=== PATIENT | male | born 1980 | race African-American/Black ===

== ENCOUNTER 2016-09-24 03:04 | Emergency (ER) | payer MEDICAID ==
[~2016-09-24] VITALS: Ht 188 cm; Wt 70.8 kg
[~2016-09-24 03:04] MED LIST: CARI-277 PO; NOR10T PO
[2016-09-24 04:28] LABS: Basophils # (auto) 0 uL; Basophils % (auto) 0.5 % (0.0-2.0); Eosinophils # (auto) 0.2 uL; Eosinophils % (auto) 4.3 % (0.0-7.0); Hematocrit 35.1 % (41.0-53.0); Hemoglobin 11.9 g/dL (13.5-17.5); Lymphocytes # (auto) 1.1 uL; Lymphocytes % (auto) 22.5 % (10.0-50.0); Mean Corpuscular Hemoglobin 30.2 pg (28.0-32.0); Mean Corpuscular Hgb Conc. 33.8 g/dL (32.0-36.0); Mean Corpuscular Volume 89.2 fL (80.0-100.0); Mean Platelet Volume 6.9 fL (7.4-10.4); Monocytes # (auto) 0.3 uL; Monocytes % (auto) 5.3 % (0.0-12.0); Neutrophils # (auto) 3.2 uL; Neutrophils % (auto) 67.4 % (37.0-80.0); Platelet Count (auto) 214 10^3/uL (140-450); Red Cell Distribution Width 13.1 % (11.6-16.0); White Blood Cell 4.7 10^3/uL (4.4-10.8)
[2016-09-24 04:50] LABS: Albumin 3.6 g/dL (3.4-5.0); BUN/Creatinine Ratio 13.2; Potassium 3.9 mmol/L (3.5-5.1)
[2016-09-24 04:53] LABS: Bilirubin, Total 0.4 mg/dL (0.2-1.0); Total Protein 6.6 g/dL (6.4-8.2)
[2016-09-24 07:30] VITALS: BP 117/71
[2016-09-24] MEDS ORDERED: ONDANSETRON HCL 4 MG/2 ML VIAL IV ONE (07:30)
[2016-09-24] MEDS ORDERED: HYDROmorphone HCL 2 MG/ML VL IV ONE (07:30)
[2016-09-24] MEDS ORDERED: HYDROcodone-ACET 10/325MG TAB PO ONE (08:00)
== END 2016-09-24 08:51 | disposition home or self-care (01) ==
LOC: ER 03:06
DX: R19.07 Generalized intra-abdominal and pelvic swelling, mass and lump (principal); G89.29 Other chronic pain
CPT/HCPCS: 36415; 74176; 80053; 85025

== ENCOUNTER 2016-10-22 02:16 | Emergency (ER) | payer MEDICAID ==
[~2016-10-22] VITALS: Ht 188 cm; Wt 70.8 kg
[2016-10-22 02:35] VITALS: BP 103/74
[2016-10-22 04:15] LABS: Basophils # (auto) 0 uL; Basophils % (auto) 0.3 % (0.0-2.0); CONDITION Y; Eosinophils # (auto) 0.2 uL; Eosinophils % (auto) 4.1 % (0.0-7.0); Hematocrit 36.2 % (41.0-53.0); Hemoglobin 12.2 g/dL (13.5-17.5); Lymphocytes # (auto) 1.2 uL; Lymphocytes % (auto) 26.2 % (10.0-50.0); Mean Corpuscular Hemoglobin 29.9 pg (28.0-32.0); Mean Corpuscular Hgb Conc. 33.7 g/dL (32.0-36.0); Mean Corpuscular Volume 88.8 fL (80.0-100.0); Mean Platelet Volume 7.2 fL (7.4-10.4); Monocytes # (auto) 0.2 uL; Monocytes % (auto) 5.2 % (0.0-12.0); Neutrophils # (auto) 2.8 uL; Neutrophils % (auto) 64.2 % (37.0-80.0); Platelet Count (auto) 233 10^3/uL (140-450); White Blood Cell 4.4 10^3/uL (4.4-10.8)
[2016-10-22 04:35] LABS: Albumin 3.7 g/dL (3.4-5.0); BUN/Creatinine Ratio 11.8; Calcium 8.5 mg/dL (8.5-10.1); Potassium 3.6 mmol/L (3.5-5.1)
[2016-10-22 04:38] LABS: Bilirubin, Total 0.4 mg/dL (0.2-1.0); Total Protein 7.1 g/dL (6.4-8.2)
== END 2016-10-22 07:11 | disposition left against medical advice (07) ==
LOC: ER 02:19
DX: R10.9 Unspecified abdominal pain (principal); Z53.21 Procedure and treatment not carried out due to patient leaving prior to being seen by health care provider
CPT/HCPCS: 36415; 80053; 82150; 83690; 85025

== ENCOUNTER 2017-01-13 02:11 | Emergency (ER) | payer MEDICAID ==
[~2017-01-13] VITALS: Ht 188 cm; Wt 71.7 kg
[2017-01-13 02:49] LABS: Basophils # (auto) 0 uL; Basophils % (auto) 0.6 % (0.0-2.0); Eosinophils # (auto) 0.2 uL; Eosinophils % (auto) 4.6 % (0.0-7.0); Hematocrit 42.1 % (41.0-53.0); Hemoglobin 13.7 g/dL (13.5-17.5); Lymphocytes # (auto) 1.3 uL; Lymphocytes % (auto) 30.7 % (10.0-50.0); Mean Corpuscular Hgb Conc. 32.6 g/dL (32.0-36.0); Mean Corpuscular Volume 91.9 fL (80.0-100.0); Mean Platelet Volume 6.6 fL (6.9-10.8); Monocytes # (auto) 0.2 uL; Monocytes % (auto) 5.4 % (0.0-12.0); Neutrophils # (auto) 2.4 uL; Neutrophils % (auto) 58.7 % (37.0-80.0); Nucleated Red Blood Cells % 0.1 %; Platelet Count (auto) 219 10^3/uL (140-450); Red Cell Distribution Width 12.7 % (11.8-14.3); White Blood Cell 4.1 10^3/uL (4.4-10.8)
[2017-01-13 02:49] LABS: Urine Bilirubin Negative (Negative); Urine Blood TRACE /uL (Negative); Urine Color Yellow (Yellow); Urine Glucose Normal (Normal); Urine Hyaline Cast MANY /lpf (0 - 2); Urine Ketone TRACE (Negative); Urine Mucus FEW (None Seen); Urine Nitrite Negative (Negative); Urine RBC 8 /hpf (0 - 3); Urine Urobilinogen Normal (Negative); Urine pH 5.5 (5.0-8.0)
[2017-01-13 03:08] LABS: Albumin 4.3 g/dL (3.4-5.0); BUN/Creatinine Ratio 11.6; Calcium 9.3 mg/dL (8.5-10.1); Potassium 3.6 mmol/L (3.5-5.1)
[2017-01-13 03:09] LABS: Bilirubin, Total 0.7 mg/dL (0.2-1.0); Total Protein 7.7 g/dL (6.4-8.2)
[2017-01-13] MEDS ORDERED: MORPHINE SULF INJ 2 MG/ML SYRINGE 1ML IV ONE (07:30)
[2017-01-13] MEDS ORDERED: ONDANSETRON HCL 4 MG/2 ML VIAL IV ONE (07:30)
[2017-01-13 10:48] VITALS: BP 131/50
== END 2017-01-13 11:11 | disposition short-term general hospital (02) ==
LOC: ER 02:13
DX: K46.9 Unspecified abdominal hernia without obstruction or gangrene (principal); Z79.899 Other long term (current) drug therapy
CPT/HCPCS: 36415; 74176; 80053; 81001; 82150; 83690; 85025; 85048; 86850; 86900; 86901; 87045; 87493; 87899; 96374; 96375; 99285; J2270; J2405; J7030

== ENCOUNTER 2017-01-25 02:13 | Emergency (ER) | payer MEDICAID ==
[~2017-01-25] VITALS: Ht 182.9 cm; Wt 79.4 kg
[2017-01-25] MEDS ORDERED: SODIUM CHLORIDE 0.9% 1,000 ML IVB ONE (06:40)
[2017-01-25 07:45] LABS: Basophils # (auto) 0 uL; Basophils % (auto) 0.4 % (0.0-2.0); Eosinophils # (auto) 0.2 uL; Eosinophils % (auto) 5.5 % (0.0-7.0); Hematocrit 42.4 % (41.0-53.0); Hemoglobin 13.7 g/dL (13.5-17.5); Lymphocytes # (auto) 1.6 uL; Lymphocytes % (auto) 35.5 % (10.0-50.0); Mean Corpuscular Hemoglobin 29.7 pg (28.0-32.0); Mean Corpuscular Hgb Conc. 32.2 g/dL (32.0-36.0); Mean Corpuscular Volume 92.2 fL (80.0-100.0); Mean Platelet Volume 6.8 fL (6.9-10.8); Monocytes # (auto) 0.2 uL; Monocytes % (auto) 4.5 % (0.0-12.0); Neutrophils # (auto) 2.4 uL; Neutrophils % (auto) 54.1 % (37.0-80.0); Nucleated Red Blood Cells % 0.1 %; Platelet Count (auto) 225 10^3/uL (140-450); Red Cell Distribution Width 12.8 % (11.8-14.3); White Blood Cell 4.5 10^3/uL (4.4-10.8)
[2017-01-25 08:08] LABS: Calcium 8.9 mg/dL (8.5-10.1)
[2017-01-25 08:11] LABS: BUN/Creatinine Ratio 10.7
[2017-01-25 09:06] VITALS: BP 111/71
[2017-01-25] MEDS ORDERED: POTASSIUM CHL 10% (20 MEQ/15ML) 15ml ORAL SOLN PO ONE (09:15)
== END 2017-01-25 09:40 | disposition home or self-care (01) ==
LOC: EDBD 02:13 → EDUNIT# 02:13 → ER 02:26
DX: D48.1 Neoplasm of uncertain behavior of connective and other soft tissue (principal); E87.6 Hypokalemia; E86.0 Dehydration
CPT/HCPCS: 36415; 80048; 83690; 83735; 84443; 85025; 96360; 99284; J7030

== ENCOUNTER 2017-01-27 15:46 | Emergency (ER) | payer MEDICAID ==
[~2017-01-27] VITALS: Ht 188 cm; Wt 72.1 kg
[2017-01-27 16:27] VITALS: BP 144/81
== END 2017-01-27 18:13 | disposition home or self-care (01) ==
LOC: ER 15:46
DX: G89.29 Other chronic pain (principal); R10.9 Unspecified abdominal pain; Z59.0 Homelessness
CPT/HCPCS: 94761

== ENCOUNTER 2017-02-10 04:46 | Emergency (ER) | payer MEDICAID ==
[~2017-02-10] VITALS: Ht 188 cm; Wt 71.7 kg
[2017-02-10 04:54] VITALS: BP 123/87
== END 2017-02-10 08:04 | disposition left against medical advice (07) ==
LOC: ER 04:53
DX: R10.9 Unspecified abdominal pain (principal); Z53.21 Procedure and treatment not carried out due to patient leaving prior to being seen by health care provider

== ENCOUNTER 2017-02-10 09:32 | Emergency (ER) | payer MEDICAID ==
[~2017-02-10] VITALS: Ht 188 cm; Wt 71.2 kg
[2017-02-10 10:14] LABS: Basophils # (auto) 0 uL; Basophils % (auto) 0.3 % (0.0-2.0); Eosinophils # (auto) 0.1 uL; Eosinophils % (auto) 1.4 % (0.0-7.0); Hematocrit 39.5 % (41.0-53.0); Hemoglobin 13.1 g/dL (13.5-17.5); Lymphocytes # (auto) 1.1 uL; Mean Corpuscular Hemoglobin 30.2 pg (28.0-32.0); Mean Corpuscular Hgb Conc. 33.2 g/dL (32.0-36.0); Mean Corpuscular Volume 91.1 fL (80.0-100.0); Mean Platelet Volume 6.7 fL (6.9-10.8); Monocytes # (auto) 0.4 uL; Monocytes % (auto) 6.4 % (0.0-12.0); Neutrophils # (auto) 4.3 uL; Neutrophils % (auto) 72.9 % (37.0-80.0); Platelet Count (auto) 202 10^3/uL (140-450); Red Cell Distribution Width 12.4 % (11.8-14.3); White Blood Cell 5.9 10^3/uL (4.4-10.8)
[2017-02-10 10:38] LABS: Urine Bilirubin Negative (Negative); Urine Blood 3+ /uL (Negative); Urine Color Yellow (Yellow); Urine Glucose Normal (Normal); Urine Ketone Negative (Negative); Urine Mucus FEW (None Seen); Urine Nitrite Negative (Negative); Urine RBC 266 /hpf (0 - 3); Urine Urobilinogen Normal (Negative); Urine pH 5.5 (5.0-8.0)
[2017-02-10 10:38] LABS: Albumin 4.1 g/dL (3.4-5.0); BUN/Creatinine Ratio 11.1; Bilirubin, Total 0.5 mg/dL (0.2-1.0); Calcium 8.9 mg/dL (8.5-10.1); Potassium 3.1 mmol/L (3.5-5.1); Total Protein 7.5 g/dL (6.4-8.2)
[2017-02-10] MEDS ORDERED: KETOROLAC TROMETH 30 MG/ML 1ML VIAL IV ONE (11:00)
[2017-02-10] MEDS ORDERED: SODIUM CHLORIDE 0.9% 1,000 ML IV ONE (11:15)
[2017-02-10 11:21] VITALS: BP 120/79
== END 2017-02-10 12:19 | disposition home or self-care (01) ==
LOC: ER 09:32
DX: N20.0 Calculus of kidney (principal); Z59.0 Homelessness
CPT/HCPCS: 36415; 74176; 80053; 81001; 85025; 96361; 96374; 99285; J1885

== ENCOUNTER 2017-04-06 08:00 | Emergency (ER) | payer MEDICAID ==
[~2017-04-06] VITALS: Ht 188 cm; Wt 71.7 kg
[2017-04-06 09:31] LABS: Basophils # (auto) 0 uL; Basophils % (auto) 0.5 % (0.0-2.0); Eosinophils # (auto) 0.2 uL; Eosinophils % (auto) 4.3 % (0.0-7.0); Hematocrit 39.7 % (41.0-53.0); Hemoglobin 13.1 g/dL (13.5-17.5); Lymphocytes # (auto) 1.3 uL; Lymphocytes % (auto) 30.2 % (10.0-50.0); Mean Corpuscular Hemoglobin 29.8 pg (28.0-32.0); Mean Corpuscular Volume 90.3 fL (80.0-100.0); Monocytes # (auto) 0.2 uL; Monocytes % (auto) 5.5 % (0.0-12.0); Neutrophils # (auto) 2.5 uL; Neutrophils % (auto) 59.5 % (37.0-80.0); Platelet Count (auto) 197 10^3/uL (140-450); Red Cell Distribution Width 12.5 % (11.8-14.3); White Blood Cell 4.2 10^3/uL (4.4-10.8)
[2017-04-06 09:44] LABS: Albumin 3.8 g/dL (3.4-5.0); BUN/Creatinine Ratio 11.3; Calcium 8.8 mg/dL (8.5-10.1); Potassium 3.4 mmol/L (3.5-5.1)
[2017-04-06 09:47] LABS: Bilirubin, Total 0.5 mg/dL (0.2-1.0); Total Protein 7.1 g/dL (6.4-8.2)
[2017-04-06 12:25] LABS: Urine Bilirubin Negative (Negative); Urine Blood Negative /uL (Negative); Urine Color Yellow (Yellow); Urine Glucose Normal (Normal); Urine Ketone Negative (Negative); Urine Mucus FEW (None Seen); Urine Nitrite Negative (Negative); Urine RBC <1 /hpf (0 - 3); Urine Urobilinogen Normal (Negative)
[2017-04-06] MEDS: CARISOPRODOL 350 MG TAB PO ONE (15:47)
[2017-04-06] MEDS: HYDROcodone-ACET 10/325MG TAB PO ONE (15:47)
[2017-04-06 18:35] VITALS: BP 131/64
== END 2017-04-06 18:51 | disposition home or self-care (01) ==
LOC: ER 08:00
DX: N13.2 Hydronephrosis with renal and ureteral calculous obstruction (principal); Z93.3 Colostomy status; Z59.0 Homelessness
CPT/HCPCS: 36415; 74176; 80053; 81001; 85025

== ENCOUNTER 2017-04-14 16:36 | Emergency (ER) | payer MEDICAID ==
[~2017-04-14] VITALS: Ht 188 cm; Wt 71.7 kg
[2017-04-14 18:10] LABS: Basophils # (auto) 0 uL; Basophils % (auto) 0.6 % (0.0-2.0); Eosinophils # (auto) 0.2 uL; Eosinophils % (auto) 4.8 % (0.0-7.0); Hematocrit 42.6 % (41.0-53.0); Lymphocytes % (auto) 21.3 % (10.0-50.0); Mean Corpuscular Hemoglobin 29.6 pg (28.0-32.0); Mean Corpuscular Hgb Conc. 32.8 g/dL (32.0-36.0); Mean Corpuscular Volume 90.4 fL (80.0-100.0); Monocytes # (auto) 0.3 uL; Monocytes % (auto) 6.6 % (0.0-12.0); Neutrophils # (auto) 3.1 uL; Neutrophils % (auto) 66.7 % (37.0-80.0); Nucleated Red Blood Cells % 0.1 %; Platelet Count (auto) 251 10^3/uL (140-450); Red Blood Cells 4.71 10^6/uL (4.5-5.90); Red Cell Distribution Width 12.5 % (11.8-14.3); White Blood Cell 4.6 10^3/uL (4.4-10.8)
[2017-04-14 18:25] LABS: Albumin 4.1 g/dL (3.4-5.0); BUN/Creatinine Ratio 11.1
[2017-04-14 18:32] LABS: Bilirubin, Total 0.4 mg/dL (0.2-1.0); Total Protein 8.1 g/dL (6.4-8.2)
[2017-04-14 21:18] VITALS: BP 117/79
== END 2017-04-14 23:41 | disposition home or self-care (01) ==
LOC: ER 16:43
DX: R10.84 Generalized abdominal pain (principal); G89.4 Chronic pain syndrome; Z93.3 Colostomy status; Z59.0 Homelessness
CPT/HCPCS: 36415; 74176; 80053; 81002; 85025

== ENCOUNTER 2017-04-17 04:20 | Emergency (ER) | payer MEDICAID ==
[~2017-04-17] VITALS: Ht 200.7 cm; Wt 71.2 kg
[2017-04-17 06:55] LABS: Basophils # (auto) 0 uL; Basophils % (auto) 0.5 % (0.0-2.0); Eosinophils # (auto) 0.2 uL; Eosinophils % (auto) 3.3 % (0.0-7.0); Hemoglobin 14.5 g/dL (13.5-17.5); Lymphocytes % (auto) 16.9 % (10.0-50.0); Mean Corpuscular Hemoglobin 29.7 pg (28.0-32.0); Mean Corpuscular Hgb Conc. 32.9 g/dL (32.0-36.0); Mean Corpuscular Volume 90.2 fL (80.0-100.0); Monocytes # (auto) 0.4 uL; Monocytes % (auto) 6.1 % (0.0-12.0); Neutrophils # (auto) 4.5 uL; Neutrophils % (auto) 73.2 % (37.0-80.0); Platelet Count (auto) 238 10^3/uL (140-450); Red Blood Cells 4.88 10^6/uL (4.5-5.90); Red Cell Distribution Width 12.5 % (11.8-14.3); White Blood Cell 6.1 10^3/uL (4.4-10.8)
[2017-04-17 07:12] LABS: Albumin 4.2 g/dL (3.4-5.0); Calcium 9.1 mg/dL (8.5-10.1); Potassium 3.7 mmol/L (3.5-5.1)
[2017-04-17 07:15] LABS: Bilirubin, Total 0.5 mg/dL (0.2-1.0)
[2017-04-17 10:58] VITALS: BP 129/72
== END 2017-04-17 11:21 | disposition home or self-care (01) ==
LOC: ER 04:28
DX: R19.00 Intra-abdominal and pelvic swelling, mass and lump, unspecified site (principal); Z82.49 Family history of ischemic heart disease and other diseases of the circulatory system; Z59.0 Homelessness
CPT/HCPCS: 36415; 80053; 85025

== ENCOUNTER 2017-04-27 02:34 | Emergency (ER) | payer MEDICAID ==
[~2017-04-27] VITALS: Ht 188 cm; Wt 72.1 kg
[2017-04-27 03:28] LABS: Basophils # (auto) 0 uL; Basophils % (auto) 0.7 % (0.0-2.0); Eosinophils # (auto) 0.2 uL; Eosinophils % (auto) 4.1 % (0.0-7.0); Hematocrit 41.1 % (41.0-53.0); Hemoglobin 13.4 g/dL (13.5-17.5); Lymphocytes # (auto) 1.1 uL; Lymphocytes % (auto) 22.9 % (10.0-50.0); Mean Corpuscular Hemoglobin 29.3 pg (28.0-32.0); Mean Corpuscular Hgb Conc. 32.5 g/dL (32.0-36.0); Mean Corpuscular Volume 90.1 fL (80.0-100.0); Monocytes # (auto) 0.3 uL; Monocytes % (auto) 5.5 % (0.0-12.0); Neutrophils # (auto) 3.3 uL; Neutrophils % (auto) 66.8 % (37.0-80.0); Nucleated Red Blood Cells % 0.1 %; Platelet Count (auto) 232 10^3/uL (140-450); Red Blood Cells 4.57 10^6/uL (4.5-5.90); Red Cell Distribution Width 12.7 % (11.8-14.3); White Blood Cell 4.9 10^3/uL (4.4-10.8)
[2017-04-27 03:48] LABS: Albumin 3.9 g/dL (3.4-5.0); Bilirubin, Total 0.4 mg/dL (0.2-1.0); Calcium 8.8 mg/dL (8.5-10.1); Potassium 3.9 mmol/L (3.5-5.1); Total Protein 7.4 g/dL (6.4-8.2)
[2017-04-27] MEDS ORDERED: SODIUM CHLORIDE 0.9% 1,000 ML IV ONE (09:14)
[2017-04-27] MEDS ORDERED: METOCLOPRAMIDE HCL 5MG/ml INJ 2ml VIAL IV ONE (09:15)
[2017-04-27] MEDS ORDERED: KETOROLAC TROMETH 30 MG/ML 1ML VIAL IV ONE (09:15)
[2017-04-27 10:23] VITALS: BP 133/117
== END 2017-04-27 12:28 | disposition home or self-care (01) ==
LOC: ER 02:35
DX: D48.1 Neoplasm of uncertain behavior of connective and other soft tissue (principal); G89.29 Other chronic pain; Z93.3 Colostomy status
CPT/HCPCS: 36415; 74018; 80053; 82150; 83690; 85025; 96361; 96374; 96375; 99285; J1885; J2765

== ENCOUNTER 2017-09-10 23:50 | Inpatient (IN) | payer MEDICAID, OTHER ==
[~2017-09-10] VITALS: Ht 188 cm; Wt 75.7 kg
[2017-09-11 00:39] LABS: Basophils # (auto) 0 uL; Basophils % (auto) 0.7 % (0.0-2.0); Eosinophils # (auto) 0.1 uL; Eosinophils % (auto) 3.1 % (0.0-7.0); Hematocrit 43.3 % (41.0-53.0); Hemoglobin 14.1 g/dL (13.5-17.5); Lymphocytes % (auto) 28.7 % (10.0-50.0); Mean Corpuscular Hemoglobin 29.5 pg (28.0-32.0); Mean Corpuscular Hgb Conc. 32.5 g/dL (32.0-36.0); Mean Corpuscular Volume 90.8 fL (80.0-100.0); Monocytes # (auto) 0.3 uL; Monocytes % (auto) 7.4 % (0.0-12.0); Neutrophils # (auto) 2.2 uL; Neutrophils % (auto) 60.1 % (37.0-80.0); Nucleated Red Blood Cells % 0.1 %; Platelet Count (auto) 208 10^3/uL (140-450); Red Blood Cells 4.77 10^6/uL (4.5-5.90); Red Cell Distribution Width 13.1 % (11.8-14.3); White Blood Cell 3.6 10^3/uL (4.4-10.8)
[2017-09-11 00:53] LABS: INR 0.98 (0.9-1.15); Partial Thromboplastin Time 23.1 sec (23.78-33.04); Prothrombin Time 10.5 sec (9.27-12.13)
[2017-09-11 00:58] LABS: Albumin 4.1 g/dL (3.4-5.0); Anion Gap 10 (5-15); Blood Urea Nitrogen 14 mg/dL (7-18); Calcium 8.9 mg/dL (8.5-10.1); Carbon Dioxide 24 mmol/L (21-32); Chloride 106 mmol/L (98-107); Glucose 87 mg/dL (74-106); Potassium 3.4 mmol/L (3.5-5.1); Sodium 140 mmol/L (136-145)
[2017-09-11 01:00] LABS: Alanine Aminotransferase 50 U/L (16-61); Aspartate Aminotransferase 31 U/L (15-37); BUN/Creatinine Ratio 8.6; GFR African American 62 mL/min; GFR Non-African American 51 mL/min
[2017-09-11 01:06] LABS: Alkaline Phosphatase 86 U/L (45-117); Bilirubin, Total 0.5 mg/dL (0.2-1.0); Total Protein 8.1 g/dL (6.4-8.2)
[2017-09-11 02:53] LABS: Urine Bacteria NONE SEEN /hpf (None Seen); Urine Blood 2+ /uL (Negative); Urine Mucus FEW (None Seen); Urine Specific Gravity 1.018 (1.001-1.035); Urine WBC 2 /hpf (0 - 3)
[2017-09-11] MEDS ORDERED: ONDANSETRON HCL 4 MG/2 ML VIAL IV ONE (04:15)
[2017-09-11] MEDS ORDERED: MORPHINE SULFATE 8mg/ml INJ SDV IV ONE (04:15)
[2017-09-11] MEDS ORDERED: MORPHINE SULFATE INJECTION 1 ML ONE (04:16)
[2017-09-11] MEDS ORDERED: ACETAMINOPHEN 500 MG TAB PO PRN (05:30)
[2017-09-11] MEDS ORDERED: MORPHINE SULFATE 8mg/ml INJ SDV IV PRN (05:30)
[2017-09-11] MEDS: ONDANSETRON HCL 4 MG/2 ML VIAL IV PRN ×2 (07:39→20:09)
[2017-09-11 08:34] VITALS: BP 136/81
[2017-09-11] MEDS: HYDROcodone-ACET 10/325MG TAB PO PRN (09:35)
[2017-09-11] MEDS ORDERED: POTASSIUM CHL 20MEQ/100ML 100 ML IV ONE (10:00)
[2017-09-11] MEDS: SODIUM CHLORIDE 0.9% 1,000 ML IV SCH (11:22)
[2017-09-11] MEDS: MORPHINE SULFATE 10 MG/ML INJ 1ML SDV IV PRN ×3 (11:42→20:25)
[2017-09-11 12:11] VITALS: BP 109/56
[2017-09-11 17:16] VITALS: BP 115/69
[2017-09-11 22:00] VITALS: BP 116/76
[2017-09-12] MEDS: MORPHINE SULFATE 10 MG/ML INJ 1ML SDV IV PRN ×5 (00:37→20:49)
[2017-09-12] MEDS: ONDANSETRON HCL 4 MG/2 ML VIAL IV PRN ×3 (00:47→06:23)
[2017-09-12] MEDS: SODIUM CHLORIDE 0.9% 1,000 ML IV SCH (04:00)
[2017-09-12 05:00] VITALS: BP 102/48
[2017-09-12 07:04] LABS: Basophils # (auto) 0 uL; Basophils % (auto) 0.6 % (0.0-2.0); Eosinophils # (auto) 0.1 uL; Eosinophils % (auto) 4.7 % (0.0-7.0); Hematocrit 38.8 % (41.0-53.0); Hemoglobin 12.7 g/dL (13.5-17.5); Lymphocytes # (auto) 0.8 uL; Mean Corpuscular Hemoglobin 29.6 pg (28.0-32.0); Mean Corpuscular Hgb Conc. 32.7 g/dL (32.0-36.0); Mean Corpuscular Volume 90.5 fL (80.0-100.0); Monocytes # (auto) 0.2 uL; Monocytes % (auto) 6.4 % (0.0-12.0); Neutrophils # (auto) 1.9 uL; Neutrophils % (auto) 62.3 % (37.0-80.0); Nucleated Red Blood Cells % 0.2 %; Platelet Count (auto) 178 10^3/uL (140-450); Red Blood Cells 4.28 10^6/uL (4.5-5.90); Red Cell Distribution Width 12.9 % (11.8-14.3)
[2017-09-12 07:23] LABS: BUN/Creatinine Ratio 8.3; Calcium 8.5 mg/dL (8.5-10.1); Potassium 3.8 mmol/L (3.5-5.1)
[2017-09-12 08:16] VITALS: BP 95/48
[2017-09-12] MEDS: HYDROcodone-ACET 10/325MG TAB PO PRN (09:21)
[2017-09-12] MEDS ORDERED: fentaNYL CITRATE 100 MCG/2 ML VL ONE (12:46)
[2017-09-12] MEDS ORDERED: MIDAZOLAM HCL 1MG/1ML-2 ML VIAL ONE (12:46)
[2017-09-12] MEDS ORDERED: ceFAZolin 1GM/100ML 100 ML IV ONE (12:52)
[2017-09-12 16:18] VITALS: BP 111/79
[2017-09-12 22:00] VITALS: BP 114/62
[2017-09-13] MEDS ORDERED: MORPHINE SULFATE 4 MG/ML SYR/VIAL ONE (00:37)
[2017-09-13] MEDS: MORPHINE SULFATE 10 MG/ML INJ 1ML SDV IV PRN (00:53)
[2017-09-13] MEDS: HYDROmorphone HCL 2 MG/ML VL IV PRN ×6 (04:38→21:12)
[2017-09-13 05:00] VITALS: BP 113/73
[2017-09-13 06:09] LABS: Basophils # (auto) 0 uL; Basophils % (auto) 0.4 % (0.0-2.0); Eosinophils # (auto) 0.1 uL; Hematocrit 41.1 % (41.0-53.0); Hemoglobin 13.5 g/dL (13.5-17.5); Lymphocytes # (auto) 1.2 uL; Lymphocytes % (auto) 35.2 % (10.0-50.0); Mean Corpuscular Hemoglobin 29.5 pg (28.0-32.0); Mean Corpuscular Hgb Conc. 32.9 g/dL (32.0-36.0); Mean Corpuscular Volume 89.8 fL (80.0-100.0); Monocytes # (auto) 0.3 uL; Monocytes % (auto) 7.3 % (0.0-12.0); Neutrophils # (auto) 1.9 uL; Neutrophils % (auto) 53.1 % (37.0-80.0); Nucleated Red Blood Cells % 0.1 %; Platelet Count (auto) 176 10^3/uL (140-450); Red Blood Cells 4.57 10^6/uL (4.5-5.90); Red Cell Distribution Width 12.6 % (11.8-14.3); White Blood Cell 3.5 10^3/uL (4.4-10.8)
[2017-09-13 06:28] LABS: Albumin 3.4 g/dL (3.4-5.0); BUN/Creatinine Ratio 9.2; Bilirubin, Total 0.5 mg/dL (0.2-1.0); Calcium 8.2 mg/dL (8.5-10.1); Potassium 3.3 mmol/L (3.5-5.1); Total Protein 6.5 g/dL (6.4-8.2)
[2017-09-13 09:00] VITALS: BP 127/82
[2017-09-13] MEDS: POTASSIUM CHL 20MEQ/100ML 100 ML IV SCH ×2 (09:09→12:32)
[2017-09-13] MEDS: SODIUM CHLORIDE 0.9% 1,000 ML IV SCH ×2 (12:30→23:53)
[2017-09-13 13:00] VITALS: BP 142/89
[2017-09-13 17:00] VITALS: BP 121/72
[2017-09-13 20:00] VITALS: BP 122/78
[2017-09-13 21:00] VITALS: BP 122/78
[2017-09-14] VITALS (7 sets, daily range): BP systolic 109–132; BP diastolic 62–89
[2017-09-14] MEDS: HYDROmorphone HCL 2 MG/ML VL IV PRN ×3 (01:38→09:50)
[2017-09-14 06:02] LABS: BUN/Creatinine Ratio 10.7; Calcium 8.2 mg/dL (8.5-10.1); Potassium 3.4 mmol/L (3.5-5.1)
[2017-09-14] MEDS ORDERED: POTASSIUM CHL 20 Meq TABLET PO ONE (10:45)
== END 2017-09-14 16:50 | disposition home health service (06) | DRG 443 ==
LOC: ER 23:51 → OVERFLOW 23:52 → CENTRAL 09-11 08:06
PROVIDERS: ADMIT Nurse Practitioner Family; ATTEND Internal Medicine
PROC: 0T9330Z Drainage of Right Kidney Pelvis with Drainage Device, Percutaneous Approach (ICD-10-PCS; principal; 2017-09-12)
DX: N13.2 Hydronephrosis with renal and ureteral calculous obstruction (principal); N17.0 Acute kidney failure with tubular necrosis; F41.9 Anxiety disorder, unspecified; G89.29 Other chronic pain; R19.09 Other intra-abdominal and pelvic swelling, mass and lump; Z80.0 Family history of malignant neoplasm of digestive organs; Z80.3 Family history of malignant neoplasm of breast; Z82.49 Family history of ischemic heart disease and other diseases of the circulatory system; Z85.038 Personal history of other malignant neoplasm of large intestine; Z86.010 Personal history of colon polyps; Z90.49 Acquired absence of other specified parts of digestive tract; Z91.19 Patient's noncompliance with other medical treatment and regimen; Z93.3 Colostomy status; N18.2 Chronic kidney disease, stage 2 (mild)
CPT/HCPCS: 36415; 74176; 74425; 76000; 76942; 80048; 80053; 81001; 82378; 84484; 85025; 85610; 85730; 96374; 96375; 99152; C1729; J0690; J2250; J2405; J3480

== ENCOUNTER 2017-09-18 21:28 | Emergency (ER) | payer MEDICAID, OTHER ==
[~2017-09-18] VITALS: Ht 188 cm; Wt 69.4 kg
[2017-09-18 22:11] LABS: Basophils # (auto) 0 uL; Basophils % (auto) 1.2 % (0.0-2.0); Eosinophils # (auto) 0.2 uL; Eosinophils % (auto) 4.7 % (0.0-7.0); Hematocrit 43.1 % (41.0-53.0); Hemoglobin 14.1 g/dL (13.5-17.5); Lymphocytes # (auto) 1.1 uL; Lymphocytes % (auto) 30.5 % (10.0-50.0); Mean Corpuscular Hemoglobin 29.4 pg (28.0-32.0); Mean Corpuscular Hgb Conc. 32.7 g/dL (32.0-36.0); Mean Corpuscular Volume 89.9 fL (80.0-100.0); Monocytes # (auto) 0.2 uL; Monocytes % (auto) 6.5 % (0.0-12.0); Neutrophils % (auto) 57.1 % (37.0-80.0); Nucleated Red Blood Cells % 0.1 %; Platelet Count (auto) 234 10^3/uL (140-450); White Blood Cell 3.5 10^3/uL (4.4-10.8)
[2017-09-18 22:26] LABS: Albumin 3.8 g/dL (3.4-5.0); BUN/Creatinine Ratio 10.4; Calcium 9.1 mg/dL (8.5-10.1); Potassium 3.5 mmol/L (3.5-5.1)
[2017-09-18 22:28] LABS: Bilirubin, Total 0.5 mg/dL (0.2-1.0); Total Protein 7.8 g/dL (6.4-8.2); Urine Bacteria NONE SEEN /hpf (None Seen); Urine Blood Negative /uL (Negative); Urine Mucus FEW (None Seen); Urine Specific Gravity 1.033 (1.001-1.035); Urine WBC <1 /hpf (0 - 3)
[2017-09-19] MEDS ORDERED: HYDROmorphone HCL 2 MG/ML VL IM ONE (02:45)
[2017-09-19] MEDS ORDERED: ONDANSETRON ODT 4 MG TAB PO ONE (02:45)
[2017-09-19 03:57] VITALS: BP 129/87
== END 2017-09-19 04:51 | disposition home or self-care (01) ==
LOC: ER 21:28
DX: R10.13 Epigastric pain (principal); C16.9 Malignant neoplasm of stomach, unspecified; Z93.6 Other artificial openings of urinary tract status; Z87.442 Personal history of urinary calculi
CPT/HCPCS: 36415; 74176; 80053; 81001; 83690; 85025; 96372; 99285; J1170; Q0162

== ENCOUNTER 2017-09-25 01:19 | Emergency (ER) | payer OTHER ==
[~2017-09-25] VITALS: Ht 188 cm; Wt 69.9 kg
[2017-09-25 02:19] LABS: Basophils # (auto) 0 uL; Basophils % (auto) 0.4 % (0.0-2.0); Eosinophils # (auto) 0.1 uL; Eosinophils % (auto) 1.3 % (0.0-7.0); Hematocrit 41.3 % (41.0-53.0); Hemoglobin 13.7 g/dL (13.5-17.5); Lymphocytes # (auto) 0.6 uL; Lymphocytes % (auto) 12.2 % (10.0-50.0); Mean Corpuscular Hemoglobin 29.5 pg (28.0-32.0); Mean Corpuscular Hgb Conc. 33.1 g/dL (32.0-36.0); Mean Corpuscular Volume 89.2 fL (80.0-100.0); Monocytes # (auto) 0.4 uL; Monocytes % (auto) 7.1 % (0.0-12.0); Platelet Count (auto) 269 10^3/uL (140-450); Red Blood Cells 4.63 10^6/uL (4.5-5.90); Red Cell Distribution Width 12.7 % (11.8-14.3)
[2017-09-25 02:40] LABS: Potassium 3.2 mmol/L (3.5-5.1)
[2017-09-25 02:41] LABS: BUN/Creatinine Ratio 7.4; Bilirubin, Total 0.6 mg/dL (0.2-1.0); Calcium 8.8 mg/dL (8.5-10.1); Total Protein 7.9 g/dL (6.4-8.2)
[2017-09-25 02:42] LABS: Albumin 7.9 g/dL (3.4-5.0)
[2017-09-25 04:06] LABS: Urine Bacteria FEW /hpf (None Seen); Urine Blood TRACE /uL (Negative); Urine Specific Gravity 1.017 (1.001-1.035); Urine WBC 23 /hpf (0 - 3)
[2017-09-25] MEDS ORDERED: ONDANSETRON ODT 4 MG TAB PO ONE (04:45)
[2017-09-25] MEDS ORDERED: MEPERIDINE HCL (50 MG/ML) 1 ML VIAL IM ONE (04:45)
[2017-09-25 05:55] VITALS: BP 131/88
[2017-09-25] MEDS ORDERED: POTASSIUM CHL 20 Meq TABLET PO ONE (06:15)
[2017-09-25 06:20] LABS: Amphetamine Screen, Urine NEGATIVE (NEGATIVE); Barbiturate Scree,Urine NEGATIVE (NEGATIVE); Benzodiazephine Screen, Urine NEGATIVE (NEGATIVE); Cannabinoid Screen, Urine NEGATIVE (NEGATIVE); Cocaine Screen, Urine NEGATIVE (NEGATIVE)
[2017-09-25 06:22] LABS: Alcohol, Urine < 3.0 mg/dL (0-5); Opiate Scree,Urine NEGATIVE (NEGATIVE); Phencyclidine Screen, Urine NEGATIVE (NEGATIVE)
== END 2017-09-25 05:59 | disposition home or self-care (01) ==
LOC: ER 01:20
DX: N39.0 Urinary tract infection, site not specified (principal); C79.9 Secondary malignant neoplasm of unspecified site; Z85.038 Personal history of other malignant neoplasm of large intestine
CPT/HCPCS: 36415; 80053; 80307; 81001; 83690; 85025; 96372; 99284; J2175; Q0162

== ENCOUNTER 2017-10-02 23:19 | Emergency (ER) | payer OTHER ==
[~2017-10-02] VITALS: Ht 188 cm; Wt 69.4 kg
[2017-10-03 00:15] LABS: Basophils # (auto) 0 uL; Basophils % (auto) 0.4 % (0.0-2.0); Eosinophils # (auto) 0 uL; Eosinophils % (auto) 0.9 % (0.0-7.0); Hematocrit 41.1 % (41.0-53.0); Hemoglobin 13.5 g/dL (13.5-17.5); Lymphocytes # (auto) 0.7 uL; Lymphocytes % (auto) 14.6 % (10.0-50.0); Mean Corpuscular Hgb Conc. 32.8 g/dL (32.0-36.0); Mean Corpuscular Volume 88.5 fL (80.0-100.0); Monocytes # (auto) 0.4 uL; Monocytes % (auto) 9.2 % (0.0-12.0); Neutrophils # (auto) 3.5 uL; Neutrophils % (auto) 74.9 % (37.0-80.0); Nucleated Red Blood Cells % 0.1 %; Platelet Count (auto) 339 10^3/uL (140-450); Red Blood Cells 4.65 10^6/uL (4.5-5.90); Red Cell Distribution Width 12.4 % (11.8-14.3); White Blood Cell 4.7 10^3/uL (4.4-10.8)
[2017-10-03 00:20] LABS: Albumin 3.6 g/dL (3.4-5.0); Calcium 8.7 mg/dL (8.5-10.1); Magnesium 2.1 mg/dL (1.6-2.6)
[2017-10-03 00:22] LABS: BUN/Creatinine Ratio 6.8
[2017-10-03 00:24] LABS: Bilirubin, Total 0.5 mg/dL (0.2-1.0); Total Protein 8.2 g/dL (6.4-8.2)
[2017-10-03] MEDS ORDERED: POTASSIUM CHL 10% (20 MEQ/15ML) 15ml ORAL SOLN PO ONE (07:30)
[2017-10-03 07:51] VITALS: BP 117/76
== END 2017-10-03 08:04 | disposition home or self-care (01) ==
LOC: ER 23:22
DX: K29.70 Gastritis, unspecified, without bleeding (principal); E87.6 Hypokalemia; R53.1 Weakness; Z79.899 Other long term (current) drug therapy; Z87.442 Personal history of urinary calculi
CPT/HCPCS: 36415; 80053; 83690; 83735; 85025

== ENCOUNTER 2017-10-05 08:36 | Emergency (ER) | payer OTHER ==
[~2017-10-05] VITALS: Ht 188 cm; Wt 69.9 kg
[2017-10-05 09:12] LABS: Urine Bacteria NONE SEEN /hpf (None Seen); Urine Blood 2+ /uL (Negative); Urine WBC 4540 /hpf (0 - 3); Urine WBC Clumps PRESENT /hpf (None Seen)
[2017-10-05 14:42] VITALS: BP 122/87
== END 2017-10-05 17:39 | disposition left against medical advice (07) ==
LOC: ER 08:36
DX: R10.9 Unspecified abdominal pain (principal); Z53.21 Procedure and treatment not carried out due to patient leaving prior to being seen by health care provider
CPT/HCPCS: 81001

== ENCOUNTER 2017-11-15 02:03 | Emergency (ER) | payer MEDICAID ==
[~2017-11-15] VITALS: Ht 188 cm; Wt 72.1 kg
[2017-11-15 02:38] LABS: Basophils # (auto) 0 uL; Basophils % (auto) 0.7 % (0.0-2.0); Eosinophils # (auto) 0.1 uL; Eosinophils % (auto) 2.4 % (0.0-7.0); Hematocrit 39.1 % (41.0-53.0); Hemoglobin 12.4 g/dL (13.5-17.5); Mean Corpuscular Hemoglobin 28.5 pg (28.0-32.0); Mean Corpuscular Hgb Conc. 31.8 g/dL (32.0-36.0); Mean Corpuscular Volume 89.6 fL (80.0-100.0); Monocytes # (auto) 0.3 uL; Monocytes % (auto) 6.5 % (0.0-12.0); Neutrophils # (auto) 2.9 uL; Neutrophils % (auto) 67.4 % (37.0-80.0); Nucleated Red Blood Cells % 0.1 %; Platelet Count (auto) 218 10^3/uL (140-450); Red Blood Cells 4.36 10^6/uL (4.5-5.90); Red Cell Distribution Width 14.4 % (11.8-14.3); White Blood Cell 4.3 10^3/uL (4.4-10.8)
[2017-11-15 02:54] LABS: INR 0.97 (0.9-1.15); Partial Thromboplastin Time 23.6 sec (23.78-33.04); Prothrombin Time 10.4 sec (9.27-12.13)
[2017-11-15 02:58] LABS: Albumin 3.9 g/dL (3.4-5.0); BUN/Creatinine Ratio 12.9; Calcium 8.8 mg/dL (8.5-10.1); Potassium 3.7 mmol/L (3.5-5.1)
[2017-11-15 03:00] LABS: Bilirubin, Total 0.3 mg/dL (0.2-1.0); Total Protein 7.7 g/dL (6.4-8.2)
[2017-11-15 09:12] VITALS: BP 117/49
[2017-12-12] MEDS ORDERED: ALPR0.25 PO (15:18)
== END 2017-11-15 09:59 | disposition home or self-care (01) ==
LOC: ER 02:08
DX: N20.0 Calculus of kidney (principal); D64.9 Anemia, unspecified; F41.9 Anxiety disorder, unspecified; Z93.6 Other artificial openings of urinary tract status
CPT/HCPCS: 36415; 74176; 80053; 85025; 85610; 85730

== ENCOUNTER 2017-12-08 15:49 | Emergency (ER) | payer MEDICAID, OTHER ==
[~2017-12-08] VITALS: Ht 188 cm; Wt 72.1 kg
[2017-12-08 19:10] VITALS: BP 118/74
[2017-12-12] MEDS ORDERED: ALPR0.25 PO (15:18)
== END 2017-12-08 19:20 | disposition home or self-care (01) ==
LOC: ER 15:49
DX: R10.9 Unspecified abdominal pain (principal); Z76.0 Encounter for issue of repeat prescription; Z87.442 Personal history of urinary calculi

== ENCOUNTER 2017-12-16 05:35 | Day surgery (SDC) | payer MEDICAID ==
[2017-12-12 15:45] LABS: Basophils # (auto) 0 uL; Basophils % (auto) 0.4 % (0.0-2.0); Eosinophils # (auto) 0.1 uL; Eosinophils % (auto) 5.3 % (0.0-7.0); Hematocrit 40.1 % (41.0-53.0); Hemoglobin 13.1 g/dL (13.5-17.5); Lymphocytes # (auto) 0.9 uL; Lymphocytes % (auto) 30.7 % (10.0-50.0); Mean Corpuscular Hgb Conc. 32.5 g/dL (32.0-36.0); Monocytes # (auto) 0.2 uL; Monocytes % (auto) 7.1 % (0.0-12.0); Neutrophils # (auto) 1.6 uL; Neutrophils % (auto) 56.5 % (37.0-80.0); Nucleated Red Blood Cells % 0.2 %; Platelet Count (auto) 245 10^3/uL (140-450); Red Blood Cells 4.51 10^6/uL (4.5-5.90); Red Cell Distribution Width 14.1 % (11.8-14.3); White Blood Cell 2.8 10^3/uL (4.4-10.8)
[2017-12-12 15:55] LABS: INR 0.93 (0.9-1.15); Partial Thromboplastin Time 22.5 sec (23.78-33.04)
[2017-12-12 16:07] LABS: Albumin 3.6 g/dL (3.4-5.0); BUN/Creatinine Ratio 10.4; Bilirubin, Total 0.4 mg/dL (0.2-1.0); Calcium 8.7 mg/dL (8.5-10.1); Potassium 3.5 mmol/L (3.5-5.1); Total Protein 7.3 g/dL (6.4-8.2)
[2017-12-12 16:08] LABS: Urine Bacteria FEW /hpf (None Seen); Urine Blood Negative /uL (Negative); Urine Mucus FEW (None Seen); Urine Specific Gravity 1.032 (1.001-1.035); Urine WBC 51 /hpf (0 - 3)
[~2017-12-16] VITALS: Ht 188 cm; Wt 71.7 kg
[~2017-12-16 05:35] MED LIST changes: +ALPR0.25 PO
[2017-12-16] MEDS ORDERED: ceFAZolin 1GM/50ML 50 ML IV ONE (06:39)
[2017-12-16] MEDS ORDERED: MEPERIDINE HCL (50 MG/ML) 1 ML VIAL ONE (07:34)
[2017-12-16] MEDS ORDERED: MIDAZOLAM HCL 1MG/1ML-2 ML VIAL ONE (07:34)
[2017-12-16] MEDS ORDERED: fentaNYL CITRATE 100 MCG/2 ML VL ONE (07:34)
[2017-12-16] MEDS ORDERED: DEXAMETHASONE SOD PHOS 10MG/1ML VIAL INJ ONE (07:53)
[2017-12-16] MEDS ORDERED: PROPOFOL 10 MG/ML 20 ML IV ONE (07:53)
[2017-12-16] MEDS ORDERED: PHENYLEPHRINE HCL 10 MG/ML VL ONE (07:55)
[2017-12-16] MEDS ORDERED: ePHEDrine SULFATE 50 MG/ML AMP IV PRN (08:00)
[2017-12-16] MEDS ORDERED: MIDAZOLAM HCL 1MG/1ML-2 ML VIAL IV PRN (08:00)
[2017-12-16] MEDS ORDERED: MORPHINE SULFATE 4 MG/ML SYR/VIAL IV PRN (08:00)
[2017-12-16] MEDS ORDERED: LABETALOL HCL 5 MG/ML 4ML SYRINGE IV PRN (08:00)
[2017-12-16] MEDS ORDERED: HYDROmorphone HCL 2 MG/ML VL IV PRN (08:00)
[2017-12-16] MEDS ORDERED: hydrALAZINE HCL 20 MG/ML VL IV PRN (08:00)
[2017-12-16] MEDS ORDERED: MORPHINE SULFATE 4 MG/ML SYR/VIAL IV ONE (08:00)
[2017-12-16] MEDS ORDERED: KETOROLAC TROMETH 30 MG/ML 1ML VIAL IV ONE (08:00)
[2017-12-16] MEDS ORDERED: ONDANSETRON HCL 4 MG/2 ML VIAL IV ONE (08:00)
[2017-12-16 09:00] VITALS: BP 135/91
== END 2017-12-16 09:00 | disposition home or self-care (01) ==
LOC: SUR 05:35
PROVIDERS: ATTEND Urology
DX: N20.0 Calculus of kidney (principal); K85.90 Acute pancreatitis without necrosis or infection, unspecified; Z79.899 Other long term (current) drug therapy; Z85.46 Personal history of malignant neoplasm of prostate; Z98.890 Other specified postprocedural states; Z80.0 Family history of malignant neoplasm of digestive organs; Z79.1 Long term (current) use of non-steroidal anti-inflammatories (NSAID); Z90.49 Acquired absence of other specified parts of digestive tract; Z93.6 Other artificial openings of urinary tract status
CPT/HCPCS: 50590; J2175; J2370; J3010; 36415; 80053; 81001; 85025; 85610; 85730; J0690; J1100; J2250; J2704

== ENCOUNTER → 2017-12-26 | Outpatient (CLI) | payer MEDICAID ==
[~2017-12-26] MED LIST changes: +IOHEXOL 300 MG/ML 100ML BOTTLE IJ ONE
== END | disposition home or self-care (01) ==
LOC: XY 10:56
PROVIDERS: ATTEND Urology
DX: N20.0 Calculus of kidney (principal); Z85.46 Personal history of malignant neoplasm of prostate; Z80.0 Family history of malignant neoplasm of digestive organs
CPT/HCPCS: 50435; Q9967; 74425

== ENCOUNTER 2017-12-29 18:37 | Inpatient (IN) | payer MEDICAID ==
[~2017-12-29] VITALS: Ht 188 cm; Wt 71.2 kg
[~2017-12-29 18:37] MED LIST changes: -IOHEXOL 300 MG/ML 100ML BOTTLE IJ ONE
[2017-12-29 21:34] LABS: Basophils # (auto) 0 uL; Basophils % (auto) 0.6 % (0.0-2.0); Eosinophils # (auto) 0.3 uL; Eosinophils % (auto) 5.4 % (0.0-7.0); Hematocrit 44.9 % (41.0-53.0); Hemoglobin 14.5 g/dL (13.5-17.5); Lymphocytes # (auto) 1.5 uL; Lymphocytes % (auto) 28.6 % (10.0-50.0); Mean Corpuscular Hemoglobin 28.8 pg (28.0-32.0); Mean Corpuscular Hgb Conc. 32.3 g/dL (32.0-36.0); Mean Corpuscular Volume 89.2 fL (80.0-100.0); Monocytes # (auto) 0.4 uL; Monocytes % (auto) 7.4 % (0.0-12.0); Nucleated Red Blood Cells % 0.1 %; Platelet Count (auto) 257 10^3/uL (140-450); Red Blood Cells 5.04 10^6/uL (4.5-5.90); Red Cell Distribution Width 13.9 % (11.8-14.3); White Blood Cell 5.1 10^3/uL (4.4-10.8)
[2017-12-29 21:46] LABS: INR 0.93 (0.9-1.15); Partial Thromboplastin Time 25.6 sec (23.78-33.04)
[2017-12-29 21:51] LABS: Albumin 3.9 g/dL (3.4-5.0); Potassium 3.9 mmol/L (3.5-5.1)
[2017-12-29 21:52] LABS: Bilirubin, Total 0.4 mg/dL (0.2-1.0); Total Protein 8.5 g/dL (6.4-8.2)
[2017-12-30] MEDS ORDERED: ONDANSETRON HCL 4 MG/2 ML VIAL IV ONE (01:30)
[2017-12-30] MEDS ORDERED: HYDROmorphone HCL 2 MG/ML VL IV ONE (01:30)
[2017-12-30] MEDS ORDERED: SODIUM CHLORIDE 0.9% 1,000 ML IV ONE (01:30)
[2017-12-30] MEDS ORDERED: ALPRAZolam 0.25 MG TAB PO PRN (06:15)
[2017-12-30] MEDS ORDERED: traMADol HCL 50 MG TAB PO PRN (06:15)
[2017-12-30] MEDS ORDERED: MORPHINE SULF INJ 2 MG/ML SYRINGE 1ML IV PRN (06:15)
[2017-12-30] MEDS ORDERED: ACETAMINOPHEN 500 MG TAB PO PRN (06:15)
[2017-12-30] MEDS ORDERED: ONDANSETRON HCL 4 MG/2 ML VIAL IV PRN (06:15)
[2017-12-30] MEDS ORDERED: HYDROcodone-ACET 5/325MG TAB PO PRN (06:15)
[2017-12-30 06:43] VITALS: BP 127/82
[2017-12-30 07:59] LABS: Basophils # (auto) 0 uL; Basophils % (auto) 0.4 % (0.0-2.0); Eosinophils # (auto) 0.1 uL; Eosinophils % (auto) 4.1 % (0.0-7.0); Hematocrit 42.6 % (41.0-53.0); Hemoglobin 13.7 g/dL (13.5-17.5); Mean Corpuscular Hemoglobin 28.5 pg (28.0-32.0); Mean Corpuscular Hgb Conc. 32.1 g/dL (32.0-36.0); Mean Corpuscular Volume 88.6 fL (80.0-100.0); Monocytes # (auto) 0.3 uL; Monocytes % (auto) 8.9 % (0.0-12.0); Neutrophils # (auto) 2.1 uL; Neutrophils % (auto) 58.6 % (37.0-80.0); Nucleated Red Blood Cells % 0.1 %; Platelet Count (auto) 248 10^3/uL (140-450); Red Cell Distribution Width 13.7 % (11.8-14.3); White Blood Cell 3.6 10^3/uL (4.4-10.8)
[2017-12-30 08:06] LABS: BUN/Creatinine Ratio 8.9; Calcium 8.7 mg/dL (8.5-10.1); Potassium 3.3 mmol/L (3.5-5.1)
== END 2017-12-30 08:09 | disposition left against medical advice (07) | DRG 466 ==
LOC: ER 18:37 → OVERFLOW 18:38
PROVIDERS: ADMIT Nurse Practitioner Family; ATTEND Internal Medicine
DX: T83.022A Displacement of nephrostomy catheter, initial encounter (principal); K85.90 Acute pancreatitis without necrosis or infection, unspecified; R18.8 Other ascites; M43.06 Spondylolysis, lumbar region; F41.9 Anxiety disorder, unspecified; Y73.2 Prosthetic and other implants, materials and accessory gastroenterology and urology devices associated with adverse incidents; Z82.49 Family history of ischemic heart disease and other diseases of the circulatory system; Z85.038 Personal history of other malignant neoplasm of large intestine; Z87.442 Personal history of urinary calculi; Z93.3 Colostomy status
CPT/HCPCS: 36415; 74176; 80048; 80053; 82150; 83690; 85025; 85610; 85730; 96361; 96374; 96375; J2405

== ENCOUNTER 2018-01-01 21:04 | Emergency (ER) | payer MEDICAID ==
[~2018-01-01] VITALS: Ht 188 cm; Wt 71.7 kg
[2018-01-01 22:01] LABS: Basophils # (auto) 0 uL; Basophils % (auto) 0.4 % (0.0-2.0); Eosinophils # (auto) 0.2 uL; Eosinophils % (auto) 4.4 % (0.0-7.0); Hematocrit 40.9 % (41.0-53.0); Hemoglobin 13.4 g/dL (13.5-17.5); Lymphocytes % (auto) 26.2 % (10.0-50.0); Mean Corpuscular Hemoglobin 28.8 pg (28.0-32.0); Mean Corpuscular Hgb Conc. 32.8 g/dL (32.0-36.0); Mean Corpuscular Volume 87.9 fL (80.0-100.0); Monocytes # (auto) 0.2 uL; Monocytes % (auto) 5.8 % (0.0-12.0); Neutrophils # (auto) 2.3 uL; Neutrophils % (auto) 63.2 % (37.0-80.0); Nucleated Red Blood Cells % 0.1 %; Platelet Count (auto) 271 10^3/uL (140-450); Red Blood Cells 4.66 10^6/uL (4.5-5.90); Red Cell Distribution Width 13.3 % (11.8-14.3); White Blood Cell 3.6 10^3/uL (4.4-10.8)
[2018-01-01 22:22] LABS: Alanine Aminotransferase 31 U/L (16-61); Albumin 3.9 g/dL (3.4-5.0); Alkaline Phosphatase 121 U/L (45-117); Anion Gap 7 (5-15); Aspartate Aminotransferase 22 U/L (15-37); BUN/Creatinine Ratio 12.4; Bilirubin, Total 0.4 mg/dL (0.2-1.0); Blood Urea Nitrogen 19 mg/dL (7-18); Calcium 9.2 mg/dL (8.5-10.1); Carbon Dioxide 25 mmol/L (21-32); Chloride 107 mmol/L (98-107); GFR African American 66 mL/min; GFR Non-African American 54 mL/min; Glucose 82 mg/dL (74-106); Potassium 3.4 mmol/L (3.5-5.1); Sodium 139 mmol/L (136-145); Total Protein 8.3 g/dL (6.4-8.2)
[2018-01-01 22:33] LABS: Urine Bacteria FEW /hpf (None Seen); Urine Blood TRACE /uL (Negative); Urine WBC 52 /hpf (0 - 3)
[2018-01-02] MEDS ORDERED: KETOROLAC TROMETH 60MG/2ML VIAL IM ONE (04:00)
[2018-01-02] MEDS ORDERED: HYDROcodone-ACET 10/325MG TAB PO ONE (06:15)
[2018-01-02] MEDS ORDERED: KETOROLAC TROMETH 30 MG/ML 1ML VIAL IV ONE (06:15)
[2018-01-02 07:30] VITALS: BP 121/74
== END 2018-01-02 06:08 | disposition left against medical advice (07) ==
LOC: ER 21:04
DX: N39.0 Urinary tract infection, site not specified (principal); Z87.442 Personal history of urinary calculi; Z53.29 Procedure and treatment not carried out because of patient's decision for other reasons
CPT/HCPCS: 36415; 74176; 80053; 81001; 84484; 85025; 96374; 99285; J1885

== ENCOUNTER 2018-01-04 01:10 | Emergency (ER) | payer MEDICAID ==
[~2018-01-04] VITALS: Ht 188 cm; Wt 72.1 kg
[2018-01-04 01:45] LABS: Basophils # (auto) 0 uL; Basophils % (auto) 0.3 % (0.0-2.0); Eosinophils # (auto) 0.1 uL; Eosinophils % (auto) 2.3 % (0.0-7.0); Hematocrit 40.4 % (41.0-53.0); Hemoglobin 13.1 g/dL (13.5-17.5); Lymphocytes % (auto) 16.4 % (10.0-50.0); Mean Corpuscular Hemoglobin 28.4 pg (28.0-32.0); Mean Corpuscular Hgb Conc. 32.5 g/dL (32.0-36.0); Mean Corpuscular Volume 87.3 fL (80.0-100.0); Monocytes # (auto) 0.3 uL; Monocytes % (auto) 5.8 % (0.0-12.0); Neutrophils # (auto) 4.5 uL; Neutrophils % (auto) 75.2 % (37.0-80.0); Nucleated Red Blood Cells % 0.1 %; Platelet Count (auto) 251 10^3/uL (140-450); Red Blood Cells 4.63 10^6/uL (4.5-5.90); Red Cell Distribution Width 13.3 % (11.8-14.3); White Blood Cell 5.9 10^3/uL (4.4-10.8)
[2018-01-04 01:47] LABS: Urine Bacteria FEW /hpf (None Seen); Urine Blood Negative /uL (Negative); Urine Specific Gravity 1.021 (1.001-1.035); Urine WBC 94 /hpf (0 - 3)
[2018-01-04 01:53] LABS: Alcohol, Urine < 3.0 mg/dL (0-5); Amphetamine Screen, Urine NEGATIVE (NEGATIVE); Barbiturate Scree,Urine NEGATIVE (NEGATIVE); Benzodiazephine Screen, Urine NEGATIVE (NEGATIVE); Cannabinoid Screen, Urine NEGATIVE (NEGATIVE); Cocaine Screen, Urine NEGATIVE (NEGATIVE); Opiate Scree,Urine NEGATIVE (NEGATIVE); Phencyclidine Screen, Urine NEGATIVE (NEGATIVE)
[2018-01-04 02:01] LABS: Albumin 3.7 g/dL (3.4-5.0); BUN/Creatinine Ratio 10.1; Calcium 8.7 mg/dL (8.5-10.1); Potassium 3.2 mmol/L (3.5-5.1)
[2018-01-04 02:04] LABS: Bilirubin, Total 0.5 mg/dL (0.2-1.0); Total Protein 7.6 g/dL (6.4-8.2)
[2018-01-04] MEDS ORDERED: KETOROLAC TROMETH 60MG/2ML VIAL IM ONE (04:30)
[2018-01-04 04:47] VITALS: BP 113/61
== END 2018-01-04 05:56 | disposition home or self-care (01) ==
LOC: ER 01:10
DX: N39.0 Urinary tract infection, site not specified (principal); N20.1 Calculus of ureter; Z79.899 Other long term (current) drug therapy
CPT/HCPCS: 36415; 74176; 80053; 80307; 81001; 82150; 83690; 85025; 96372; 99285; J1885

== ENCOUNTER → 2018-01-26 | Day surgery (SDC) | payer MEDICAID ==
[2018-01-22 13:49] LABS: Basophils # (auto) 0 uL; Basophils % (auto) 0.2 % (0.0-2.0); Eosinophils # (auto) 0.1 uL; Hematocrit 39.2 % (41.0-53.0); Lymphocytes # (auto) 0.8 uL; Mean Corpuscular Hemoglobin 29.1 pg (28.0-32.0); Mean Corpuscular Hgb Conc. 33.1 g/dL (32.0-36.0); Mean Corpuscular Volume 87.8 fL (80.0-100.0); Monocytes # (auto) 0.4 uL; Monocytes % (auto) 7.4 % (0.0-12.0); Neutrophils # (auto) 4.5 uL; Neutrophils % (auto) 77.4 % (37.0-80.0); Nucleated Red Blood Cells % 0.1 %; Platelet Count (auto) 241 10^3/uL (140-450); Red Blood Cells 4.46 10^6/uL (4.5-5.90); Red Cell Distribution Width 13.2 % (11.8-14.3); White Blood Cell 5.8 10^3/uL (4.4-10.8)
[2018-01-22 13:55] LABS: Urine Bacteria MOD /hpf (None Seen); Urine Blood 2+ /uL (Negative); Urine Mucus FEW (None Seen); Urine WBC 309 /hpf (0 - 3); Urine WBC Clumps PRESENT /hpf (None Seen)
[2018-01-22 14:11] LABS: INR 0.93 (0.9-1.15); Partial Thromboplastin Time 24.3 sec (23.78-33.04)
[2018-01-22 14:17] LABS: Potassium 3.8 mmol/L (3.5-5.1)
[2018-01-22 14:54] LABS: Albumin 3.3 g/dL (3.4-5.0); BUN/Creatinine Ratio 7.2; Calcium 8.3 mg/dL (8.5-10.1); Total Protein 7.4 g/dL (6.4-8.2)
[~2018-01-26] VITALS: Ht 193 cm; Wt 71.2 kg
[~2018-01-26] MED LIST changes: +DEXAMETHASONE SOD PHOS 10MG/1ML VIAL INJ IV ONE; +HYDROmorphone HCL 2 MG/ML VL IV PRN; +IOHEXOL 300 MG/ML 100ML BOTTLE IJ ONE; +KETOROLAC TROMETH 30 MG/ML 1ML VIAL IV ONE; +LABETALOL HCL 5 MG/ML 4ML SYRINGE IV PRN; +MEPERIDINE HCL (50 MG/ML) 1 ML VIAL ONE; +MIDAZOLAM HCL 1MG/1ML-2 ML VIAL IV PRN; +MIDAZOLAM HCL 1MG/1ML-2 ML VIAL ONE; +MORPHINE SULFATE 4 MG/ML SYR/VIAL IV ONE; +ONDANSETRON HCL 4 MG/2 ML VIAL IV ONE; +PHENYLEPHRINE HCL 10 MG/ML VL IV ONE; +PROPOFOL 10 MG/ML 20 ML IV ONE; +ceFAZolin 1GM/50ML 50 ML IV ONE; +ePHEDrine SULFATE 50 MG/ML AMP IV PRN; +fentaNYL CITRATE 100 MCG/2 ML VL ONE
[2018-01-26 16:14] VITALS: BP 123/75
== END | disposition home or self-care (01) ==
LOC: SUR 10:11
PROVIDERS: ATTEND Urology
DX: N20.1 Calculus of ureter (principal); N20.0 Calculus of kidney; N13.30 Unspecified hydronephrosis; J18.9 Pneumonia, unspecified organism; E11.9 Type 2 diabetes mellitus without complications; I25.2 Old myocardial infarction; F32.9 Major depressive disorder, single episode, unspecified; F41.9 Anxiety disorder, unspecified; Z46.6 Encounter for fitting and adjustment of urinary device; Z85.46 Personal history of malignant neoplasm of prostate; Z80.0 Family history of malignant neoplasm of digestive organs; Z79.1 Long term (current) use of non-steroidal anti-inflammatories (NSAID); Z93.6 Other artificial openings of urinary tract status; Z93.3 Colostomy status; Z79.899 Other long term (current) drug therapy
CPT/HCPCS: 50590; 52332; C1769; C2617; J2175; J2370; J3010; J7030; Q9967; 36415; 74018; 80053; 81001; 85025; 85610; 85730; J0690; J1100; J2250; J2704

== ENCOUNTER 2018-02-19 04:07 | Emergency (ER) | payer MEDICAID ==
[~2018-02-19] VITALS: Ht 188 cm; Wt 71.7 kg
[~2018-02-19 04:07] MED LIST changes: -DEXAMETHASONE SOD PHOS 10MG/1ML VIAL INJ IV ONE; -HYDROmorphone HCL 2 MG/ML VL IV PRN; -IOHEXOL 300 MG/ML 100ML BOTTLE IJ ONE; -KETOROLAC TROMETH 30 MG/ML 1ML VIAL IV ONE; -LABETALOL HCL 5 MG/ML 4ML SYRINGE IV PRN; -MEPERIDINE HCL (50 MG/ML) 1 ML VIAL ONE; -MIDAZOLAM HCL 1MG/1ML-2 ML VIAL IV PRN; -MIDAZOLAM HCL 1MG/1ML-2 ML VIAL ONE; -MORPHINE SULFATE 4 MG/ML SYR/VIAL IV ONE; -ONDANSETRON HCL 4 MG/2 ML VIAL IV ONE; -PHENYLEPHRINE HCL 10 MG/ML VL IV ONE; -PROPOFOL 10 MG/ML 20 ML IV ONE; -ceFAZolin 1GM/50ML 50 ML IV ONE; -ePHEDrine SULFATE 50 MG/ML AMP IV PRN; -fentaNYL CITRATE 100 MCG/2 ML VL ONE
[2018-02-19 07:18] LABS: Basophils # (auto) 0 uL; Basophils % (auto) 0.3 % (0.0-2.0); Eosinophils # (auto) 0.1 uL; Eosinophils % (auto) 4.1 % (0.0-7.0); Hematocrit 38.8 % (41.0-53.0); Hemoglobin 12.3 g/dL (13.5-17.5); Lymphocytes # (auto) 1.1 uL; Lymphocytes % (auto) 32.6 % (10.0-50.0); Mean Corpuscular Hemoglobin 28.8 pg (28.0-32.0); Mean Corpuscular Hgb Conc. 31.7 g/dL (32.0-36.0); Mean Corpuscular Volume 90.9 fL (80.0-100.0); Monocytes # (auto) 0.3 uL; Monocytes % (auto) 7.7 % (0.0-12.0); Neutrophils # (auto) 1.8 uL; Neutrophils % (auto) 55.3 % (37.0-80.0); Nucleated Red Blood Cells % 0.1 %; Platelet Count (auto) 203 10^3/uL (140-450); Red Blood Cells 4.27 10^6/uL (4.5-5.90); Red Cell Distribution Width 14.4 % (11.8-14.3); White Blood Cell 3.3 10^3/uL (4.4-10.8)
[2018-02-19 07:43] LABS: Albumin 3.9 g/dL (3.4-5.0); BUN/Creatinine Ratio 10.5; Calcium 8.8 mg/dL (8.5-10.1); Potassium 3.2 mmol/L (3.5-5.1)
[2018-02-19 07:51] LABS: Bilirubin, Total 0.4 mg/dL (0.2-1.0); Total Protein 7.9 g/dL (6.4-8.2)
[2018-02-19 08:03] LABS: Urine Bacteria MANY /hpf (None Seen); Urine Blood 2+ /uL (Negative); Urine Mucus FEW (None Seen); Urine Specific Gravity 1.019 (1.001-1.035); Urine WBC 2887 /hpf (0 - 3); Urine WBC Clumps PRESENT /hpf (None Seen)
[2018-02-19] MEDS ORDERED: cefTRIAXone SOD 1,000 MG VL IM ONE (08:45)
[2018-02-19 09:00] VITALS: BP 113/61
[2018-02-19] MEDS ORDERED: CIPROFLOXACIN HCL 500 MG TAB PO ONE (09:00)
== END 2018-02-19 11:07 | disposition left against medical advice (07) ==
LOC: ER 04:07
DX: N39.0 Urinary tract infection, site not specified (principal); Z87.442 Personal history of urinary calculi; Z85.038 Personal history of other malignant neoplasm of large intestine
CPT/HCPCS: 36415; 80053; 81001; 85025; J0696

== ENCOUNTER 2018-03-11 23:32 | Emergency (ER) | payer MEDICAID ==
[~2018-03-11] VITALS: Ht 188 cm; Wt 68.9 kg
[2018-03-12 00:07] VITALS: BP 114/84
== END 2018-03-12 07:21 | disposition left against medical advice (07) ==
LOC: ER 23:39
DX: R10.9 Unspecified abdominal pain (principal); Z53.21 Procedure and treatment not carried out due to patient leaving prior to being seen by health care provider
CPT/HCPCS: 74176

== ENCOUNTER 2018-03-22 22:49 | Emergency (ER) | payer MEDICAID, OTHER ==
[~2018-03-22] VITALS: Ht 188 cm; Wt 72.1 kg
[2018-03-23 00:34] LABS: Basophils # (auto) 0 uL; Basophils % (auto) 0.6 % (0.0-2.0); Eosinophils # (auto) 0.2 uL; Eosinophils % (auto) 5.6 % (0.0-7.0); Hematocrit 44.2 % (41.0-53.0); Hemoglobin 13.8 g/dL (13.5-17.5); Lymphocytes # (auto) 0.9 uL; Lymphocytes % (auto) 23.9 % (10.0-50.0); Mean Corpuscular Hemoglobin 29.1 pg (28.0-32.0); Mean Corpuscular Hgb Conc. 31.1 g/dL (32.0-36.0); Mean Corpuscular Volume 93.4 fL (80.0-100.0); Monocytes # (auto) 0.2 uL; Monocytes % (auto) 5.9 % (0.0-12.0); Neutrophils # (auto) 2.3 uL; Platelet Count (auto) 192 10^3/uL (140-450); Red Blood Cells 4.73 10^6/uL (4.5-5.90); Red Cell Distribution Width 14.2 % (11.8-14.3); White Blood Cell 3.6 10^3/uL (4.4-10.8)
[2018-03-23 00:43] LABS: Albumin 3.4 g/dL (3.4-5.0); Calcium 8.7 mg/dL (8.5-10.1); Potassium 3.6 mmol/L (3.5-5.1)
[2018-03-23 00:46] LABS: Bilirubin, Total 0.4 mg/dL (0.2-1.0); Total Protein 7.1 g/dL (6.4-8.2)
[2018-03-23 03:00] LABS: Urine Bacteria MANY /hpf (None Seen); Urine Blood 2+ /uL (Negative); Urine Mucus FEW (None Seen); Urine WBC 1175 /hpf (0 - 3); Urine WBC Clumps PRESENT /hpf (None Seen)
[2018-03-23] MEDS ORDERED: cefTRIAXone 1GM/50ML D5W 50 ML IV ONE (04:00)
[2018-03-23 04:57] VITALS: BP 107/72
== END 2018-03-23 04:45 | disposition home or self-care (01) ==
LOC: ER 22:51
DX: N39.0 Urinary tract infection, site not specified (principal); R10.84 Generalized abdominal pain; Z79.891 Long term (current) use of opiate analgesic; Z79.899 Other long term (current) drug therapy
CPT/HCPCS: 36415; 74176; 80053; 81001; 85025; 96365; 99284; J0696

== ENCOUNTER 2018-05-30 04:19 | Emergency (ER) | payer MEDICAID ==
[~2018-05-30] VITALS: Ht 188 cm; Wt 70.3 kg
[2018-05-30 12:24] VITALS: BP 137/95
== END 2018-05-30 14:26 | disposition home or self-care (01) ==
LOC: ER 04:19
DX: G89.4 Chronic pain syndrome (principal); D48.1 Neoplasm of uncertain behavior of connective and other soft tissue; F11.20 Opioid dependence, uncomplicated; Z76.5 Malingerer [conscious simulation]; Z87.442 Personal history of urinary calculi

== ENCOUNTER 2018-07-06 04:33 | Emergency (ER) | payer MEDICAID ==
[~2018-07-06] VITALS: Ht 188 cm; Wt 69.9 kg
[2018-07-06 04:58] VITALS: BP 110/81
[2018-07-06 05:58] LABS: Urine Bacteria MANY /hpf (None Seen); Urine Blood 3+ /uL (Negative); Urine Mucus FEW (None Seen); Urine Specific Gravity 1.018 (1.001-1.035); Urine WBC 2095 /hpf (0 - 3)
[2018-07-06] MEDS ORDERED: cefTRIAXone SOD 1,000 MG VL IM ONE (08:15)
[2018-07-06 08:24] LABS: Basophils # (auto) 0 uL; Basophils % (auto) 0.4 % (0.0-2.0); Eosinophils # (auto) 0.1 uL; Eosinophils % (auto) 3.2 % (0.0-7.0); Hematocrit 41.9 % (41.0-53.0); Hemoglobin 13.6 g/dL (13.5-17.5); Lymphocytes % (auto) 22.6 % (10.0-50.0); Mean Corpuscular Hemoglobin 29.1 pg (28.0-32.0); Mean Corpuscular Hgb Conc. 32.3 g/dL (32.0-36.0); Mean Corpuscular Volume 90.1 fL (80.0-100.0); Monocytes # (auto) 0.2 uL; Monocytes % (auto) 5.7 % (0.0-12.0); Neutrophils # (auto) 2.9 uL; Neutrophils % (auto) 68.1 % (37.0-80.0); Nucleated Red Blood Cells % 0.1 %; Platelet Count (auto) 220 10^3/uL (140-450); Red Blood Cells 4.65 10^6/uL (4.5-5.90); Red Cell Distribution Width 13.1 % (11.8-14.3); White Blood Cell 4.3 10^3/uL (4.4-10.8)
[2018-07-06] MEDS ORDERED: LIDOCAINE 2% (LOCAL ANESTH.) PF 5ml SDV ONE (08:30)
[2018-07-06 08:45] LABS: Calcium 8.8 mg/dL (8.5-10.1); Magnesium 2.3 mg/dL (1.6-2.6); Potassium 3.6 mmol/L (3.5-5.1)
[2018-07-06] MEDS ORDERED: LIDOCAINE HCL (LOCAL ANESTH.) 0.5 % 50ML MDV IJ ONE (08:45)
[2018-07-06 08:51] LABS: Albumin 3.7 g/dL (3.4-5.0); BUN/Creatinine Ratio 13.1; Bilirubin, Total 0.4 mg/dL (0.2-1.0); Total Protein 7.7 g/dL (6.4-8.2)
== END 2018-07-06 08:52 | disposition home or self-care (01) ==
LOC: ER 04:33
DX: N39.0 Urinary tract infection, site not specified (principal); F41.9 Anxiety disorder, unspecified; Z87.442 Personal history of urinary calculi; Z79.899 Other long term (current) drug therapy
CPT/HCPCS: 36415; 74176; 80053; 81001; 82150; 83690; 83735; 85025; 99284; J0696; J2001

== ENCOUNTER 2018-09-30 13:33 | Emergency (ER) | payer MEDICAID ==
[~2018-09-30] VITALS: Ht 188 cm; Wt 70.3 kg
[2018-09-30 14:15] LABS: Urine Bacteria NONE SEEN /hpf (None Seen); Urine Blood 2+ /uL (Negative); Urine Hyaline Cast FEW /lpf (0 - 2); Urine Mucus FEW (None Seen); Urine Specific Gravity 1.017 (1.001-1.035); Urine WBC 191 /hpf (0 - 3)
[2018-09-30 14:27] LABS: Basophils # (auto) 0 uL; Basophils % (auto) 0.6 % (0.0-2.0); Eosinophils # (auto) 0.2 uL; Eosinophils % (auto) 4.6 % (0.0-7.0); Hematocrit 38.4 % (41.0-53.0); Hemoglobin 12.3 g/dL (13.5-17.5); Lymphocytes # (auto) 0.9 uL; Lymphocytes % (auto) 24.9 % (10.0-50.0); Mean Corpuscular Hemoglobin 28.9 pg (28.0-32.0); Mean Corpuscular Hgb Conc. 31.9 g/dL (32.0-36.0); Mean Corpuscular Volume 90.6 fL (80.0-100.0); Monocytes # (auto) 0.2 uL; Monocytes % (auto) 6.6 % (0.0-12.0); Neutrophils # (auto) 2.2 uL; Neutrophils % (auto) 63.3 % (37.0-80.0); Nucleated Red Blood Cells % 0.1 %; Platelet Count (auto) 232 10^3/uL (140-450); Red Blood Cells 4.24 10^6/uL (4.5-5.90); Red Cell Distribution Width 12.8 % (11.8-14.3); White Blood Cell 3.5 10^3/uL (4.4-10.8)
[2018-09-30 14:38] LABS: Albumin 3.4 g/dL (3.4-5.0); Calcium 8.9 mg/dL (8.5-10.1); Potassium 3.6 mmol/L (3.5-5.1)
[2018-09-30 14:41] LABS: BUN/Creatinine Ratio 11.6; Bilirubin, Total 0.2 mg/dL (0.2-1.0); Total Protein 6.8 g/dL (6.4-8.2)
[2018-09-30] MEDS ORDERED: MORPHINE SULFATE 4 MG/ML SYR/VIAL IV ONE (22:00)
[2018-09-30] MEDS ORDERED: ONDANSETRON HCL 4 MG/2 ML VIAL IV ONE (22:00)
[2018-09-30] MEDS ORDERED: SODIUM CHLORIDE 0.9% 1,000 ML IV ONE (22:15)
[2018-10-01] MEDS ORDERED: cefTRIAXone 1GM/50ML D5W 50 ML IV ONE (01:15)
[2018-10-01 01:54] VITALS: BP 107/67
== END 2018-10-01 02:02 | disposition home or self-care (01) ==
LOC: ER 13:41
DX: N20.0 Calculus of kidney (principal); N39.0 Urinary tract infection, site not specified; C79.9 Secondary malignant neoplasm of unspecified site; N04.9 Nephrotic syndrome with unspecified morphologic changes
CPT/HCPCS: 36415; 74176; 80053; 81001; 83690; 85025; 96365; 96375; 99284; J0696; J2270; J2405; J7030

== ENCOUNTER 2018-10-04 00:01 | Emergency (ER) | payer MEDICAID ==
[~2018-10-04] VITALS: Ht 188 cm; Wt 70.8 kg
[2018-10-04 00:14] VITALS: BP 130/81
== END 2018-10-04 05:28 | disposition left against medical advice (07) ==
LOC: ER 00:01
DX: R10.9 Unspecified abdominal pain (principal); Z53.21 Procedure and treatment not carried out due to patient leaving prior to being seen by health care provider

== ENCOUNTER 2018-10-05 23:55 | Emergency (ER) | payer MEDICAID ==
[~2018-10-05] VITALS: Ht 188 cm; Wt 70.8 kg
[2018-10-06 01:11] LABS: Basophils # (auto) 0 uL; Basophils % (auto) 0.6 % (0.0-2.0); Eosinophils # (auto) 0.2 uL; Eosinophils % (auto) 4.3 % (0.0-7.0); Hematocrit 41.7 % (41.0-53.0); Hemoglobin 13.4 g/dL (13.5-17.5); Lymphocytes # (auto) 1.1 uL; Lymphocytes % (auto) 26.6 % (10.0-50.0); Mean Corpuscular Hemoglobin 29.4 pg (28.0-32.0); Mean Corpuscular Hgb Conc. 32.3 g/dL (32.0-36.0); Mean Corpuscular Volume 91.1 fL (80.0-100.0); Monocytes # (auto) 0.3 uL; Monocytes % (auto) 5.9 % (0.0-12.0); Neutrophils # (auto) 2.7 uL; Neutrophils % (auto) 62.6 % (37.0-80.0); Platelet Count (auto) 249 10^3/uL (140-450); Red Blood Cells 4.58 10^6/uL (4.5-5.90); Red Cell Distribution Width 13.1 % (11.8-14.3); White Blood Cell 4.3 10^3/uL (4.4-10.8)
[2018-10-06 01:12] LABS: Urine Bacteria NONE SEEN /hpf (None Seen); Urine Blood Negative /uL (Negative); Urine Mucus FEW (None Seen); Urine Specific Gravity 1.023 (1.001-1.035); Urine WBC 3 /hpf (0 - 3)
[2018-10-06 01:29] LABS: Albumin 3.6 g/dL (3.4-5.0); BUN/Creatinine Ratio 9.9; Calcium 8.5 mg/dL (8.5-10.1); Potassium 3.1 mmol/L (3.5-5.1)
[2018-10-06 01:32] LABS: Bilirubin, Total 0.4 mg/dL (0.2-1.0); Total Protein 7.6 g/dL (6.4-8.2)
[2018-10-06 04:20] VITALS: BP 109/72
== END 2018-10-06 05:31 | disposition home or self-care (01) ==
LOC: ER 23:57
DX: C96.9 Malignant neoplasm of lymphoid, hematopoietic and related tissue, unspecified (principal); C7A.8 Other malignant neuroendocrine tumors; R46.89 Other symptoms and signs involving appearance and behavior; Z79.899 Other long term (current) drug therapy
CPT/HCPCS: 36415; 80053; 81001; 82150; 83690; 85025

== ENCOUNTER 2018-10-08 01:27 | Emergency (ER) | payer MEDICAID ==
[~2018-10-08] VITALS: Ht 188 cm; Wt 71.2 kg
[2018-10-08] MEDS ORDERED: HYDROmorphone HCL 2 MG/ML VL IM ONE (02:30)
[2018-10-08] MEDS ORDERED: ONDANSETRON ODT 4 MG TAB PO ONE (02:30)
[2018-10-08 02:35] LABS: Urine Amorphous Crystal MOD /hpf (None Seen); Urine Bacteria FEW /hpf (None Seen); Urine Blood 2+ /uL (Negative); Urine Mucus FEW (None Seen); Urine Specific Gravity 1.004 (1.001-1.035); Urine WBC 7 /hpf (0 - 3)
[2018-10-08 04:03] VITALS: BP 119/57
== END 2018-10-08 04:34 | disposition home or self-care (01) ==
LOC: ER 01:31
DX: R10.84 Generalized abdominal pain (principal); G89.29 Other chronic pain; R11.0 Nausea; Z79.899 Other long term (current) drug therapy; Z87.442 Personal history of urinary calculi
CPT/HCPCS: 81001; 96372; 99283; J1170; Q0162

== ENCOUNTER 2018-10-08 07:27 | Emergency (ER) | payer MEDICAID ==
[~2018-10-08] VITALS: Ht 188 cm; Wt 70.8 kg
[2018-10-08 08:27] VITALS: BP 129/91
== END 2018-10-08 08:27 | disposition home or self-care (01) ==
LOC: ER 07:29
DX: N39.0 Urinary tract infection, site not specified (principal); Z79.899 Other long term (current) drug therapy; Z87.442 Personal history of urinary calculi
CPT/HCPCS: 81002; 93017

== ENCOUNTER 2018-10-10 00:03 | Emergency (ER) | payer MEDICAID ==
[~2018-10-10] VITALS: Ht 188 cm; Wt 69.9 kg
[2018-10-10 01:51] VITALS: BP 114/77
[2018-10-10] MEDS ORDERED: HYDROcodone-ACET 10/325MG TAB PO ONE (02:00)
[2018-10-10] MEDS ORDERED: ONDANSETRON ODT 4 MG TAB PO ONE (02:00)
== END 2018-10-10 02:19 | disposition home or self-care (01) ==
LOC: ER 00:06
DX: C78.5 Secondary malignant neoplasm of large intestine and rectum (principal); C77.9 Secondary and unspecified malignant neoplasm of lymph node, unspecified; G89.4 Chronic pain syndrome; Z91.19 Patient's noncompliance with other medical treatment and regimen
CPT/HCPCS: 70450; Q0162

== ENCOUNTER 2018-10-14 17:20 | Emergency (ER) | payer MEDICAID ==
[~2018-10-14] VITALS: Ht 188 cm; Wt 71.7 kg
[2018-10-14 17:40] VITALS: BP 114/71
== END 2018-10-14 23:44 | disposition left against medical advice (07) ==
LOC: ER 17:22
DX: R10.12 Left upper quadrant pain (principal); Z53.21 Procedure and treatment not carried out due to patient leaving prior to being seen by health care provider

== ENCOUNTER 2018-10-17 03:03 | Emergency (ER) | payer MEDICAID ==
[~2018-10-17] VITALS: Ht 188 cm; Wt 70.8 kg
[2018-10-17 03:36] VITALS: BP 122/91
== END 2018-10-17 08:09 | disposition left against medical advice (07) ==
LOC: ER 03:04
DX: R10.9 Unspecified abdominal pain (principal); Z53.21 Procedure and treatment not carried out due to patient leaving prior to being seen by health care provider

== ENCOUNTER 2019-02-26 02:09 | Emergency (ER) | payer MEDICAID ==
[~2019-02-26] VITALS: Ht 188 cm; Wt 67.7 kg
[2019-02-26 02:39] LABS: Basophils # (auto) 0 uL; Basophils % (auto) 0.7 % (0.0-2.0); Eosinophils # (auto) 0.2 uL; Eosinophils % (auto) 5.3 % (0.0-7.0); Hematocrit 43.7 % (41.0-53.0); Hemoglobin 14.1 g/dL (13.5-17.5); Lymphocytes # (auto) 1.5 uL; Lymphocytes % (auto) 38.9 % (10.0-50.0); Mean Corpuscular Hgb Conc. 32.3 g/dL (32.0-36.0); Mean Corpuscular Volume 89.7 fL (80.0-100.0); Monocytes # (auto) 0.2 uL; Monocytes % (auto) 6.3 % (0.0-12.0); Neutrophils # (auto) 1.9 uL; Neutrophils % (auto) 48.8 % (37.0-80.0); Platelet Count (auto) 227 10^3/uL (140-450); Red Blood Cells 4.87 10^6/uL (4.5-5.90); Red Cell Distribution Width 13.6 % (11.8-14.3); White Blood Cell 3.9 10^3/uL (4.4-10.8)
[2019-02-26 02:57] LABS: Albumin 3.5 g/dL (3.4-5.0); BUN/Creatinine Ratio 13.4; Calcium 8.7 mg/dL (8.5-10.1); Potassium 3.5 mmol/L (3.5-5.1)
[2019-02-26 03:00] LABS: Bilirubin, Total 0.2 mg/dL (0.2-1.0); Total Protein 7.7 g/dL (6.4-8.2)
[2019-02-26 04:38] LABS: Urine Bacteria MANY /hpf (None Seen); Urine Blood 1+ /uL (Negative); Urine Hyaline Cast MOD /lpf (0 - 2); Urine Mucus FEW (None Seen); Urine WBC 960 /hpf (0 - 3); Urine WBC Clumps PRESENT /hpf (None Seen)
[2019-02-26 05:07] VITALS: BP 115/71
[2019-02-26] MEDS ORDERED: HYDROcodone-ACET 5/325MG TAB PO ONE (05:30)
== END 2019-02-26 06:06 | disposition home or self-care (01) ==
LOC: ER 02:10
DX: N39.0 Urinary tract infection, site not specified (principal); C80.1 Malignant (primary) neoplasm, unspecified
CPT/HCPCS: 36415; 74176; 80053; 81001; 83605; 85025

== ENCOUNTER 2019-05-21 02:22 | Emergency (ER) | payer MEDICAID ==
[~2019-05-21] VITALS: Ht 188 cm; Wt 66.2 kg
[2019-05-21 02:30] VITALS: BP 119/79
[2019-05-21 03:46] LABS: Basophils # (auto) 0 uL; Basophils % (auto) 0.4 % (0.0-2.0); Eosinophils # (auto) 0.1 uL; Eosinophils % (auto) 3.1 % (0.0-7.0); Hemoglobin 13.4 g/dL (13.5-17.5); Lymphocytes # (auto) 1.2 uL; Lymphocytes % (auto) 29.3 % (10.0-50.0); Mean Corpuscular Hemoglobin 28.5 pg (28.0-32.0); Mean Corpuscular Hgb Conc. 32.7 g/dL (32.0-36.0); Mean Corpuscular Volume 87.4 fL (80.0-100.0); Monocytes # (auto) 0.2 uL; Monocytes % (auto) 5.5 % (0.0-12.0); Neutrophils # (auto) 2.5 uL; Neutrophils % (auto) 61.7 % (37.0-80.0); Nucleated Red Blood Cells % 0.1 %; Platelet Count (auto) 348 10^3/uL (140-450); Red Blood Cells 4.69 10^6/uL (4.5-5.90); Red Cell Distribution Width 13.3 % (11.8-14.3); White Blood Cell 4.1 10^3/uL (4.4-10.8)
[2019-05-21 03:53] LABS: Urine Bacteria NONE SEEN /hpf (None Seen); Urine Blood Negative /uL (Negative); Urine Mucus FEW (None Seen); Urine Specific Gravity 1.026 (1.001-1.035); Urine WBC 103 /hpf (0 - 3)
[2019-05-21 04:03] LABS: Albumin 4.1 g/dL (3.4-5.0); Calcium 9.1 mg/dL (8.5-10.1); Potassium 3.3 mmol/L (3.5-5.1)
[2019-05-21 04:09] LABS: BUN/Creatinine Ratio 11.6; Bilirubin, Total 0.4 mg/dL (0.2-1.0); Total Protein 8.1 g/dL (6.4-8.2)
== END 2019-05-21 06:00 | disposition left against medical advice (07) ==
LOC: ER 02:24
DX: R10.9 Unspecified abdominal pain (principal); Z53.21 Procedure and treatment not carried out due to patient leaving prior to being seen by health care provider
CPT/HCPCS: 36415; 80053; 81001; 85025

== ENCOUNTER 2019-06-05 09:53 | Emergency (ER) | payer MEDICAID ==
[~2019-06-05] VITALS: Ht 157.5 cm; Wt 67.1 kg
[~2019-06-05 09:53] MED LIST changes: +LEVO-28 PO
[2019-06-05 11:33] VITALS: BP 109/61
== END 2019-06-05 12:14 | disposition home or self-care (01) ==
LOC: ER 09:53
DX: T83.012A Breakdown (mechanical) of nephrostomy catheter, initial encounter (principal); Z87.442 Personal history of urinary calculi

== ENCOUNTER 2019-07-04 05:37 | Emergency (ER) | payer MEDICAID ==
[~2019-07-04] VITALS: Ht 188 cm; Wt 72.1 kg
[2019-07-04 09:09] VITALS: BP 131/80
== END 2019-07-04 09:27 | disposition left against medical advice (07) ==
LOC: ER 05:40
DX: R10.30 Lower abdominal pain, unspecified (principal); Z53.21 Procedure and treatment not carried out due to patient leaving prior to being seen by health care provider

== ENCOUNTER 2019-09-07 22:59 | Inpatient (IN) | payer MEDICAID ==
[~2019-09-07] VITALS: Ht 188 cm; Wt 76.0 kg
[2019-09-08 00:20] LABS: Basophils # (auto) 0 10 ^3/uL (0-0.2); Basophils % (auto) 0.4 % (0.0-2.0); Eosinophils # (auto) 0.2 10 ^3/uL (0-0.8); Eosinophils % (auto) 3.9 % (0.0-7.0); Hematocrit 36.4 % (41.0-53.0); Hemoglobin 11.8 g/dL (13.5-17.5); Mean Corpuscular Hemoglobin 29.2 pg (28.0-32.0); Mean Corpuscular Hgb Conc. 32.5 g/dL (32.0-36.0); Mean Corpuscular Volume 89.9 fL (80.0-100.0); Monocytes # (auto) 0.3 10 ^3/uL (0-1.3); Monocytes % (auto) 7.4 % (0.0-12.0); Neutrophils # (auto) 3.1 10 ^3/uL (1.6-8.6); Neutrophils % (auto) 66.3 % (37.0-80.0); Nucleated Red Blood Cells % 0.1 %; Platelet Count (auto) 265 10^3/uL (140-450); Red Blood Cells 4.05 10^6/uL (4.5-5.90); Red Cell Distribution Width 12.5 % (11.8-14.3); White Blood Cell 4.6 10^3/uL (4.4-10.8)
[2019-09-08 00:38] LABS: Albumin 3.4 g/dL (3.4-5.0); BUN/Creatinine Ratio 11.3; Calcium 8.6 mg/dL (8.5-10.1); Potassium 3.6 mmol/L (3.5-5.1)
[2019-09-08 00:41] LABS: Bilirubin, Total 0.2 mg/dL (0.2-1.0)
[2019-09-08] MEDS ORDERED: MORPHINE SULFATE 4 MG/ML SYR/VIAL IV ONE (01:00)
[2019-09-08] MEDS ORDERED: ONDANSETRON HCL 4 MG/2 ML VIAL IV ONE (01:00)
[2019-09-08] MEDS ORDERED: HYDROmorphone HCL 2 MG/ML VL IV ONE (02:15)
[2019-09-08] MEDS ORDERED: ACETAMINOPHEN 325 MG TAB PO PRN (06:15)
[2019-09-08] MEDS ORDERED: TEMAZEPAM 15 MG CAP PO PRN (06:15)
[2019-09-08] MEDS ORDERED: ONDANSETRON HCL 4 MG/2 ML VIAL IV PRN (06:15)
[2019-09-08] MEDS ORDERED: HYDROcodone-ACET 5/325MG TAB PO PRN (06:15)
[2019-09-08 06:51] LABS: Urine Bacteria MANY /hpf (None Seen); Urine Blood 3+ /uL (Negative); Urine Hyaline Cast FEW /lpf (0 - 2); Urine Mucus FEW (None Seen); Urine Specific Gravity 1.019 (1.001-1.035); Urine WBC 427 /hpf (0 - 3); Urine WBC Clumps PRESENT /hpf (None Seen)
[2019-09-08 08:30] VITALS: BP 113/74
[2019-09-08] MEDS: MORPHINE SULFATE 4 MG/ML SYR/VIAL IV PRN ×4 (08:57→22:21)
[2019-09-08] MEDS: FAMOTIDINE 20 MG TAB PO SCH ×2 (08:58→21:17)
[2019-09-08] MEDS: cefTRIAXone 1GM/50ML D5W 50 ML IV SCH (08:59)
[2019-09-08] MEDS: SODIUM CHLORIDE 0.9% 1,000 ML IV SCH (11:57)
[2019-09-08 12:00] VITALS: BP 109/65
[2019-09-08] MEDS ORDERED: IOHEXOL 300 MG/ML 100ML BOTTLE IJ ONE (12:15)
[2019-09-08 16:59] VITALS: BP 119/80
[2019-09-08 22:00] VITALS: BP 121/65
[2019-09-09] MEDS: SODIUM CHLORIDE 0.9% 1,000 ML IV SCH (01:49)
[2019-09-09] MEDS: MORPHINE SULFATE 4 MG/ML SYR/VIAL IV PRN ×2 (03:50→09:28)
[2019-09-09 04:58] VITALS: BP 107/57
[2019-09-09 05:47] LABS: Basophils # (auto) 0 10 ^3/uL (0-0.2); Basophils % (auto) 0.5 % (0.0-2.0); Eosinophils # (auto) 0.2 10 ^3/uL (0-0.8); Eosinophils % (auto) 5.5 % (0.0-7.0); Hematocrit 40.3 % (41.0-53.0); Hemoglobin 13.3 g/dL (13.5-17.5); Lymphocytes % (auto) 31.3 % (10.0-50.0); Mean Corpuscular Hemoglobin 29.6 pg (28.0-32.0); Mean Corpuscular Hgb Conc. 32.9 g/dL (32.0-36.0); Monocytes # (auto) 0.2 10 ^3/uL (0-1.3); Monocytes % (auto) 5.5 % (0.0-12.0); Neutrophils # (auto) 1.8 10 ^3/uL (1.6-8.6); Neutrophils % (auto) 57.2 % (37.0-80.0); Nucleated Red Blood Cells % 0.1 %; Platelet Count (auto) 222 10^3/uL (140-450); Red Blood Cells 4.48 10^6/uL (4.5-5.90); Red Cell Distribution Width 12.6 % (11.8-14.3); White Blood Cell 3.2 10^3/uL (4.4-10.8)
[2019-09-09 05:57] LABS: BUN/Creatinine Ratio 8.3; Calcium 8.2 mg/dL (8.5-10.1); Potassium 3.6 mmol/L (3.5-5.1)
[2019-09-09 08:00] VITALS: BP 115/64
[2019-09-09] MEDS: cefTRIAXone 1GM/50ML D5W 50 ML IV SCH (09:12)
[2019-09-09] MEDS: FAMOTIDINE 20 MG TAB PO SCH (09:16)
[2019-09-09 12:00] VITALS: BP 115/75
== END 2019-09-09 13:57 | disposition home or self-care (01) | DRG 466 ==
LOC: ER 22:59 → OVERFLOW 23:00 → EAST 09-08 08:27
PROVIDERS: ADMIT Nurse Practitioner; ATTEND Internal Medicine
PROC: BT121ZZ Fluoroscopy of Left Kidney using Low Osmolar Contrast (ICD-10-PCS; principal; 2019-09-08)
DX: T83.012A Breakdown (mechanical) of nephrostomy catheter, initial encounter (principal); A41.9 Sepsis, unspecified organism; F20.9 Schizophrenia, unspecified; N13.6 Pyonephrosis; N18.3 Chronic kidney disease, stage 3 (moderate); R33.9 Retention of urine, unspecified; Z93.2 Ileostomy status; D48.1 Neoplasm of uncertain behavior of connective and other soft tissue; I12.9 Hypertensive chronic kidney disease with stage 1 through stage 4 chronic kidney disease, or unspecified chronic kidney disease; F41.9 Anxiety disorder, unspecified; Z80.0 Family history of malignant neoplasm of digestive organs; Z82.49 Family history of ischemic heart disease and other diseases of the circulatory system; Z90.49 Acquired absence of other specified parts of digestive tract; Z87.442 Personal history of urinary calculi
CPT/HCPCS: 36415; 50430; 74176; 74425; 80048; 80053; 81001; 82150; 83605; 83690; 85025; 87086; 96374; 96375; G0378; J0696; J2405

== ENCOUNTER 2019-09-22 01:49 | Emergency (ER) | payer MEDICAID ==
[~2019-09-22] VITALS: Ht 188 cm; Wt 70.8 kg
[~2019-09-22 01:49] MED LIST changes: -LEVO-28 PO
[2019-09-22 03:25] LABS: Basophils # (auto) 0 10 ^3/uL (0-0.2); Basophils % (auto) 0.1 % (0.0-2.0); Eosinophils # (auto) 0.1 10 ^3/uL (0-0.8); Eosinophils % (auto) 0.9 % (0.0-7.0); Hematocrit 45.3 % (41.0-53.0); Hemoglobin 14.5 g/dL (13.5-17.5); Lymphocytes # (auto) 0.5 10 ^3/uL (0.4-5.4); Lymphocytes % (auto) 8.8 % (10.0-50.0); Mean Corpuscular Hemoglobin 29.3 pg (28.0-32.0); Mean Corpuscular Hgb Conc. 32.1 g/dL (32.0-36.0); Mean Corpuscular Volume 91.4 fL (80.0-100.0); Monocytes # (auto) 0.2 10 ^3/uL (0-1.3); Monocytes % (auto) 3.9 % (0.0-12.0); Neutrophils # (auto) 5.3 10 ^3/uL (1.6-8.6); Neutrophils % (auto) 86.3 % (37.0-80.0); Platelet Count (auto) 294 10^3/uL (140-450); Red Blood Cells 4.95 10^6/uL (4.5-5.90); Red Cell Distribution Width 13.1 % (11.8-14.3); White Blood Cell 6.1 10^3/uL (4.4-10.8)
[2019-09-22 03:47] LABS: Albumin 4.5 g/dL (3.4-5.0); Calcium 9.5 mg/dL (8.5-10.1); Potassium 3.7 mmol/L (3.5-5.1)
[2019-09-22 03:52] LABS: Bilirubin, Total 0.4 mg/dL (0.2-1.0); Total Protein 8.6 g/dL (6.4-8.2)
[2019-09-22] MEDS ORDERED: PROMETHAZINE HCL 25 MG/ML 1ML IV PRN (08:00)
[2019-09-22] MEDS ORDERED: MORPHINE SULFATE 4 MG/ML SYR/VIAL IV ONE (08:00)
[2019-09-22 08:13] LABS: Magnesium 2.7 mg/dL (1.6-2.6)
[2019-09-22 08:50] LABS: Urine Bacteria FEW /hpf (None Seen); Urine Blood TRACE /uL (Negative); Urine Mucus FEW (None Seen); Urine Specific Gravity 1.035 (1.001-1.035); Urine WBC 14 /hpf (0 - 3)
[2019-09-22 10:35] VITALS: BP 108/69
== END 2019-09-22 11:30 | disposition home or self-care (01) ==
LOC: ER 01:50
DX: D48.1 Neoplasm of uncertain behavior of connective and other soft tissue (principal); N18.3 Chronic kidney disease, stage 3 (moderate); G89.29 Other chronic pain; Z93.6 Other artificial openings of urinary tract status
CPT/HCPCS: 36415; 71046; 74176; 80053; 81001; 83690; 83735; 85025; 96374; 96375; 99285; J2270; J2550

== ENCOUNTER 2019-09-29 00:05 | Emergency (ER) | payer MEDICAID ==
[~2019-09-29] VITALS: Ht 188 cm; Wt 73.9 kg
[2019-09-29 01:09] LABS: Basophils # (auto) 0 10 ^3/uL (0-0.2); Basophils % (auto) 0.5 % (0.0-2.0); Eosinophils # (auto) 0.2 10 ^3/uL (0-0.8); Eosinophils % (auto) 4.2 % (0.0-7.0); Hematocrit 39.4 % (41.0-53.0); Hemoglobin 12.8 g/dL (13.5-17.5); Lymphocytes # (auto) 0.9 10 ^3/uL (0.4-5.4); Lymphocytes % (auto) 25.9 % (10.0-50.0); Mean Corpuscular Hemoglobin 29.5 pg (28.0-32.0); Mean Corpuscular Hgb Conc. 32.5 g/dL (32.0-36.0); Mean Corpuscular Volume 90.7 fL (80.0-100.0); Monocytes # (auto) 0.2 10 ^3/uL (0-1.3); Monocytes % (auto) 6.8 % (0.0-12.0); Neutrophils # (auto) 2.3 10 ^3/uL (1.6-8.6); Neutrophils % (auto) 62.6 % (37.0-80.0); Nucleated Red Blood Cells % 0.1 %; Platelet Count (auto) 211 10^3/uL (140-450); Red Blood Cells 4.35 10^6/uL (4.5-5.90); Red Cell Distribution Width 12.9 % (11.8-14.3); White Blood Cell 3.6 10^3/uL (4.4-10.8)
[2019-09-29 01:13] LABS: Urine Bacteria NONE SEEN /hpf (None Seen); Urine Blood Negative /uL (Negative); Urine Specific Gravity 1.004 (1.001-1.035); Urine WBC 7 /hpf (0 - 3)
[2019-09-29 01:28] LABS: Albumin 3.7 g/dL (3.4-5.0); BUN/Creatinine Ratio 10.8; Calcium 8.7 mg/dL (8.5-10.1); Potassium 3.2 mmol/L (3.5-5.1)
[2019-09-29 01:31] LABS: Bilirubin, Total 0.3 mg/dL (0.2-1.0); Total Protein 7.2 g/dL (6.4-8.2)
[2019-09-29] MEDS ORDERED: POTASSIUM CHL 20 Meq TABLET PO ONE (01:45)
[2019-09-29 02:19] VITALS: BP 129/84
== END 2019-09-29 02:21 | disposition home or self-care (01) ==
LOC: ER 00:05
DX: E87.6 Hypokalemia (principal); N39.0 Urinary tract infection, site not specified; Z87.442 Personal history of urinary calculi
CPT/HCPCS: 36415; 80053; 81001; 83690; 85025

== ENCOUNTER 2019-10-19 21:08 | Emergency (ER) | payer MEDICAID ==
[~2019-10-19] VITALS: Ht 188 cm; Wt 72.1 kg
[2019-10-19 21:30] VITALS: BP 121/84
[2019-10-19 22:52] LABS: Basophils # (auto) 0 10 ^3/uL (0-0.2); Basophils % (auto) 0.3 % (0.0-2.0); Eosinophils # (auto) 0 10 ^3/uL (0-0.8); Hematocrit 42.5 % (41.0-53.0); Hemoglobin 13.8 g/dL (13.5-17.5); Lymphocytes # (auto) 0.6 10 ^3/uL (0.4-5.4); Lymphocytes % (auto) 12.6 % (10.0-50.0); Mean Corpuscular Hemoglobin 29.4 pg (28.0-32.0); Mean Corpuscular Hgb Conc. 32.5 g/dL (32.0-36.0); Mean Corpuscular Volume 90.4 fL (80.0-100.0); Monocytes # (auto) 0.3 10 ^3/uL (0-1.3); Monocytes % (auto) 6.5 % (0.0-12.0); Neutrophils % (auto) 79.6 % (37.0-80.0); Platelet Count (auto) 258 10^3/uL (140-450); Red Cell Distribution Width 12.9 % (11.8-14.3)
[2019-10-19 23:13] LABS: Albumin 4.1 g/dL (3.4-5.0); Calcium 9.1 mg/dL (8.5-10.1); Potassium 3.6 mmol/L (3.5-5.1)
[2019-10-19 23:16] LABS: Bilirubin, Total 0.7 mg/dL (0.2-1.0); Total Protein 8.1 g/dL (6.4-8.2)
== END 2019-10-20 01:00 | disposition left against medical advice (07) ==
LOC: ER 21:08
DX: R10.9 Unspecified abdominal pain (principal); Z53.21 Procedure and treatment not carried out due to patient leaving prior to being seen by health care provider
CPT/HCPCS: 36415; 80053; 85025

== ENCOUNTER 2019-11-17 03:33 | Inpatient (IN) | payer MEDICAID ==
[~2019-11-17] VITALS: Ht 188 cm; Wt 72.6 kg
[2019-11-17 05:45] LABS: Basophils # (auto) 0 10 ^3/uL (0-0.2); Basophils % (auto) 0.7 % (0.0-2.0); Eosinophils # (auto) 0.2 10 ^3/uL (0-0.8); Eosinophils % (auto) 3.8 % (0.0-7.0); Hematocrit 39.9 % (41.0-53.0); Hemoglobin 12.6 g/dL (13.5-17.5); Lymphocytes # (auto) 1.1 10 ^3/uL (0.4-5.4); Lymphocytes % (auto) 26.2 % (10.0-50.0); Mean Corpuscular Hemoglobin 28.5 pg (28.0-32.0); Mean Corpuscular Hgb Conc. 31.5 g/dL (32.0-36.0); Mean Corpuscular Volume 90.6 fL (80.0-100.0); Monocytes # (auto) 0.2 10 ^3/uL (0-1.3); Monocytes % (auto) 5.8 % (0.0-12.0); Neutrophils # (auto) 2.6 10 ^3/uL (1.6-8.6); Neutrophils % (auto) 63.5 % (37.0-80.0); Nucleated Red Blood Cells % 0.3 %; Platelet Count (auto) 216 10^3/uL (140-450); Red Blood Cells 4.41 10^6/uL (4.5-5.90); Red Cell Distribution Width 12.7 % (11.8-14.3)
[2019-11-17 06:03] LABS: Albumin 3.7 g/dL (3.4-5.0); Anion Gap 6 (5-15); Blood Urea Nitrogen 18 mg/dL (7-18); Calcium 8.5 mg/dL (8.5-10.1); Carbon Dioxide 19 mmol/L (21-32); Chloride 112 mmol/L (98-107); Glucose 88 mg/dL (74-106); Potassium 3.6 mmol/L (3.5-5.1); Sodium 137 mmol/L (136-145)
[2019-11-17 06:07] LABS: Alanine Aminotransferase 39 U/L (16-61); Alkaline Phosphatase 101 U/L (45-117); Aspartate Aminotransferase 33 U/L (15-37); BUN/Creatinine Ratio 13.6; Bilirubin, Total 0.2 mg/dL (0.2-1.0); GFR African American 77 mL/min; GFR Non-African American 64 mL/min; Total Protein 7.2 g/dL (6.4-8.2)
[2019-11-17 06:09] LABS: Blood Alcohol < 3.0 mg/dL (0-5)
[2019-11-17] MEDS: cefTRIAXone 1GM/50ML D5W 50 ML IV SCH (06:50)
[2019-11-17] MEDS ORDERED: ONDANSETRON HCL 4 MG/2 ML VIAL IV ONE (10:15)
[2019-11-17] MEDS ORDERED: MORPHINE SULF INJ 2 MG/ML SYRINGE 1ML IV ONE (10:15)
[2019-11-17] MEDS ORDERED: MORP30TA PO (10:28)
[2019-11-17] MEDS ORDERED: ACETAMINOPHEN 500 MG TAB PO PRN (15:45)
[2019-11-17] MEDS ORDERED: hydrALAZINE HCL 20 MG/ML VL IV PRN (15:45)
[2019-11-17] MEDS ORDERED: ONDANSETRON HCL 4 MG/2 ML VIAL IV PRN (15:45)
[2019-11-17] MEDS ORDERED: IOHEXOL 300 MG/ML 100ML BOTTLE IJ ONE (16:00)
[2019-11-17] MEDS ORDERED: LIDOCAINE 2%HCL (LOCAL ANESTH.) INJ 20ML MDV ONE (16:04)
[2019-11-17] MEDS: LACTATED RINGER'S 1,000 ML IV SCH (16:49)
[2019-11-17] MEDS: MORPHINE SULF INJ 2 MG/ML SYRINGE 1ML IV PRN ×2 (18:02→22:45)
[2019-11-17 20:00] VITALS: BP 107/71
[2019-11-17 22:00] VITALS: BP 107/71
[2019-11-18] MEDS: MORPHINE SULF INJ 2 MG/ML SYRINGE 1ML IV PRN ×2 (02:49→06:57)
[2019-11-18 05:00] VITALS: BP 117/71
[2019-11-18] MEDS: LACTATED RINGER'S 1,000 ML IV SCH (05:05)
[2019-11-18 05:48] LABS: Basophils # (auto) 0 10 ^3/uL (0-0.2); Basophils % (auto) 0.7 % (0.0-2.0); Eosinophils # (auto) 0.2 10 ^3/uL (0-0.8); Eosinophils % (auto) 4.3 % (0.0-7.0); Hematocrit 40.5 % (41.0-53.0); Hemoglobin 13.1 g/dL (13.5-17.5); Lymphocytes % (auto) 24.3 % (10.0-50.0); Mean Corpuscular Hgb Conc. 32.3 g/dL (32.0-36.0); Mean Corpuscular Volume 89.7 fL (80.0-100.0); Monocytes # (auto) 0.3 10 ^3/uL (0-1.3); Monocytes % (auto) 6.7 % (0.0-12.0); Neutrophils # (auto) 2.7 10 ^3/uL (1.6-8.6); Platelet Count (auto) 205 10^3/uL (140-450); Red Blood Cells 4.52 10^6/uL (4.5-5.90); White Blood Cell 4.2 10^3/uL (4.4-10.8)
[2019-11-18 06:10] LABS: Potassium 3.5 mmol/L (3.5-5.1)
[2019-11-18 06:17] LABS: BUN/Creatinine Ratio 12.3; Calcium 8.8 mg/dL (8.5-10.1)
[2019-11-18 06:31] LABS: INR 0.99 (0.9-1.15); Partial Thromboplastin Time 24.7 sec (23.0-31.2)
[2019-11-18] MEDS: cefTRIAXone 1GM/50ML D5W 50 ML IV SCH (06:56)
--- NOTE | 2019-11-18 07:30 | NUR ---
RECEIVED PATIENT FROM NOC SHIFT RN, ALERT AND ORIENTED X4. DENIES PAIN AT THIS TIME, NO SOB OR S/S DISTRESS. PLAN OF CARE DISCUSSED. PATIENT VERBALIZED UNDERSTANDING. BED IN LOW AND LOCKED POSITION. ADVISED TO CALL FOR ASSISTANCE PRN. WILL CONTINUE TO MONITOR QIHR AND PRN. OBSERVED PATIENT EMPTYING COLOSTOMY.
[2019-11-18 08:00] VITALS: BP 107/60
[2019-11-18 09:00] VITALS: BP 107/60
[2019-11-18] MEDS ORDERED: FAMOTIDINE 20 MG TAB PO SCH (10:00)
--- NOTE | 2019-11-18 11:40 | NUR ---
WHEN TO GIVE PATIENT PRN PAIN MEDICATION. PATIENT WAS SITTING AT THE EDGE OF BED AND DRESSED WITH SHOES, HAD TAKEN OUT OWN IV ACCESS. I INFORMED PATIENT I BROUGHT HIS PAIN MEDICATION. PATIENT VERBALIZED HE WAS GETTING READY TO LEAVE AND HAD CALLED A FRIEND FOR UTILITY TECH. A RESULT, PAIN MED WASTED AT THIS TIME. PATIENT SIGNED AMA, CHARGE MADE AWARE.
--- NOTE | 2019-11-18 12:19 | NUR ---
Patient left AMA prior to assessment Regarding social service consult for home health for nephrostomy tube care. clinical information was faxed to [facility] and [facility]. Per Myra with Cl patient has been accepted and service to start within 24-48hrs.
== END 2019-11-18 11:40 | disposition left against medical advice (07) | DRG 466 ==
LOC: ER 03:35 → OVERFLOW 03:36 → WEST WING 17:03
PROVIDERS: ADMIT Nurse Practitioner; ATTEND Hospitalist
DX: N99.522 Malfunction of incontinent external stoma of urinary tract (principal); N13.8 Other obstructive and reflux uropathy; N18.3 Chronic kidney disease, stage 3 (moderate); F11.20 Opioid dependence, uncomplicated; D64.9 Anemia, unspecified; Y83.9 Surgical procedure, unspecified as the cause of abnormal reaction of the patient, or of later complication, without mention of misadventure at the time of the procedure; N17.0 Acute kidney failure with tubular necrosis; F41.9 Anxiety disorder, unspecified; Z53.29 Procedure and treatment not carried out because of patient's decision for other reasons; Z82.49 Family history of ischemic heart disease and other diseases of the circulatory system; Z80.0 Family history of malignant neoplasm of digestive organs
CPT/HCPCS: 36415; 74176; 80048; 80053; 80320; 85025; 85610; 85730; 93005; 96365; C1729; G0378; J0696; J2405

== ENCOUNTER 2019-11-24 22:07 | Inpatient (IN) | payer MEDICAID ==
[~2019-11-24] VITALS: Ht 188 cm; Wt 70.1 kg
[~2019-11-24 22:07] MED LIST changes: -ALPR0.25 PO; -CARI-277 PO; +MORP30TA PO; -NOR10T PO
[2019-11-25 00:29] LABS: Basophils # (auto) 0 10 ^3/uL (0-0.2); Basophils % (auto) 0.6 % (0.0-2.0); Eosinophils # (auto) 0.2 10 ^3/uL (0-0.8); Eosinophils % (auto) 5.8 % (0.0-7.0); Hematocrit 41.5 % (41.0-53.0); Hemoglobin 13.2 g/dL (13.5-17.5); Lymphocytes # (auto) 0.9 10 ^3/uL (0.4-5.4); Lymphocytes % (auto) 24.6 % (10.0-50.0); Mean Corpuscular Hgb Conc. 31.8 g/dL (32.0-36.0); Mean Corpuscular Volume 91.2 fL (80.0-100.0); Monocytes # (auto) 0.2 10 ^3/uL (0-1.3); Monocytes % (auto) 5.3 % (0.0-12.0); Neutrophils # (auto) 2.3 10 ^3/uL (1.6-8.6); Neutrophils % (auto) 63.7 % (37.0-80.0); Nucleated Red Blood Cells % 0.1 %; Platelet Count (auto) 209 10^3/uL (140-450); Red Blood Cells 4.55 10^6/uL (4.5-5.90); Red Cell Distribution Width 13.2 % (11.8-14.3); White Blood Cell 3.6 10^3/uL (4.4-10.8)
[2019-11-25 00:49] LABS: BUN/Creatinine Ratio 11.8; Potassium 3.4 mmol/L (3.5-5.1)
[2019-11-25 00:51] LABS: Bilirubin, Total 0.4 mg/dL (0.2-1.0)
[2019-11-25 01:48] LABS: Urine Amorphous Crystal FEW /hpf (None Seen); Urine Bacteria MOD /hpf (None Seen); Urine Blood 2+ /uL (Negative); Urine Mucus FEW (None Seen); Urine Specific Gravity 1.027 (1.001-1.035); Urine WBC 441 /hpf (0 - 3)
[2019-11-25] MEDS ORDERED: cefTRIAXone 1GM/50ML D5W 50 ML IV ONE (02:30)
[2019-11-25] MEDS ORDERED: ACETAMINOPHEN 325 MG TAB PO ONE (02:30)
[2019-11-25] MEDS ORDERED: ONDANSETRON HCL 4 MG/2 ML VIAL IV PRN (02:45)
[2019-11-25] MEDS ORDERED: TEMAZEPAM 15 MG CAP PO PRN (02:45)
[2019-11-25] MEDS ORDERED: ACETAMINOPHEN 325 MG TAB PO PRN ×2 (02:45→16:45)
--- NOTE | 2019-11-25 05:00 | NUR ---
Received pt from the ED.
[2019-11-25] MEDS: HYDROcodone-ACET 5/325MG TAB PO PRN ×2 (05:19→09:20)
[2019-11-25 09:00] VITALS: BP 106/63
[2019-11-25] MEDS: cefTRIAXone 1GM/50ML D5W 50 ML IV SCH (09:20)
[2019-11-25] MEDS: PANTOPRAZOLE 40 MG TAB PO SCH (09:20)
--- NOTE | 2019-11-25 10:49 | NUR ---
COLOSTOMY BAG CHANGED. PT SIGNED CONSENT FOR REPLACEMENT OF NEPHROSTOMY TUBE TOMORROW 11/26/19.
[2019-11-25 13:00] VITALS: BP 107/61
[2019-11-25 15:44] LABS: Basophils # (auto) 0 10 ^3/uL (0-0.2); Basophils % (auto) 0.6 % (0.0-2.0); Eosinophils # (auto) 0.2 10 ^3/uL (0-0.8); Eosinophils % (auto) 5.8 % (0.0-7.0); Hematocrit 39.4 % (41.0-53.0); Hemoglobin 12.5 g/dL (13.5-17.5); Lymphocytes # (auto) 1.3 10 ^3/uL (0.4-5.4); Lymphocytes % (auto) 40.8 % (10.0-50.0); Mean Corpuscular Hemoglobin 28.7 pg (28.0-32.0); Mean Corpuscular Hgb Conc. 31.7 g/dL (32.0-36.0); Mean Corpuscular Volume 90.6 fL (80.0-100.0); Monocytes # (auto) 0.2 10 ^3/uL (0-1.3); Monocytes % (auto) 6.3 % (0.0-12.0); Neutrophils # (auto) 1.5 10 ^3/uL (1.6-8.6); Neutrophils % (auto) 46.5 % (37.0-80.0); Nucleated Red Blood Cells % 0.1 %; Platelet Count (auto) 201 10^3/uL (140-450); Red Blood Cells 4.34 10^6/uL (4.5-5.90); Red Cell Distribution Width 13.2 % (11.8-14.3); White Blood Cell 3.3 10^3/uL (4.4-10.8)
[2019-11-25 15:59] LABS: Partial Thromboplastin Time 24.5 sec (23.0-31.2)
[2019-11-25] MEDS ORDERED: levoFLOXacin 500 MG TAB PO ONE (16:45)
[2019-11-25] MEDS ORDERED: POTASSIUM CHL 20 Meq TABLET PO ONE (16:45)
[2019-11-25] MEDS ORDERED: HYDROcodone-ACET 5/325MG TAB PO PRN (16:45)
[2019-11-25 16:56] VITALS: BP 108/43
[2019-11-25] MEDS: SODIUM CHLORIDE 0.9% 1,000 ML IV SCH (17:09)
--- NOTE | 2019-11-25 19:30 | NUR ---
Opening Shift Note Assumed care of patient, awake and alert. pain med will be given for pain as per patient request. Instructed on POC and to call for assist PRN, will continue to monitor for changes Q1hr and PRN.
[2019-11-25 22:00] VITALS: BP 109/70
[2019-11-26] MEDS: SODIUM CHLORIDE 0.9% 1,000 ML IV SCH ×2 (00:34→08:48)
[2019-11-26 05:00] VITALS: BP 114/67
[2019-11-26 06:43] LABS: Basophils # (auto) 0 10 ^3/uL (0-0.2); Basophils % (auto) 0.7 % (0.0-2.0); Eosinophils # (auto) 0.1 10 ^3/uL (0-0.8); Eosinophils % (auto) 4.9 % (0.0-7.0); Hematocrit 38.1 % (41.0-53.0); Hemoglobin 12.2 g/dL (13.5-17.5); Lymphocytes % (auto) 37.7 % (10.0-50.0); Mean Corpuscular Hgb Conc. 32.1 g/dL (32.0-36.0); Mean Corpuscular Volume 90.3 fL (80.0-100.0); Monocytes # (auto) 0.1 10 ^3/uL (0-1.3); Monocytes % (auto) 5.4 % (0.0-12.0); Neutrophils # (auto) 1.4 10 ^3/uL (1.6-8.6); Neutrophils % (auto) 51.3 % (37.0-80.0); Nucleated Red Blood Cells % 0.1 %; Platelet Count (auto) 181 10^3/uL (140-450); Red Blood Cells 4.21 10^6/uL (4.5-5.90); White Blood Cell 2.7 10^3/uL (4.4-10.8)
[2019-11-26 07:07] LABS: Calcium 8.1 mg/dL (8.5-10.1); Potassium 3.8 mmol/L (3.5-5.1)
[2019-11-26 07:09] LABS: BUN/Creatinine Ratio 9.6
--- NOTE | 2019-11-26 08:40 | NUR ---
Colostomy bag changed.
[2019-11-26 09:00] VITALS: BP 102/71
[2019-11-26] MEDS: cefTRIAXone 1GM/50ML D5W 50 ML IV SCH (09:29)
[2019-11-26] MEDS: PANTOPRAZOLE 40 MG TAB PO SCH (10:00)
[2019-11-26] MEDS ORDERED: POTASSIUM CHL 10 Meq TABLET PO SCH (10:00)
--- NOTE | 2019-11-26 10:00 | NUR ---
Pt left to director of laboratory operations.
[2019-11-26] MEDS ORDERED: diphenhdrAMINE HCL 50 MG/1 ML VL ONE (10:55)
[2019-11-26] MEDS ORDERED: fentaNYL CITRATE 100 MCG/2 ML VL ONE (10:55)
[2019-11-26] MEDS ORDERED: LIDOCAINE 2%HCL (LOCAL ANESTH.) INJ 20ML MDV ONE (10:56)
[2019-11-26] MEDS ORDERED: MIDAZOLAM HCL 1MG/1ML-2 ML VIAL ONE (10:56)
[2019-11-26] MEDS ORDERED: IODIXANOL 320MG/ML 100ML BTL IV ONE (10:56)
[2019-11-26] MEDS ORDERED: ONDANSETRON HCL 4 MG/2 ML VIAL ONE (11:19)
--- NOTE | 2019-11-26 12:49 | NUR ---
Patient came back from laboratory tech, awake , alert, oriented x 4 and verbally responsive. No respiratory distress noted. Skin is warm and dry to touch. Denied any pain at this time. Will continue to monitor.
[2019-11-26 13:00] VITALS: BP 137/71
--- NOTE | 2019-11-26 13:45 | NUR ---
DISTRICT LOSS PREVENTION MANAGER informed me patient was not in the room, IV removed by the patient. Patient eloped, CN (Manjinder) and Dr. Caroline Patel Notified.
== END 2019-11-26 14:00 | disposition left against medical advice (07) | DRG 466 ==
LOC: ER 22:10 → OVERFLOW 22:11 → TELE-CENTR 11-25 04:45 → CENTRAL 11-25 11:34
PROVIDERS: ADMIT Nurse Practitioner; ATTEND Internal Medicine
PROC: 0TJ53ZZ Inspection of Kidney, Percutaneous Approach (ICD-10-PCS; principal; 2019-11-26)
PROC: BT1F1ZZ Fluoroscopy of Left Kidney, Ureter and Bladder using Low Osmolar Contrast (ICD-10-PCS; 2019-11-26)
PROC: BT42ZZZ Ultrasonography of Left Kidney (ICD-10-PCS; 2019-11-26)
DX: T83.022A Displacement of nephrostomy catheter, initial encounter (principal); G89.29 Other chronic pain; E87.6 Hypokalemia; N18.9 Chronic kidney disease, unspecified; N17.9 Acute kidney failure, unspecified; Y83.8 Other surgical procedures as the cause of abnormal reaction of the patient, or of later complication, without mention of misadventure at the time of the procedure; I12.9 Hypertensive chronic kidney disease with stage 1 through stage 4 chronic kidney disease, or unspecified chronic kidney disease; N13.6 Pyonephrosis; F41.9 Anxiety disorder, unspecified; Z80.0 Family history of malignant neoplasm of digestive organs; Z82.49 Family history of ischemic heart disease and other diseases of the circulatory system; Z85.038 Personal history of other malignant neoplasm of large intestine; Z87.442 Personal history of urinary calculi; Z93.3 Colostomy status; Y92.89 Other specified places as the place of occurrence of the external cause; Z53.29 Procedure and treatment not carried out because of patient's decision for other reasons
CPT/HCPCS: 36415; 50432; 74176; 76775; 76942; 80048; 80053; 81001; 82150; 83605; 83690; 85025; 85610; 85730; 86850; 86900; 86901; 87040; 87086; 87088; 87186; 99152; C2625; G0378; J0696; J2250; J2405; Q9967

== ENCOUNTER 2019-11-29 18:13 | Emergency (ER) | payer MEDICAID ==
[~2019-11-29] VITALS: Ht 188 cm; Wt 72.1 kg
[2019-11-30] MEDS ORDERED: LIDOCAINE 1% HCL (LOCAL ANESTH.) INJ 20ML MDV IJ ONE (01:00)
[2019-11-30] MEDS ORDERED: cefTRIAXone SOD 1,000 MG VL IM ONE (01:00)
[2019-11-30 02:00] VITALS: BP 102/68
[2019-11-30 02:31] LABS: Basophils # (auto) 0 10 ^3/uL (0-0.2); Basophils % (auto) 0.3 % (0.0-2.0); Eosinophils # (auto) 0.1 10 ^3/uL (0-0.8); Eosinophils % (auto) 4.3 % (0.0-7.0); Hematocrit 37.2 % (41.0-53.0); Hemoglobin 12.1 g/dL (13.5-17.5); Lymphocytes # (auto) 1.2 10 ^3/uL (0.4-5.4); Lymphocytes % (auto) 36.9 % (10.0-50.0); Mean Corpuscular Hemoglobin 29.4 pg (28.0-32.0); Mean Corpuscular Hgb Conc. 32.5 g/dL (32.0-36.0); Mean Corpuscular Volume 90.7 fL (80.0-100.0); Monocytes # (auto) 0.2 10 ^3/uL (0-1.3); Monocytes % (auto) 5.5 % (0.0-12.0); Neutrophils # (auto) 1.7 10 ^3/uL (1.6-8.6); Nucleated Red Blood Cells % 0.2 %; Platelet Count (auto) 224 10^3/uL (140-450); Red Blood Cells 4.11 10^6/uL (4.5-5.90); Red Cell Distribution Width 13.1 % (11.8-14.3); White Blood Cell 3.3 10^3/uL (4.4-10.8)
[2019-11-30 02:54] LABS: Albumin 3.4 g/dL (3.4-5.0); BUN/Creatinine Ratio 9.8; Calcium 8.5 mg/dL (8.5-10.1); Potassium 3.5 mmol/L (3.5-5.1)
[2019-11-30 02:57] LABS: Bilirubin, Total 0.4 mg/dL (0.2-1.0); Total Protein 6.6 g/dL (6.4-8.2)
== END 2019-11-30 02:31 | disposition home or self-care (01) ==
LOC: ER 18:16
DX: N99.522 Malfunction of incontinent external stoma of urinary tract (principal); R10.9 Unspecified abdominal pain; N13.9 Obstructive and reflux uropathy, unspecified; Z87.442 Personal history of urinary calculi
CPT/HCPCS: 36415; 80053; 85025; 96372; 99283; J0696; J2001; J7030

== ENCOUNTER 2020-05-28 00:22 | Inpatient (IN) | payer MEDICAID ==
[~2020-05-28] VITALS: Ht 185.4 cm; Wt 77.0 kg
[~2020-05-28 00:22] MED LIST changes: +ALPR2TAB2 PO; +CARI350T22 PO; +HYDR-531 PO; +MORP1SOL9 PO; -MORP30TA PO; +OXYC-902 PO; +TRAM50TA2 PO
[2020-05-28 08:31] LABS: Basophils # (auto) 0 10 ^3/uL (0-0.2); Basophils % (auto) 0.4 % (0.0-2.0); Eosinophils # (auto) 0 10 ^3/uL (0-0.8); Eosinophils % (auto) 0.3 % (0.0-7.0); Hematocrit 38.3 % (41.0-53.0); Hemoglobin 12.5 g/dL (13.5-17.5); Lymphocytes # (auto) 0.2 10 ^3/uL (0.4-5.4); Lymphocytes % (auto) 5.6 % (10.0-50.0); Mean Corpuscular Hemoglobin 28.8 pg (28.0-32.0); Mean Corpuscular Hgb Conc. 32.6 g/dL (32.0-36.0); Mean Corpuscular Volume 88.4 fL (80.0-100.0); Monocytes # (auto) 0.5 10 ^3/uL (0-1.3); Monocytes % (auto) 11.9 % (0.0-12.0); Neutrophils # (auto) 3.1 10 ^3/uL (1.6-8.6); Neutrophils % (auto) 81.8 % (37.0-80.0); Red Blood Cells 4.33 10^6/uL (4.5-5.90); White Blood Cell 3.8 10^3/uL (4.4-10.8)
[2020-05-28 08:43] LABS: Chloride 110 mmol/L (98-107); Potassium 3.5 mmol/L (3.5-5.1); Sodium 141 mmol/L (136-145)
[2020-05-28 08:49] LABS: Alanine Aminotransferase 25 U/L (16-61); Albumin 3.6 g/dL (3.4-5.0); Amylase 141 U/L (25-115); Anion Gap 10 (5-15); Aspartate Aminotransferase 23 U/L (15-37); BUN/Creatinine Ratio 11.3; Blood Urea Nitrogen 15 mg/dL (7-18); Calcium 8.8 mg/dL (8.5-10.1); Carbon Dioxide 21 mmol/L (21-32); GFR African American 76 mL/min; GFR Non-African American 63 mL/min; Glucose 79 mg/dL (74-106); Lipase 137 U/L (73-393)
[2020-05-28 08:55] LABS: Alkaline Phosphatase 90 U/L (45-117); Bilirubin, Total 0.4 mg/dL (0.2-1.0); Total Protein 7.1 g/dL (6.4-8.2)
[2020-05-28 08:56] LABS: INR 0.99 (0.9-1.15); Partial Thromboplastin Time 25.4 sec (23.0-31.2)
[2020-05-28] MEDS ORDERED: LORazepam 2MG/ML-1ML VIAL IV ONE (11:00)
[2020-05-28] MEDS ORDERED: LORazepam 2MG/ML-1ML VIAL IV PRN (11:00)
[2020-05-28] MEDS ORDERED: PROMETHAZINE HCL 25 MG/ML 1ML IV PRN (11:00)
[2020-05-28] MEDS ORDERED: NITROGLYCERIN 0.4 MG SL TAB SL PRN (11:00)
[2020-05-28] MEDS: SODIUM CHLORIDE 0.9% 1,000 ML IV SCH ×2 (12:08→21:48)
[2020-05-28] MEDS: MORPHINE SULFATE 4 MG/ML SYR/VIAL IV PRN (12:08)
[2020-05-28] MEDS: QUEtiapine FUMARATE 25 MG TAB PO SCH (21:59)
[2020-05-29] MEDS: MORPHINE SULFATE 4 MG/ML SYR/VIAL IV PRN ×4 (00:33→20:02)
[2020-05-29 01:18] VITALS: BP 115/79
[2020-05-29] MEDS ORDERED: MORP1CAP31 PO (01:42)
[2020-05-29] MEDS ORDERED: D5W/LACTATED RINGERS 1,000 ML IV SCH (06:00)
[2020-05-29 07:49] LABS: Hemoglobin 11.6 g/dL (13.5-17.5)
[2020-05-29 07:53] LABS: Hematocrit 34.9 % (41.0-53.0); Mean Corpuscular Hemoglobin 29.6 pg (28.0-32.0); Mean Corpuscular Hgb Conc. 33.4 g/dL (32.0-36.0); Mean Corpuscular Volume 88.7 fL (80.0-100.0); Red Blood Cells 3.93 10^6/uL (4.5-5.90); Red Cell Distribution Width 12.6 % (11.8-14.3)
[2020-05-29 08:07] LABS: % Iron Saturation 19.5 % (20-55); Calcium 7.9 mg/dL (8.5-10.1); Potassium 3.2 mmol/L (3.5-5.1)
[2020-05-29 08:12] LABS: Bilirubin, Total 0.5 mg/dL (0.2-1.0); Total Protein 6.2 g/dL (6.4-8.2)
[2020-05-29 08:22] LABS: Band Neutrophils % (manual) 0; Basophils % (manual) 0 (0.0-2.0); Blast Cells 0; Eosinophils % (manual) 0 (0-7); Metamyelocytes % 0; Myelocytes % 0; Promyelocytes % 0; Reactive Lymphocytes 0; White Blood Cell 1.6 10^3/uL (4.4-10.8)
[2020-05-29 08:48] VITALS: BP 100/60
[2020-05-29] MEDS: QUEtiapine FUMARATE 25 MG TAB PO SCH ×2 (08:48→21:32)
[2020-05-29] MEDS: SODIUM CHLORIDE 0.9% 1,000 ML IV SCH (08:48)
[2020-05-29 09:05] LABS: Lymphocytes % (manual) 30 (10.0-50.0); Monocytes % (manual) 12 (0-12)
[2020-05-29 10:00] LABS: Ferritin 222.9 ng/mL (10-322)
[2020-05-29 10:01] LABS: Carcinoembryonic Antigen < 0.50 ng/mL (<5.0 OR =); Folate (Folic Acid) 18.44 ng/mL (5.38-24)
[2020-05-29 13:00] VITALS: BP 109/69
[2020-05-29] MEDS ORDERED: LIDOCAINE 2%HCL (LOCAL ANESTH.) INJ 20ML MDV ONE ×2 (13:43→14:11)
[2020-05-29] MEDS ORDERED: IOHEXOL 300 MG/ML 100ML BOTTLE IJ ONE (14:11)
[2020-05-29] MEDS ORDERED: KETAMINE HCL 10 ML ONE (14:17)
[2020-05-29] MEDS ORDERED: MIDAZOLAM HCL 2MG/2ML 2ml VIAL (1mg/ml) ONE (14:17)
[2020-05-29] MEDS ORDERED: GLYCOPYRROLATE 0.2 MG/ML 1ML VIAL ONE (14:18)
[2020-05-29] MEDS ORDERED: PROPOFOL 10 MG/ML 20 ML IV ONE (14:18)
[2020-05-29] MEDS ORDERED: LIDOCAINE 2% (LOCAL ANESTH.) PF 5ml SDV ONE (14:18)
[2020-05-29] MEDS ORDERED: ONDANSETRON HCL 4 MG/2 ML VIAL ONE (14:18)
[2020-05-29 14:21] LABS: Hepatitis A Ab IgM Negative; Hepatitis B Core IgM Negative; Hepatitis B Surface Antigen Negative (Negative); Hepatitis C Antibody Negative (Negative)
[2020-05-29] MEDS ORDERED: MIDAZOLAM HCL 2MG/2ML 2ml VIAL (1mg/ml) IV ONE (14:40)
[2020-05-29] MEDS ORDERED: HYDROmorphone HCL 2 MG/ML VL IV PRN (16:45)
[2020-05-29] MEDS ORDERED: ONDANSETRON HCL 4 MG/2 ML VIAL IV PRN (16:45)
[2020-05-29 17:00] VITALS: BP 125/89
[2020-05-29] MEDS: ACETAMINOPHEN 325 MG TAB PO PRN (21:42)
[2020-05-29 22:00] VITALS: BP 115/55
[2020-05-30] MEDS: ACETAMINOPHEN 325 MG TAB PO PRN (03:58)
[2020-05-30 05:00] VITALS: BP 99/48
[2020-05-30 07:36] LABS: BUN/Creatinine Ratio 7.9; Calcium 7.7 mg/dL (8.5-10.1)
[2020-05-30 07:41] LABS: INR 1.07 (0.9-1.15); Partial Thromboplastin Time 31.6 sec (23.0-31.2)
[2020-05-30 07:42] LABS: Hematocrit 35.3 % (41.0-53.0); Hemoglobin 11.8 g/dL (13.5-17.5); Mean Corpuscular Hemoglobin 29.4 pg (28.0-32.0); Mean Corpuscular Hgb Conc. 33.6 g/dL (32.0-36.0); Mean Corpuscular Volume 87.5 fL (80.0-100.0); Red Blood Cells 4.03 10^6/uL (4.5-5.90); Red Cell Distribution Width 12.5 % (11.8-14.3); White Blood Cell 4.2 10^3/uL (4.4-10.8)
[2020-05-30 07:51] LABS: Basophils % (manual) 0 (0.0-2.0); Blast Cells 0; Eosinophils % (manual) 0 (0-7); Myelocytes % 0; Promyelocytes % 0; Reactive Lymphocytes 0
[2020-05-30 08:22] VITALS: BP 89/53
[2020-05-30 10:13] LABS: Band Neutrophils % (manual) 12; Lymphocytes % (manual) 1 (10.0-50.0); Metamyelocytes % 2; Monocytes % (manual) 2 (0-12)
== END 2020-05-30 08:15 | disposition left against medical advice (07) | DRG 951 ==
LOC: ER 00:22 → TELE 00:23 → TELE-WESTW 23:40 → WEST WING 05-29 11:15
PROVIDERS: ADMIT Hospitalist; ATTEND Hospitalist
PROC: BT121ZZ Fluoroscopy of Left Kidney using Low Osmolar Contrast (ICD-10-PCS; 2020-05-29)
PROC: 0KCG0ZZ Extirpation of Matter from Left Trunk Muscle, Open Approach (ICD-10-PCS; 2020-05-29)
PROC: 0T25X0Z Change Drainage Device in Kidney, External Approach (ICD-10-PCS; principal; 2020-05-29 14:40)
DX: T83.012A Breakdown (mechanical) of nephrostomy catheter, initial encounter (principal); N13.8 Other obstructive and reflux uropathy; Z20.822 Contact with and (suspected) exposure to COVID-19; Z53.29 Procedure and treatment not carried out because of patient's decision for other reasons; K21.9 Gastro-esophageal reflux disease without esophagitis; F41.9 Anxiety disorder, unspecified; N18.31 Chronic kidney disease, stage 3a; Y73.2 Prosthetic and other implants, materials and accessory gastroenterology and urology devices associated with adverse incidents; G89.4 Chronic pain syndrome; R19.09 Other intra-abdominal and pelvic swelling, mass and lump; N39.0 Urinary tract infection, site not specified; D48.1 Neoplasm of uncertain behavior of connective and other soft tissue; I12.9 Hypertensive chronic kidney disease with stage 1 through stage 4 chronic kidney disease, or unspecified chronic kidney disease; R64 Cachexia; D72.819 Decreased white blood cell count, unspecified; K42.9 Umbilical hernia without obstruction or gangrene; E86.0 Dehydration; E87.6 Hypokalemia; K29.70 Gastritis, unspecified, without bleeding; F11.20 Opioid dependence, uncomplicated; Z93.1 Gastrostomy status; Z91.19 Patient's noncompliance with other medical treatment and regimen; Z93.3 Colostomy status; Z87.442 Personal history of urinary calculi; Z82.49 Family history of ischemic heart disease and other diseases of the circulatory system; Z80.0 Family history of malignant neoplasm of digestive organs; Z90.49 Acquired absence of other specified parts of digestive tract; Z87.440 Personal history of urinary (tract) infections; Z76.5 Malingerer [conscious simulation]; Z87.19 Personal history of other diseases of the digestive system; Z93.2 Ileostomy status; Z79.899 Other long term (current) drug therapy; Z68.20 Body mass index [BMI] 20.0-20.9, adult
CPT/HCPCS: 36415; 50435; 74176; 74425; 76000; 76942; 80048; 80053; 80074; 80320; 82105; 82150; 82378; 82607; 82728; 82746; 83540; 83550; 83605; 83615; 83690; 83735; 84154; 84484; 85007; 85025; 85027; 85610; 85652; 85730; 86301; 86703; 86850; 86900; 86901; 87040; 87426; 96361; 96374; 96375; G0378; J2001; J2250; J2405; J2704

== ENCOUNTER 2020-07-30 00:53 | Emergency (ER) | payer MEDICAID ==
[~2020-07-30] VITALS: Ht 188 cm; Wt 68.0 kg
[~2020-07-30 00:53] MED LIST changes: +MORP1CAP31 PO; -MORP1SOL9 PO; +MORP20SO17 PO
[2020-07-30 05:06] LABS: Basophils # (auto) 0 10 ^3/uL (0-0.2); Basophils % (auto) 0.5 % (0.0-2.0); Eosinophils # (auto) 0.2 10 ^3/uL (0-0.8); Eosinophils % (auto) 3.9 % (0.0-7.0); Hematocrit 36.7 % (41.0-53.0); Hemoglobin 12.4 g/dL (13.5-17.5); Lymphocytes # (auto) 0.9 10 ^3/uL (0.4-5.4); Lymphocytes % (auto) 21.6 % (10.0-50.0); Mean Corpuscular Hemoglobin 30.5 pg (28.0-32.0); Mean Corpuscular Hgb Conc. 33.8 g/dL (32.0-36.0); Mean Corpuscular Volume 90.2 fL (80.0-100.0); Monocytes # (auto) 0.3 10 ^3/uL (0-1.3); Monocytes % (auto) 6.8 % (0.0-12.0); Neutrophils # (auto) 2.9 10 ^3/uL (1.6-8.6); Neutrophils % (auto) 67.2 % (37.0-80.0); Nucleated Red Blood Cells % 0.1 %; Platelet Count (auto) 217 10^3/uL (140-450); Red Blood Cells 4.07 10^6/uL (4.5-5.90); Red Cell Distribution Width 13.6 % (11.8-14.3); White Blood Cell 4.3 10^3/uL (4.4-10.8)
[2020-07-30] MEDS ORDERED: fentaNYL CITRATE 100 MCG/2 ML VL IV ONE (05:15)
[2020-07-30] MEDS ORDERED: ONDANSETRON HCL 4 MG/2 ML VIAL IV ONE (05:15)
[2020-07-30 05:25] LABS: Albumin 3.5 g/dL (3.4-5.0); BUN/Creatinine Ratio 13.4; Calcium 8.7 mg/dL (8.5-10.1); Potassium 3.3 mmol/L (3.5-5.1)
[2020-07-30 05:29] LABS: Bilirubin, Total 0.4 mg/dL (0.2-1.0); Total Protein 6.8 g/dL (6.4-8.2)
[2020-07-30] MEDS ORDERED: IOHEXOL 300 MG/ML 100ML BOTTLE IJ ONE (05:52)
[2020-07-30] MEDS ORDERED: HYDROmorphone HCL 2 MG/ML VL IV ONE (07:00)
[2020-07-30] MEDS ORDERED: POTASSIUM EFFERVESENT TAB 25 MEQ PO ONE (08:45)
[2020-07-30] MEDS ORDERED: cefTRIAXone 1GM/50ML D5W 50 ML IV ONE (12:15)
[2020-07-30 13:21] VITALS: BP 114/65
== END 2020-07-30 13:49 | disposition short-term general hospital (02) ==
LOC: ER 00:53
DX: N99.522 Malfunction of incontinent external stoma of urinary tract (principal); Z87.442 Personal history of urinary calculi; Z87.440 Personal history of urinary (tract) infections
CPT/HCPCS: 36415; 74177; 80053; 85025; 87426; 96365; 96375; 99285; J0696; J1170; J2405; J3010; Q9967

== ENCOUNTER 2020-10-01 06:45 | Emergency (ER) | payer MEDICAID ==
[~2020-10-01] VITALS: Ht 188 cm; Wt 70.8 kg
[~2020-10-01 06:45] MED LIST changes: -ALPR2TAB2 PO; -MORP20SO17 PO; -OXYC-902 PO
[2020-10-01 06:48] VITALS: BP 104/80
== END 2020-10-01 11:22 | disposition left against medical advice (07) ==
LOC: ER 06:45
DX: R10.84 Generalized abdominal pain (principal); Z53.21 Procedure and treatment not carried out due to patient leaving prior to being seen by health care provider

== ENCOUNTER 2020-10-24 01:07 | Emergency (ER) | payer MEDICAID ==
[~2020-10-24] VITALS: Ht 188 cm; Wt 69.9 kg
[2020-10-24 01:08] VITALS: BP 134/94
== END 2020-10-24 03:54 | disposition left against medical advice (07) ==
LOC: ER 01:09
DX: R10.9 Unspecified abdominal pain (principal); Z53.21 Procedure and treatment not carried out due to patient leaving prior to being seen by health care provider

== ENCOUNTER 2020-12-05 22:55 | Emergency (ER) | payer MEDICAID ==
[~2020-12-05] VITALS: Ht 188 cm; Wt 67.6 kg
[2020-12-05 23:00] VITALS: BP 121/88
[2020-12-06 01:23] LABS: Basophils # (auto) 0 10 ^3/uL (0-0.2); Basophils % (auto) 0.6 % (0.0-2.0); Eosinophils # (auto) 0.2 10 ^3/uL (0-0.8); Eosinophils % (auto) 4.3 % (0.0-7.0); Hematocrit 42.5 % (41.0-53.0); Lymphocytes # (auto) 1.5 10 ^3/uL (0.4-5.4); Lymphocytes % (auto) 31.1 % (10.0-50.0); Mean Corpuscular Hemoglobin 29.4 pg (28.0-32.0); Mean Corpuscular Volume 89.1 fL (80.0-100.0); Monocytes # (auto) 0.3 10 ^3/uL (0-1.3); Monocytes % (auto) 7.1 % (0.0-12.0); Neutrophils # (auto) 2.7 10 ^3/uL (1.6-8.6); Neutrophils % (auto) 56.9 % (37.0-80.0); Nucleated Red Blood Cells % 0.1 %; Red Blood Cells 4.78 10^6/uL (4.5-5.90); Red Cell Distribution Width 12.9 % (11.8-14.3); White Blood Cell 4.8 10^3/uL (4.4-10.8)
[2020-12-06 01:50] LABS: Albumin 3.7 g/dL (3.4-5.0); BUN/Creatinine Ratio 14.9; Bilirubin, Total 0.4 mg/dL (0.2-1.0); Calcium 9.1 mg/dL (8.5-10.1); Total Protein 7.9 g/dL (6.4-8.2)
[2020-12-06] MEDS ORDERED: MORPHINE SULFATE 10 MG/ML INJ 1ML SDV IM ONE (02:45)
== END 2020-12-06 07:06 | disposition left against medical advice (07) ==
LOC: ER 22:55
DX: N99.522 Malfunction of incontinent external stoma of urinary tract (principal); R10.13 Epigastric pain; R11.0 Nausea; Z79.899 Other long term (current) drug therapy; Z86.2 Personal history of diseases of the blood and blood-forming organs and certain disorders involving the immune mechanism; N18.9 Chronic kidney disease, unspecified; Z87.440 Personal history of urinary (tract) infections; Z87.442 Personal history of urinary calculi
CPT/HCPCS: 36415; 74176; 80053; 83605; 83690; 85025; 99284; J2270

== ENCOUNTER 2021-05-24 03:28 | Emergency (ER) | payer MEDICAID ==
[~2021-05-24] VITALS: Ht 188 cm; Wt 71.7 kg
[~2021-05-24 03:28] MED LIST changes: -CIPR500T4 PO
[2021-05-24 04:42] LABS: Basophils # (auto) 0 10 ^3/uL (0-0.2); Basophils % (auto) 0.8 % (0.0-2.0); Eosinophils # (auto) 0.1 10 ^3/uL (0-0.8); Eosinophils % (auto) 3.4 % (0.0-7.0); Hematocrit 38.8 % (41.0-53.0); Hemoglobin 12.9 g/dL (13.5-17.5); Lymphocytes # (auto) 1.1 10 ^3/uL (0.4-5.4); Lymphocytes % (auto) 30.2 % (10.0-50.0); Mean Corpuscular Hemoglobin 29.1 pg (28.0-32.0); Mean Corpuscular Hgb Conc. 33.1 g/dL (32.0-36.0); Mean Corpuscular Volume 87.8 fL (80.0-100.0); Monocytes # (auto) 0.3 10 ^3/uL (0-1.3); Monocytes % (auto) 7.6 % (0.0-12.0); Neutrophils # (auto) 2.1 10 ^3/uL (1.6-8.6); Nucleated Red Blood Cells % 0.1 %; Red Blood Cells 4.42 10^6/uL (4.5-5.90); Red Cell Distribution Width 12.7 % (11.8-14.3); White Blood Cell 3.5 10^3/uL (4.4-10.8)
[2021-05-24 04:43] LABS: Urine Bacteria NONE SEEN /hpf (None Seen); Urine Blood 3+ /uL (Negative); Urine Specific Gravity 1.016 (1.001-1.035); Urine WBC 15 /hpf (0 - 3)
[2021-05-24 04:50] LABS: Potassium 3.4 mmol/L (3.5-5.1)
[2021-05-24 04:51] LABS: Albumin 3.8 g/dL (3.4-5.0); Calcium 8.9 mg/dL (8.5-10.1)
[2021-05-24 04:55] LABS: BUN/Creatinine Ratio 11.9; Bilirubin, Total 0.3 mg/dL (0.2-1.0); Total Protein 7.3 g/dL (6.4-8.2)
[2021-05-24] MEDS ORDERED: POTASSIUM EFFERVESENT TAB 25 MEQ PO ONE (07:15)
[2021-05-24 08:09] VITALS: BP 119/70
[2021-05-24] MEDS ORDERED: CIPROFLOXACIN HCL 500 MG TAB PO ONE (09:00)
[2021-05-24] MEDS ORDERED: CIPR500T4 PO (09:32)
== END 2021-05-24 10:10 | disposition left against medical advice (07) ==
LOC: ER 03:30
DX: N39.0 Urinary tract infection, site not specified (principal); Z87.442 Personal history of urinary calculi
CPT/HCPCS: 36415; 74176; 80053; 81001; 83690; 85025

== ENCOUNTER → 2021-05-24 | Emergency (ER) | payer MEDICAID ==
[~2021-05-24] MED LIST changes: +CIPR500T4 PO
== END | disposition left against medical advice (07) ==
LOC: ER 03:34
DX: R10.9 Unspecified abdominal pain (principal); Z53.21 Procedure and treatment not carried out due to patient leaving prior to being seen by health care provider

== ENCOUNTER 2021-10-21 01:51 | Emergency (ER) | payer MEDICAID ==
[~2021-10-21] VITALS: Ht 188 cm; Wt 72.6 kg
[~2021-10-21 01:51] MED LIST changes: +CIPR500T4 PO
[2021-10-21 03:51] LABS: Basophils # (auto) 0 10 ^3/uL (0-0.2); Basophils % (auto) 0.7 % (0.0-2.0); Eosinophils # (auto) 0 10 ^3/uL (0-0.8); Eosinophils % (auto) 0.7 % (0.0-7.0); Hematocrit 39.4 % (41.0-53.0); Hemoglobin 12.9 g/dL (13.5-17.5); Lymphocytes # (auto) 0.9 10 ^3/uL (0.4-5.4); Lymphocytes % (auto) 22.2 % (10.0-50.0); Mean Corpuscular Hemoglobin 29.1 pg (28.0-32.0); Mean Corpuscular Hgb Conc. 32.7 g/dL (32.0-36.0); Monocytes # (auto) 0.3 10 ^3/uL (0-1.3); Monocytes % (auto) 7.5 % (0.0-12.0); Neutrophils # (auto) 2.8 10 ^3/uL (1.6-8.6); Neutrophils % (auto) 68.9 % (37.0-80.0); Red Blood Cells 4.43 10^6/uL (4.5-5.90); Red Cell Distribution Width 12.9 % (11.8-14.3)
[2021-10-21 03:55] LABS: BUN/Creatinine Ratio 8.7; Calcium 8.7 mg/dL (8.5-10.1); Potassium 3.3 mmol/L (3.5-5.1)
[2021-10-21 03:58] LABS: Bilirubin, Total 0.5 mg/dL (0.2-1.0); Total Protein 7.3 g/dL (6.4-8.2)
[2021-10-21 08:23] VITALS: BP 112/74
[2021-10-21] MEDS ORDERED: POTASSIUM EFFERVESENT TAB 25 MEQ PO ONE (09:00)
== END 2021-10-21 13:49 | disposition left against medical advice (07) ==
LOC: ER 01:51
DX: R10.33 Periumbilical pain (principal); E87.6 Hypokalemia; N18.9 Chronic kidney disease, unspecified; Z86.2 Personal history of diseases of the blood and blood-forming organs and certain disorders involving the immune mechanism; Z79.2 Long term (current) use of antibiotics; Z79.899 Other long term (current) drug therapy
CPT/HCPCS: 36415; 74176; 80053; 83690; 85025

== ENCOUNTER 2022-09-06 00:45 | Inpatient (IN) | payer MEDICAID ==
[~2022-09-06] VITALS: Ht 182.9 cm; Wt 78.7 kg
[~2022-09-06 00:45] MED LIST changes: -CARI350T22 PO; +CARI350T27 PO; -MORP1CAP31 PO; +MORP30CA31 PO
[2022-09-06 01:52] LABS: Urine Bacteria NONE SEEN /hpf (None Seen); Urine Blood 3+ /uL (Negative); Urine Specific Gravity 1.013 (1.001-1.035); Urine WBC 9 /hpf (0 - 3)
[2022-09-06 02:36] LABS: Basophils # (auto) 0 10 ^3/uL (0-0.2); Basophils % (auto) 0.5 % (0.0-2.0); Eosinophils # (auto) 0.2 10 ^3/uL (0-0.8); Eosinophils % (auto) 3.7 % (0.0-7.0); Hematocrit 37.3 % (41.0-53.0); Hemoglobin 12.4 g/dL (13.5-17.5); Lymphocytes # (auto) 0.9 10 ^3/uL (0.4-5.4); Lymphocytes % (auto) 17.3 % (10.0-50.0); Mean Corpuscular Hemoglobin 29.1 pg (28.0-32.0); Mean Corpuscular Hgb Conc. 33.3 g/dL (32.0-36.0); Mean Corpuscular Volume 87.5 fL (80.0-100.0); Monocytes # (auto) 0.4 10 ^3/uL (0-1.3); Monocytes % (auto) 7.2 % (0.0-12.0); Neutrophils # (auto) 3.6 10 ^3/uL (1.6-8.6); Neutrophils % (auto) 71.3 % (37.0-80.0); Red Blood Cells 4.27 10^6/uL (4.5-5.90); Red Cell Distribution Width 12.9 % (11.8-14.3)
[2022-09-06 02:40] LABS: Albumin 3.7 g/dL (3.4-5.0); Calcium 8.9 mg/dL (8.5-10.1); Potassium 3.1 mmol/L (3.5-5.1)
[2022-09-06 02:42] LABS: BUN/Creatinine Ratio 8.5 (10.0-20.0)
[2022-09-06 02:54] LABS: Bilirubin, Total 0.6 mg/dL (0.2-1.0); Total Protein 7.5 g/dL (6.4-8.2)
[2022-09-06] MEDS ORDERED: DOCUSATE SOD 100 MG CAP PO PRN (09:15)
[2022-09-06] MEDS ORDERED: ONDANSETRON HCL 4 MG/2 ML VIAL IV PRN (09:15)
[2022-09-06] MEDS: SODIUM CHLORIDE 0.9% 1,000 ML IV SCH ×3 (09:40→21:13)
[2022-09-06] MEDS: MORPHINE SULFATE INJ 2 MG/ml SYRG IV PRN ×3 (09:43→21:10)
[2022-09-06] MEDS: levoFLOXacin 500MG 100 ML IV SCH (10:10)
[2022-09-06 16:00] VITALS: BP 114/68
[2022-09-06 16:20] VITALS: BP 114/68
[2022-09-06 16:25] VITALS: BP 114/68
[2022-09-06 21:30] VITALS: BP 106/63
[2022-09-07] MEDS: MORPHINE SULFATE INJ 2 MG/ml SYRG IV PRN ×4 (01:13→23:21)
[2022-09-07 05:00] VITALS: BP 93/56
[2022-09-07 06:24] LABS: Basophils # (auto) 0 10 ^3/uL (0-0.2); Basophils % (auto) 0.6 % (0.0-2.0); Eosinophils # (auto) 0.2 10 ^3/uL (0-0.8); Eosinophils % (auto) 7.3 % (0.0-7.0); Hematocrit 34.9 % (41.0-53.0); Hemoglobin 11.4 g/dL (13.5-17.5); Lymphocytes % (auto) 34.5 % (10.0-50.0); Mean Corpuscular Hemoglobin 28.9 pg (28.0-32.0); Mean Corpuscular Hgb Conc. 32.8 g/dL (32.0-36.0); Mean Corpuscular Volume 88.2 fL (80.0-100.0); Monocytes # (auto) 0.2 10 ^3/uL (0-1.3); Monocytes % (auto) 7.2 % (0.0-12.0); Neutrophils # (auto) 1.5 10 ^3/uL (1.6-8.6); Neutrophils % (auto) 50.4 % (37.0-80.0); Nucleated Red Blood Cells % 0.2 %; Red Blood Cells 3.96 10^6/uL (4.5-5.90)
[2022-09-07 06:25] LABS: Albumin 2.8 g/dL (3.4-5.0); Bilirubin, Total 0.6 mg/dL (0.2-1.0); Calcium 7.7 mg/dL (8.5-10.1); Total Protein 5.5 g/dL (6.4-8.2)
[2022-09-07 08:01] VITALS: BP 102/56
[2022-09-07 08:31] VITALS: BP 102/56
[2022-09-07] MEDS: levoFLOXacin 500MG 100 ML IV SCH (10:14)
[2022-09-07] MEDS: SODIUM CHLORIDE 0.9% 1,000 ML IV SCH ×3 (11:18→23:22)
[2022-09-07 13:00] VITALS: BP 96/58
[2022-09-07] MEDS: HYDROcodone-ACET 10/325MG TAB PO PRN (15:20)
[2022-09-07 17:00] VITALS: BP 101/67
[2022-09-07 22:00] VITALS: BP 96/56
[2022-09-08 05:00] VITALS: BP 106/66
[2022-09-08] MEDS: MORPHINE SULFATE INJ 2 MG/ml SYRG IV PRN ×2 (05:50→20:12)
[2022-09-08 08:00] VITALS: BP 100/52
[2022-09-08] MEDS: levoFLOXacin 500MG 100 ML IV SCH (09:44)
[2022-09-08 10:16] VITALS: BP 100/52
[2022-09-08] MEDS: HYDROcodone-ACET 10/325MG TAB PO PRN (10:26)
[2022-09-08 13:00] VITALS: BP 110/67
[2022-09-08] MEDS: SODIUM CHLORIDE 0.9% 1,000 ML IV SCH ×2 (15:04→16:23)
[2022-09-08 16:41] VITALS: BP 93/51
[2022-09-08 22:00] VITALS: BP 115/68
[2022-09-09] MEDS: SODIUM CHLORIDE 0.9% 1,000 ML IV SCH ×3 (01:17→20:35)
[2022-09-09] MEDS: MORPHINE SULFATE INJ 2 MG/ml SYRG IV PRN ×5 (01:18→21:06)
[2022-09-09 05:00] VITALS: BP 114/68
[2022-09-09 08:00] VITALS: BP 108/69
[2022-09-09] MEDS: levoFLOXacin 500MG 100 ML IV SCH (09:20)
[2022-09-09 11:54] VITALS: BP 117/63
[2022-09-09 16:00] VITALS: BP 102/57
[2022-09-09 22:00] VITALS: BP 105/67
[2022-09-10] MEDS: MORPHINE SULFATE INJ 2 MG/ml SYRG IV PRN ×6 (01:10→23:44)
[2022-09-10 05:00] VITALS: BP 94/58
[2022-09-10] MEDS: SODIUM CHLORIDE 0.9% 1,000 ML IV SCH ×3 (05:25→21:35)
[2022-09-10 08:00] VITALS: BP 111/64
[2022-09-10] MEDS: cefTRIAXone 1GM/50ML D5W 50 ML IV SCH (09:54)
[2022-09-10 12:00] VITALS: BP 102/58
[2022-09-10] MEDS ORDERED: FUROSEMIDE 40 MG/4 ML VIAL IV ONE (13:15)
[2022-09-10 16:00] VITALS: BP 119/78
[2022-09-10 22:00] VITALS: BP 100/62
[2022-09-11] MEDS: MORPHINE SULFATE INJ 2 MG/ml SYRG IV PRN ×3 (04:43→13:33)
[2022-09-11 05:00] VITALS: BP 124/78
[2022-09-11] MEDS: SODIUM CHLORIDE 0.9% 1,000 ML IV SCH ×2 (05:25→09:27)
[2022-09-11 08:00] VITALS: BP 106/55
[2022-09-11 09:00] VITALS: BP 106/55
[2022-09-11] MEDS: cefTRIAXone 1GM/50ML D5W 50 ML IV SCH (09:21)
[2022-09-11 13:00] VITALS: BP 107/65
[2022-09-11 14:28] VITALS: BP 99/61
[2022-09-11] MEDS ORDERED: HYDR-4902 PO ×2 (16:31)
== END 2022-09-11 17:00 | disposition left against medical advice (07) | DRG 466 ==
LOC: ER 00:45 → OVERFLOW 09:07 → EAST 16:23
PROVIDERS: ADMIT Nurse Practitioner Family; ATTEND Internal Medicine
DX: T83.022A Displacement of nephrostomy catheter, initial encounter (principal); N17.9 Acute kidney failure, unspecified; N13.6 Pyonephrosis; E87.1 Hypo-osmolality and hyponatremia; N13.8 Other obstructive and reflux uropathy; D64.9 Anemia, unspecified; D48.1 Neoplasm of uncertain behavior of connective and other soft tissue; E87.6 Hypokalemia; Y73.2 Prosthetic and other implants, materials and accessory gastroenterology and urology devices associated with adverse incidents; N18.30 Chronic kidney disease, stage 3 unspecified; F11.20 Opioid dependence, uncomplicated; G89.29 Other chronic pain; Z93.3 Colostomy status; Z85.89 Personal history of malignant neoplasm of other organs and systems; Y92.89 Other specified places as the place of occurrence of the external cause; Z82.49 Family history of ischemic heart disease and other diseases of the circulatory system; Z80.0 Family history of malignant neoplasm of digestive organs; Z87.442 Personal history of urinary calculi; Z91.199 Patient's noncompliance with other medical treatment and regimen due to unspecified reason; Z90.49 Acquired absence of other specified parts of digestive tract; Z76.5 Malingerer [conscious simulation]; Z93.1 Gastrostomy status; Z93.2 Ileostomy status
CPT/HCPCS: 36415; 74176; 76775; 78707; 80053; 81001; 83690; 85025; 87086; 96365; 96375; G0378; J0696; J1956; J2405

== ENCOUNTER 2022-09-27 02:20 | Inpatient (IN) | payer MEDICAID ==
[~2022-09-27] VITALS: Ht 193 cm; Wt 84.4 kg
[2022-09-27 03:46] LABS: Urine Bacteria NONE SEEN /hpf (None Seen); Urine Blood 3+ /uL (Negative); Urine WBC 15 /hpf (0 - 3)
[2022-09-27 03:56] LABS: Urine Specific Gravity 1.025 (1.001-1.035)
[2022-09-27 04:01] LABS: Basophils # (auto) 0 10 ^3/uL (0-0.2); Basophils % (auto) 0.7 % (0.0-2.0); Eosinophils # (auto) 0.2 10 ^3/uL (0-0.8); Eosinophils % (auto) 4.6 % (0.0-7.0); Hematocrit 36.5 % (41.0-53.0); Hemoglobin 11.9 g/dL (13.5-17.5); Lymphocytes # (auto) 1.2 10 ^3/uL (0.4-5.4); Lymphocytes % (auto) 24.9 % (10.0-50.0); Mean Corpuscular Hemoglobin 28.4 pg (28.0-32.0); Mean Corpuscular Hgb Conc. 32.6 g/dL (32.0-36.0); Mean Corpuscular Volume 87.1 fL (80.0-100.0); Monocytes # (auto) 0.3 10 ^3/uL (0-1.3); Monocytes % (auto) 5.9 % (0.0-12.0); Neutrophils # (auto) 3.1 10 ^3/uL (1.6-8.6); Neutrophils % (auto) 63.9 % (37.0-80.0); Nucleated Red Blood Cells % 0.1 %; Red Blood Cells 4.19 10^6/uL (4.5-5.90); Red Cell Distribution Width 13.4 % (11.8-14.3); White Blood Cell 4.9 10^3/uL (4.4-10.8)
[2022-09-27 04:26] LABS: Albumin 3.6 g/dL (3.4-5.0); Calcium 8.4 mg/dL (8.5-10.1); Potassium 3.3 mmol/L (3.5-5.1)
[2022-09-27 04:32] LABS: BUN/Creatinine Ratio 13.6 (10.0-20.0); Bilirubin, Total 0.6 mg/dL (0.2-1.0); Total Protein 6.8 g/dL (6.4-8.2)
[2022-09-27] MEDS ORDERED: ACETAMINOPHEN 500 MG TAB PO ONE (04:45)
[2022-09-27] MEDS ORDERED: PIPERACILLIN-TAZOB 3.375GM 100 ML IV ONE (06:00)
[2022-09-27] MEDS ORDERED: DOCUSATE SOD 100 MG CAP PO PRN (09:00)
[2022-09-27] MEDS ORDERED: ONDANSETRON HCL 4 MG/2 ML VIAL IV PRN (09:00)
[2022-09-27] MEDS ORDERED: POTASSIUM EFFERVESENT TAB 25 MEQ PO ONE (09:15)
[2022-09-27] MEDS: PANTOPRAZOLE 40 MG/10 ML VIAL INJ IV SCH (13:12)
[2022-09-27] MEDS: SODIUM CHLORIDE 0.9% 1,000 ML IV SCH ×3 (13:17→22:58)
[2022-09-27 15:55] VITALS: BP 102/75
[2022-09-27 17:00] VITALS: BP 102/65
[2022-09-27] MEDS ORDERED: MORPHINE SULFATE INJ 2 MG/ml SYRG IV ONE (18:15)
[2022-09-27 20:00] VITALS: BP 110/70
[2022-09-27 22:00] VITALS: BP 110/70
[2022-09-27] MEDS: MORPHINE SULFATE INJ 2 MG/ml SYRG IV PRN (22:59)
[2022-09-28] MEDS: MORPHINE SULFATE INJ 2 MG/ml SYRG IV PRN ×4 (03:21→20:14)
[2022-09-28 05:00] VITALS: BP 125/82
[2022-09-28 06:29] LABS: Potassium 4.2 mmol/L (3.5-5.1)
[2022-09-28 06:38] LABS: Albumin 2.8 g/dL (3.4-5.0); BUN/Creatinine Ratio 8.3 (10.0-20.0); Bilirubin, Total 0.6 mg/dL (0.2-1.0); Calcium 7.9 mg/dL (8.5-10.1); Total Protein 5.4 g/dL (6.4-8.2)
[2022-09-28 06:48] LABS: Basophils # (auto) 0 10 ^3/uL (0-0.2); Basophils % (auto) 0.8 % (0.0-2.0); Eosinophils # (auto) 0.2 10 ^3/uL (0-0.8); Eosinophils % (auto) 8.6 % (0.0-7.0); Hematocrit 33.7 % (41.0-53.0); Lymphocytes # (auto) 1.1 10 ^3/uL (0.4-5.4); Lymphocytes % (auto) 39.8 % (10.0-50.0); Mean Corpuscular Hemoglobin 28.2 pg (28.0-32.0); Mean Corpuscular Hgb Conc. 32.5 g/dL (32.0-36.0); Monocytes # (auto) 0.2 10 ^3/uL (0-1.3); Monocytes % (auto) 8.6 % (0.0-12.0); Neutrophils # (auto) 1.1 10 ^3/uL (1.6-8.6); Neutrophils % (auto) 42.2 % (37.0-80.0); Nucleated Red Blood Cells % 0.1 %; Red Blood Cells 3.88 10^6/uL (4.5-5.90); Red Cell Distribution Width 13.3 % (11.8-14.3); White Blood Cell 2.7 10^3/uL (4.4-10.8)
[2022-09-28] MEDS: SODIUM CHLORIDE 0.9% 1,000 ML IV SCH ×2 (07:08→12:11)
[2022-09-28 09:00] VITALS: BP 110/67
[2022-09-28] MEDS: PANTOPRAZOLE 40 MG/10 ML VIAL INJ IV SCH (09:44)
[2022-09-28 13:00] VITALS: BP 109/59
[2022-09-28 17:00] VITALS: BP 109/73
[2022-09-28 20:00] VITALS: BP 110/68
[2022-09-28 22:00] VITALS: BP 110/68
[2022-09-29] MEDS: MORPHINE SULFATE INJ 2 MG/ml SYRG IV PRN ×5 (01:19→20:53)
[2022-09-29 05:00] VITALS: BP 109/79
[2022-09-29] MEDS: SODIUM CHLORIDE 0.9% 1,000 ML IV SCH ×2 (05:38→16:21)
[2022-09-29] MEDS: PANTOPRAZOLE 40 MG/10 ML VIAL INJ IV SCH (10:10)
[2022-09-29] MEDS: ENOXAPARIN SOD 40 MG/0.4 ML SYRINGE SC SCH (10:10)
[2022-09-29 22:00] VITALS: BP 115/80
[2022-09-30] MEDS: MORPHINE SULFATE INJ 2 MG/ml SYRG IV PRN ×3 (01:50→10:11)
[2022-09-30 05:00] VITALS: BP 105/40
[2022-09-30] MEDS: SODIUM CHLORIDE 0.9% 1,000 ML IV SCH (06:39)
[2022-09-30 09:00] VITALS: BP 111/63
[2022-09-30] MEDS: PANTOPRAZOLE 40 MG/10 ML VIAL INJ IV SCH (10:00)
[2022-09-30] MEDS: ENOXAPARIN SOD 40 MG/0.4 ML SYRINGE SC SCH (10:00)
[2022-09-30] MEDS: HYDROcodone-ACET 10/325MG TAB PO PRN ×2 (14:17→21:23)
[2022-09-30 17:00] VITALS: BP 115/69
[2022-09-30] MEDS ORDERED: MORPHINE SULFATE INJ 2 MG/ml SYRG IV PRN (18:00)
[2022-09-30] MEDS: GABAPENTIN 300 MG CAP PO SCH (21:22)
[2022-09-30 22:00] VITALS: BP 118/76
[2022-10-01 05:00] VITALS: BP 114/65
[2022-10-01] MEDS: GABAPENTIN 300 MG CAP PO SCH (06:00)
[2022-10-01 09:00] VITALS: BP 121/75
[2022-10-01] MEDS: ENOXAPARIN SOD 40 MG/0.4 ML SYRINGE SC SCH ×2 (10:00→10:54)
[2022-10-01] MEDS ORDERED: HYDR-4902 PO (11:02)
[2022-10-01] MEDS ORDERED: MORP30CA31 PO (11:02)
[2022-10-01] MEDS: HYDROcodone-ACET 10/325MG TAB PO PRN (11:10)
[2022-10-01] MEDS ORDERED: NALO4SPR2 (11:12)
[2022-10-01 11:18] VITALS: BP 121/75
== END 2022-10-01 11:18 | disposition home or self-care (01) | DRG 861 ==
LOC: ER 02:20 → OVERFLOW 09:05 → CENTRAL 16:09
PROVIDERS: ADMIT Nurse Practitioner Family; ATTEND Hospitalist
DX: G89.3 Neoplasm related pain (acute) (chronic) (principal); C76.2 Malignant neoplasm of abdomen; D64.9 Anemia, unspecified; E86.0 Dehydration; E87.6 Hypokalemia; F41.9 Anxiety disorder, unspecified; K66.9 Disorder of peritoneum, unspecified; N18.9 Chronic kidney disease, unspecified; Z91.199 Patient's noncompliance with other medical treatment and regimen due to unspecified reason; Z87.442 Personal history of urinary calculi; Z82.49 Family history of ischemic heart disease and other diseases of the circulatory system; Z80.0 Family history of malignant neoplasm of digestive organs; N10 Acute pyelonephritis
CPT/HCPCS: 36415; 74176; 80053; 81001; 83605; 83690; 85025; 87040; 87081; 96365; 96375; C9113; G0378; J2543

== ENCOUNTER 2022-11-04 02:10 | Emergency (ER) | payer MEDICAID ==
[~2022-11-04] VITALS: Ht 188 cm; Wt 71.8 kg
[~2022-11-04 02:10] MED LIST changes: -CIPR500T4 PO; +HYDR-4902 PO; -HYDR-531 PO; +LEVO500T91 PO; +NALO4SPR2; -TRAM50TA2 PO
[2022-11-04 02:52] LABS: Basophils # (auto) 0 10 ^3/uL (0-0.2); Basophils % (auto) 0.5 % (0.0-2.0); Eosinophils # (auto) 0.2 10 ^3/uL (0-0.8); Eosinophils % (auto) 5.7 % (0.0-7.0); Hematocrit 37.2 % (41.0-53.0); Hemoglobin 11.9 g/dL (13.5-17.5); Lymphocytes # (auto) 0.7 10 ^3/uL (0.4-5.4); Lymphocytes % (auto) 20.6 % (10.0-50.0); Mean Corpuscular Hemoglobin 27.2 pg (28.0-32.0); Mean Corpuscular Volume 84.9 fL (80.0-100.0); Monocytes # (auto) 0.2 10 ^3/uL (0-1.3); Monocytes % (auto) 7.2 % (0.0-12.0); Neutrophils # (auto) 2.3 10 ^3/uL (1.6-8.6); Nucleated Red Blood Cells % 0.1 %; Red Blood Cells 4.39 10^6/uL (4.5-5.90); Red Cell Distribution Width 14.4 % (11.8-14.3); White Blood Cell 3.5 10^3/uL (4.4-10.8)
[2022-11-04 02:55] LABS: Urine Bacteria NONE SEEN /hpf (None Seen); Urine Blood 3+ /uL (Negative); Urine WBC Clumps PRESENT /hpf (None Seen)
[2022-11-04 03:10] LABS: Albumin 3.7 g/dL (3.4-5.0); BUN/Creatinine Ratio 8.4 (10.0-20.0); Calcium 8.4 mg/dL (8.5-10.1)
[2022-11-04 03:11] LABS: Urine WBC 12 /hpf (0 - 3)
[2022-11-04 03:12] LABS: Bilirubin, Total 0.3 mg/dL (0.2-1.0)
[2022-11-04 03:12] LABS: Urine Specific Gravity 1.025 (1.001-1.035)
[2022-11-04 03:14] LABS: Potassium 2.9 mmol/L (3.5-5.1)
[2022-11-04] MEDS ORDERED: POTASSIUM CHL 20 Meq TABLET PO ONE (03:45)
[2022-11-04] MEDS ORDERED: HYDROcodone-ACET 10/325MG TAB PO ONE (03:45)
[2022-11-04 04:49] VITALS: BP 114/79; PULSE 76; RESP 18; TEMP 98.4; O2SAT 96
== END 2022-11-04 04:38 | disposition home or self-care (01) ==
LOC: ER 02:10
DX: G89.29 Other chronic pain (principal); R10.84 Generalized abdominal pain; F41.9 Anxiety disorder, unspecified; N18.9 Chronic kidney disease, unspecified; Z76.5 Malingerer [conscious simulation]; Z79.1 Long term (current) use of non-steroidal anti-inflammatories (NSAID); Z86.2 Personal history of diseases of the blood and blood-forming organs and certain disorders involving the immune mechanism; Z79.899 Other long term (current) drug therapy
CPT/HCPCS: 36415; 80053; 81001; 85025

== ENCOUNTER 2022-11-23 03:56 | Inpatient (IN) | payer MEDICAID ==
[~2022-11-23] VITALS: Ht 188 cm; Wt 102.4 kg
[2022-11-23 04:37] LABS: Urine Bacteria FEW /hpf (None Seen); Urine Blood 3+ /uL (Negative); Urine Clarity HAZY (Clear); Urine Color Red (Yellow); Urine Hyaline Cast MOD /lpf (0 - 2); Urine Protein, UAD 2+ (Negative); Urine Specific Gravity 1.015 (1.001-1.035); Urine Urobilinogen Normal (Negative); Urine WBC 404 /hpf (0 - 3); Urine WBC Clumps PRESENT /hpf (None Seen)
[2022-11-23 04:43] VITALS: PULSE 85; RESP 20; O2SAT 97
[2022-11-23 04:59] LABS: Basophils # (auto) 0 10 ^3/uL (0-0.2); Basophils % (auto) 0.8 % (0.0-2.0); Eosinophils # (auto) 0.2 10 ^3/uL (0-0.8); Eosinophils % (auto) 4.8 % (0.0-7.0); Hematocrit 38.6 % (41.0-53.0); Hemoglobin 12.2 g/dL (13.5-17.5); Lymphocytes # (auto) 0.8 10 ^3/uL (0.4-5.4); Lymphocytes % (auto) 19.8 % (10.0-50.0); Mean Corpuscular Hemoglobin 27.2 pg (28.0-32.0); Mean Corpuscular Hgb Conc. 31.7 g/dL (32.0-36.0); Mean Corpuscular Volume 85.9 fL (80.0-100.0); Monocytes # (auto) 0.3 10 ^3/uL (0-1.3); Monocytes % (auto) 6.6 % (0.0-12.0); Neutrophils # (auto) 2.9 10 ^3/uL (1.6-8.6); Nucleated Red Blood Cells % 0.1 %; Red Blood Cells 4.49 10^6/uL (4.5-5.90); Red Cell Distribution Width 14.8 % (11.8-14.3); White Blood Cell 4.3 10^3/uL (4.4-10.8)
[2022-11-23] MEDS ORDERED: HYDROcodone-ACET 10/325MG TAB PO ONE (05:15)
[2022-11-23 05:21] LABS: Potassium 3.4 mmol/L (3.5-5.1)
[2022-11-23 05:27] LABS: Albumin 3.6 g/dL (3.4-5.0); BUN/Creatinine Ratio 10.3 (10.0-20.0); Bilirubin, Total 0.4 mg/dL (0.2-1.0); Total Protein 7.2 g/dL (6.4-8.2)
[2022-11-23 05:31] LABS: Calcium 8.5 mg/dL (8.5-10.1)
[2022-11-23] MEDS ORDERED: ONDANSETRON HCL 4 MG/2 ML VIAL IV ONE (06:45)
[2022-11-23] MEDS ORDERED: POTASSIUM EFFERVESENT TAB 25 MEQ PO ONE (06:45)
[2022-11-23] MEDS ORDERED: KETOROLAC TROMETH 30 MG/ML 1ML VIAL IV ONE (06:45)
[2022-11-23] MEDS ORDERED: CEFTRIAXONE SODIUM 2 GM in D5W 5% 100 ML IV ONE (07:00)
[2022-11-23] MEDS ORDERED: ACETAMINOPHEN 325 MG TAB PO PRN (09:30)
[2022-11-23] MEDS ORDERED: TEMAZEPAM 15 MG CAP PO PRN (09:30)
[2022-11-23] MEDS: MORPHINE SULFATE INJ 2 MG/ml SYRG IV PRN ×2 (10:12→16:31)
[2022-11-23 11:26] VITALS: PULSE 80; RESP 20; O2SAT 96
[2022-11-23 12:15] VITALS: BP 110/71; PULSE 70; RESP 22; TEMP 98.5; O2SAT 97
[2022-11-23 12:34] VITALS: BP 122/60; PULSE 80; RESP 20; O2SAT 96
[2022-11-23] MEDS ORDERED: MORP30TA PO (12:52)
[2022-11-23] MEDS ORDERED: HYDR-4798 PO (12:52)
[2022-11-23] MEDS: HYDROcodone-ACET 5/325MG TAB PO PRN ×2 (13:24→22:23)
[2022-11-23 17:00] VITALS: BP 114/61; PULSE 56; RESP 18; TEMP 97.6; O2SAT 97
[2022-11-23 22:00] VITALS: BP 116/69; PULSE 55; RESP 20; TEMP 98; O2SAT 98
[2022-11-24] MEDS: MORPHINE SULFATE INJ 2 MG/ml SYRG IV PRN ×3 (00:29→17:53)
[2022-11-24 05:00] VITALS: BP 106/62; PULSE 62; RESP 20; TEMP 97.7; O2SAT 98
[2022-11-24 05:55] LABS: Basophils # (auto) 0 10 ^3/uL (0-0.2); Basophils % (auto) 0.4 % (0.0-2.0); Eosinophils # (auto) 0.3 10 ^3/uL (0-0.8); Eosinophils % (auto) 9.5 % (0.0-7.0); Hematocrit 38.5 % (41.0-53.0); Hemoglobin 12.3 g/dL (13.5-17.5); Lymphocytes # (auto) 1.1 10 ^3/uL (0.4-5.4); Lymphocytes % (auto) 33.1 % (10.0-50.0); Mean Corpuscular Hemoglobin 27.2 pg (28.0-32.0); Mean Corpuscular Volume 85.2 fL (80.0-100.0); Monocytes # (auto) 0.2 10 ^3/uL (0-1.3); Monocytes % (auto) 7.4 % (0.0-12.0); Neutrophils # (auto) 1.6 10 ^3/uL (1.6-8.6); Neutrophils % (auto) 49.6 % (37.0-80.0); Nucleated Red Blood Cells % 0.3 %; Red Blood Cells 4.52 10^6/uL (4.5-5.90); Red Cell Distribution Width 14.6 % (11.8-14.3); White Blood Cell 3.3 10^3/uL (4.4-10.8)
[2022-11-24 06:35] LABS: Potassium 4.2 mmol/L (3.5-5.1)
[2022-11-24 06:41] LABS: Albumin 3.3 g/dL (3.4-5.0); BUN/Creatinine Ratio 12.1 (10.0-20.0); Bilirubin, Total 0.5 mg/dL (0.2-1.0); Calcium 8.6 mg/dL (8.5-10.1); Total Protein 6.3 g/dL (6.4-8.2)
[2022-11-24 08:00] VITALS: PULSE 56; RESP 18; TEMP 36.5; O2SAT 96
[2022-11-24] MEDS: HYDROcodone-ACET 5/325MG TAB PO PRN ×2 (09:31→22:18)
[2022-11-24] MEDS: cefTRIAXone 1GM/50ML D5W 50 ML IV SCH (09:31)
[2022-11-24 13:00] VITALS: BP 116/63; PULSE 66; RESP 21; TEMP 98.3; O2SAT 98
[2022-11-24 16:18] VITALS: BP 107/68; PULSE 73; RESP 20; TEMP 97.8; O2SAT 96
[2022-11-24 22:00] VITALS: BP 109/61; PULSE 65; RESP 16; TEMP 98.2; O2SAT 97
[2022-11-25] VITALS (7 sets, daily range): BP systolic 91–111; BP diastolic 37–64; PULSE 52–64; RESP 16–20; TEMP 36.5; O2SAT 95–99
[2022-11-25] MEDS: MORPHINE SULFATE INJ 2 MG/ml SYRG IV PRN ×3 (00:45→18:20)
[2022-11-25] MEDS: cefTRIAXone 1GM/50ML D5W 50 ML IV SCH (11:14)
[2022-11-26] VITALS (7 sets, daily range): BP systolic 92–124; BP diastolic 52–95; PULSE 60–71; RESP 15–18; TEMP 36.5; O2SAT 95–100
[2022-11-26] MEDS: MORPHINE SULFATE INJ 2 MG/ml SYRG IV PRN ×3 (00:25→20:00)
[2022-11-26] MEDS: cefTRIAXone 1GM/50ML D5W 50 ML IV SCH (10:03)
[2022-11-26] MEDS ORDERED: CIPROFLOXACIN 400MG/200ML 200 ML IV ONE (10:38)
[2022-11-26] MEDS ORDERED: IOHEXOL 300 MG/ML 100ML BOTTLE IJ ONE (11:54)
[2022-11-26] MEDS ORDERED: MIDAZOLAM HCL 2MG/2ML 2ml VIAL (1mg/ml) ONE (11:57)
[2022-11-26] MEDS ORDERED: fentaNYL CITRATE 100 MCG/2 ML VL ONE (11:57)
[2022-11-26] MEDS ORDERED: PROPOFOL 10 MG/ML 20 ML IV ONE ×2 (12:03→13:19)
[2022-11-26] MEDS ORDERED: LIDOCAINE HCL 100 MG/5ML (2%) SYRG INJ IV ONE (12:03)
[2022-11-26] MEDS ORDERED: LIDOCAINE 2% (LOCAL ANESTH.) PF 5ml SDV ONE (13:18)
[2022-11-26] MEDS ORDERED: ONDANSETRON HCL 4 MG/2 ML VIAL ONE (13:18)
[2022-11-26] MEDS ORDERED: ROCURONIUM 10MG/ML 10ML VIAL IV ONE (13:18)
[2022-11-26] MEDS ORDERED: NEOSTIGMINE 1 MG/ML INJ (10mg/10ML VIAL) ONE (13:19)
[2022-11-26] MEDS ORDERED: GLYCOPYRROLATE 0.2 MG/ML 1ML VIAL ONE (13:19)
[2022-11-26 18:40] LABS: INR 0.98 (0.9-1.15); Partial Thromboplastin Time 24.2 SEC (24.5-34.5); Prothrombin Time 10.3 sec (9.3-11.8)
[2022-11-27] MEDS: MORPHINE SULFATE INJ 2 MG/ml SYRG IV PRN ×3 (02:12→17:40)
[2022-11-27 03:58] LABS: Urine Bacteria NONE SEEN /hpf (None Seen); Urine Blood 3+ /uL (Negative); Urine Clarity Clear (Clear); Urine Color Yellow (Yellow); Urine Mucus FEW (None Seen); Urine Protein, UAD TRACE (Negative); Urine Specific Gravity 1.011 (1.001-1.035); Urine Urobilinogen Normal (Negative); Urine WBC 5 /hpf (0 - 3)
[2022-11-27 05:00] VITALS: BP 113/71; PULSE 69; RESP 17; TEMP 98.9; O2SAT 95
[2022-11-27 08:00] VITALS: PULSE 91; RESP 18; O2SAT 98
[2022-11-27 09:00] VITALS: BP 113/71; PULSE 91; RESP 16; TEMP 98; O2SAT 98
[2022-11-27 12:00] VITALS: BP 106/75; PULSE 64; RESP 16; TEMP 97.6; O2SAT 65
[2022-11-27] MEDS: cefTRIAXone 1GM/50ML D5W 50 ML IV SCH (12:22)
[2022-11-27] MEDS ORDERED: LIDOCAINE 2%HCL (LOCAL ANESTH.) INJ 20ML MDV ONE (14:30)
[2022-11-27] MEDS ORDERED: fentaNYL CITRATE 100 MCG/2 ML VL ONE (14:37)
[2022-11-27] MEDS ORDERED: MIDAZOLAM HCL 2MG/2ML 2ml VIAL (1mg/ml) ONE (14:38)
[2022-11-27] MEDS ORDERED: IODIXANOL 320MG/ML 100ML BTL IV ONE (14:50)
[2022-11-27 20:00] VITALS: RESP 18; O2SAT 98
[2022-11-27 22:00] VITALS: BP 116/79; PULSE 68; RESP 18; TEMP 98.9; O2SAT 93
[2022-11-28] VITALS (7 sets, daily range): BP systolic 101–128; BP diastolic 59–84; PULSE 62–90; RESP 17–18; TEMP 97.8–99; O2SAT 92–100
[2022-11-28] MEDS: MORPHINE SULFATE INJ 2 MG/ml SYRG IV PRN ×3 (00:10→18:11)
[2022-11-28 06:34] LABS: BUN/Creatinine Ratio 10.1 (10.0-20.0); Calcium 8.4 mg/dL (8.5-10.1); Potassium 3.7 mmol/L (3.5-5.1)
[2022-11-28] MEDS: cefTRIAXone 1GM/50ML D5W 50 ML IV SCH (09:07)
[2022-11-29] VITALS (7 sets, daily range): BP systolic 103–113; BP diastolic 56–68; PULSE 57–83; RESP 17–20; TEMP 97.8–98.6; O2SAT 95–100
[2022-11-29] MEDS: MORPHINE SULFATE INJ 2 MG/ml SYRG IV PRN ×4 (00:33→23:12)
[2022-11-29] MEDS: cefTRIAXone 1GM/50ML D5W 50 ML IV SCH (09:20)
[2022-11-30] VITALS (7 sets, daily range): BP systolic 106–141; BP diastolic 67–97; PULSE 60–78; RESP 17–20; TEMP 98.3–98.6; O2SAT 95–100
[2022-11-30] MEDS: MORPHINE SULFATE INJ 2 MG/ml SYRG IV PRN ×3 (05:14→18:14)
[2022-11-30] MEDS: cefTRIAXone 1GM/50ML D5W 50 ML IV SCH (09:39)
[2022-12-01] VITALS (7 sets, daily range): BP systolic 91–130; BP diastolic 42–91; PULSE 67–75; RESP 16–18; TEMP 97.8–98.5; O2SAT 97–99
[2022-12-01] MEDS: MORPHINE SULFATE INJ 2 MG/ml SYRG IV PRN ×4 (00:29→20:33)
[2022-12-01] MEDS: cefTRIAXone 1GM/50ML D5W 50 ML IV SCH (10:08)
[2022-12-02] VITALS (7 sets, daily range): BP systolic 106–121; BP diastolic 49–82; PULSE 56–74; RESP 16–18; TEMP 97.8–98.6; O2SAT 96–98
[2022-12-02] MEDS: MORPHINE SULFATE INJ 2 MG/ml SYRG IV PRN ×4 (03:02→21:20)
[2022-12-02 07:50] LABS: Basophils # (auto) 0 10 ^3/uL (0-0.2); Basophils % (auto) 0.8 % (0.0-2.0); Eosinophils # (auto) 0.3 10 ^3/uL (0-0.8); Eosinophils % (auto) 9.4 % (0.0-7.0); Hematocrit 34.6 % (41.0-53.0); Hemoglobin 11.2 g/dL (13.5-17.5); Lymphocytes # (auto) 1.1 10 ^3/uL (0.4-5.4); Lymphocytes % (auto) 38.4 % (10.0-50.0); Mean Corpuscular Hemoglobin 27.4 pg (28.0-32.0); Mean Corpuscular Hgb Conc. 32.4 g/dL (32.0-36.0); Mean Corpuscular Volume 84.5 fL (80.0-100.0); Monocytes # (auto) 0.2 10 ^3/uL (0-1.3); Monocytes % (auto) 8.3 % (0.0-12.0); Neutrophils # (auto) 1.2 10 ^3/uL (1.6-8.6); Neutrophils % (auto) 43.1 % (37.0-80.0); Nucleated Red Blood Cells % 0.1 %; Red Cell Distribution Width 14.7 % (11.8-14.3); White Blood Cell 2.8 10^3/uL (4.4-10.8)
[2022-12-02 08:10] LABS: Calcium 8.7 mg/dL (8.5-10.1); Potassium 3.8 mmol/L (3.5-5.1)
[2022-12-02 08:14] LABS: Bilirubin, Total 0.4 mg/dL (0.2-1.0); Total Protein 6.2 g/dL (6.4-8.2)
[2022-12-02] MEDS: cefTRIAXone 1GM/50ML D5W 50 ML IV SCH (09:05)
[2022-12-03] MEDS: MORPHINE SULFATE INJ 2 MG/ml SYRG IV PRN ×3 (03:31→19:09)
[2022-12-03] MEDS ORDERED: ROCURONIUM 10MG/ML 10ML VIAL IV ONE (06:54)
[2022-12-03] MEDS ORDERED: BUPIVACAINE 0.5% P/F INJ 10 ML VIAL ONE (06:54)
[2022-12-03] MEDS ORDERED: SUCCINYLCHOLINE CHLORIDE 20 MG/ML 10ML VIAL IV ONE (06:54)
[2022-12-03] MEDS ORDERED: MIDAZOLAM HCL 2MG/2ML 2ml VIAL (1mg/ml) ONE (07:08)
[2022-12-03] MEDS ORDERED: ONDANSETRON HCL 4 MG/2 ML VIAL ONE (07:08)
[2022-12-03] MEDS ORDERED: fentaNYL CITRATE 100 MCG/2 ML VL ONE (07:08)
[2022-12-03] MEDS ORDERED: SODIUM CHLORIDE LOCK 10 ML ONE (07:08)
[2022-12-03] MEDS ORDERED: MEPERIDINE HCL (50 MG/ML) 1 ML VIAL ONE (07:08)
[2022-12-03] MEDS ORDERED: PROPOFOL 10 MG/ML 20 ML IV ONE (07:08)
[2022-12-03] MEDS ORDERED: DexAMETHasone SOD PHOS 10MG/1ML VIAL INJ ONE (07:08)
[2022-12-03] MEDS ORDERED: CIPROFLOXACIN 400MG/200ML 200 ML IV ONE (07:14)
[2022-12-03] MEDS ORDERED: MORPHINE SULFATE INJ 2 MG/ml SYRG IV PRN (07:30)
[2022-12-03] MEDS ORDERED: METOCLOPRAMIDE HCL 5MG/ml INJ 2ml VIAL IV PRN (07:30)
[2022-12-03] MEDS ORDERED: HYDROmorphone HCL 2 MG/ML VL/or syr IV PRN ×2 (07:30)
[2022-12-03] MEDS ORDERED: KETAMINE HCL 10 ML ONE (07:39)
[2022-12-03] MEDS ORDERED: IOHEXOL 300 MG/ML 100ML BOTTLE IJ ONE ×2 (08:30)
[2022-12-03 10:03] VITALS: RESP 14; O2SAT 99
[2022-12-03] MEDS ORDERED: SODIUM CHLORIDE 0.9% 500 ML IV ONE (12:00)
[2022-12-03] MEDS ORDERED: IOHEXOL 350 MG/ML 100ML IJ ONE (12:07)
[2022-12-03] MEDS: ONDANSETRON HCL 4 MG/2 ML VIAL IV PRN ×2 (12:08→19:08)
[2022-12-03] MEDS: cefTRIAXone 1GM/50ML D5W 50 ML IV SCH (12:09)
[2022-12-03 13:00] VITALS: BP 128/84; PULSE 69; RESP 14; TEMP 98.1; O2SAT 100
[2022-12-03 13:57] LABS: Chloride 109 mmol/L (98-107); Potassium 4.5 mmol/L (3.5-5.1); Sodium 138 mmol/L (136-145)
[2022-12-03 13:58] LABS: Anion Gap 9.5 (5-15); Carbon Dioxide 19.5 mmol/L (20-30)
[2022-12-03 13:59] LABS: Calcium 8.8 mg/dL (8.5-10.1)
[2022-12-03 14:03] LABS: Glucose 115 mg/dL (74-106)
[2022-12-03 14:04] LABS: BUN/Creatinine Ratio 11.8 (10.0-20.0); Blood Urea Nitrogen 13 mg/dL (9-23)
[2022-12-03 16:32] VITALS: BP 124/73; PULSE 62; RESP 14; TEMP 97.7; O2SAT 98
[2022-12-03 21:38] LABS: Basophils # (auto) 0 10 ^3/uL (0-0.2); Basophils % (auto) 0.4 % (0.0-2.0); Eosinophils # (auto) 0 10 ^3/uL (0-0.8); Eosinophils % (auto) 0.1 % (0.0-7.0); Hematocrit 35.1 % (41.0-53.0); Hemoglobin 11.1 g/dL (13.5-17.5); Lymphocytes # (auto) 0.3 10 ^3/uL (0.4-5.4); Lymphocytes % (auto) 5.5 % (10.0-50.0); Mean Corpuscular Hemoglobin 26.8 pg (28.0-32.0); Mean Corpuscular Hgb Conc. 31.5 g/dL (32.0-36.0); Mean Corpuscular Volume 85.1 fL (80.0-100.0); Monocytes # (auto) 0.2 10 ^3/uL (0-1.3); Monocytes % (auto) 3.1 % (0.0-12.0); Neutrophils # (auto) 5.8 10 ^3/uL (1.6-8.6); Neutrophils % (auto) 90.9 % (37.0-80.0); Red Blood Cells 4.12 10^6/uL (4.5-5.90); Red Cell Distribution Width 14.5 % (11.8-14.3); White Blood Cell 6.3 10^3/uL (4.4-10.8)
[2022-12-03 22:00] VITALS: BP 129/69; PULSE 65; RESP 19; TEMP 98.8; O2SAT 98
[2022-12-04] MEDS: ONDANSETRON HCL 4 MG/2 ML VIAL IV PRN ×2 (01:22→09:36)
[2022-12-04] MEDS: MORPHINE SULFATE INJ 2 MG/ml SYRG IV PRN ×2 (01:23→09:37)
[2022-12-04 05:00] VITALS: BP 105/65; PULSE 82; RESP 19; TEMP 98.1; O2SAT 97
[2022-12-04 08:00] VITALS: PULSE 59; RESP 16
[2022-12-04 09:00] VITALS: BP 96/51; PULSE 59; RESP 16; TEMP 98.1; O2SAT 95
[2022-12-04] MEDS: cefTRIAXone 1GM/50ML D5W 50 ML IV SCH (09:37)
[2022-12-04 13:00] VITALS: BP 108/57; PULSE 68; RESP 18; TEMP 98.5; O2SAT 99
[2022-12-04 17:00] VITALS: BP 114/72; PULSE 63; RESP 19; TEMP 97.9; O2SAT 98
== END 2022-12-04 18:03 | disposition left against medical advice (07) | DRG 443 ==
LOC: ER 03:56 → OVERFLOW 09:25 → TELE-EAST 12:28 → EAST 15:22
PROVIDERS: ADMIT Nurse Practitioner; ATTEND Internal Medicine
PROC: BT1F1ZZ Fluoroscopy of Left Kidney, Ureter and Bladder using Low Osmolar Contrast (ICD-10-PCS; principal; 2022-11-26 12:00)
PROC: 0T9330Z Drainage of Right Kidney Pelvis with Drainage Device, Percutaneous Approach (ICD-10-PCS; 2022-11-27)
PROC: BT111ZZ Fluoroscopy of Right Kidney using Low Osmolar Contrast (ICD-10-PCS; 2022-11-27)
PROC: 0TC44ZZ Extirpation of Matter from Left Kidney Pelvis, Percutaneous Endoscopic Approach (ICD-10-PCS; 2022-12-03)
PROC: 0T9430Z Drainage of Left Kidney Pelvis with Drainage Device, Percutaneous Approach (ICD-10-PCS; 2022-12-03)
PROC: BT121ZZ Fluoroscopy of Left Kidney using Low Osmolar Contrast (ICD-10-PCS; 2022-12-03)
DX: T83.012A Breakdown (mechanical) of nephrostomy catheter, initial encounter (principal); N17.0 Acute kidney failure with tubular necrosis; D61.818 Other pancytopenia; N13.6 Pyonephrosis; N13.8 Other obstructive and reflux uropathy; D48.1 Neoplasm of uncertain behavior of connective and other soft tissue; D64.9 Anemia, unspecified; F11.20 Opioid dependence, uncomplicated; F41.9 Anxiety disorder, unspecified; N18.30 Chronic kidney disease, stage 3 unspecified; Y73.2 Prosthetic and other implants, materials and accessory gastroenterology and urology devices associated with adverse incidents; R31.0 Gross hematuria; G89.4 Chronic pain syndrome; Z93.3 Colostomy status; Z91.199 Patient's noncompliance with other medical treatment and regimen due to unspecified reason; Z87.442 Personal history of urinary calculi; Z80.0 Family history of malignant neoplasm of digestive organs; Z82.49 Family history of ischemic heart disease and other diseases of the circulatory system; Z80.9 Family history of malignant neoplasm, unspecified; Z85.89 Personal history of malignant neoplasm of other organs and systems; Y92.89 Other specified places as the place of occurrence of the external cause
CPT/HCPCS: 36415; 74018; 74021; 74176; 74235; 76000; 76942; 80048; 80053; 81001; 83690; 85025; 85610; 85730; 86850; 86900; 86901; 87086; 96365; 96375; 99152; G0378; J0330; J0696; J1100; J1885; J2001; J2250; J2405; J2704; J3490; J7060; Q9967

== ENCOUNTER 2022-12-12 05:51 | Inpatient (IN) | payer MEDICAID ==
[~2022-12-12] VITALS: Ht 188 cm; Wt 79.9 kg
[~2022-12-12 05:51] MED LIST changes: -CARI350T27 PO; +HYDR-4798 PO; -HYDR-4902 PO; -LEVO500T91 PO; -NALO4SPR2
[2022-12-12 07:27] LABS: Basophils # (auto) 0.1 10 ^3/uL (0-0.2); Basophils % (auto) 1.2 % (0.0-2.0); Eosinophils # (auto) 0.1 10 ^3/uL (0-0.8); Eosinophils % (auto) 3.3 % (0.0-7.0); Hematocrit 35.4 % (41.0-53.0); Hemoglobin 11.7 g/dL (13.5-17.5); Lymphocytes # (auto) 0.6 10 ^3/uL (0.4-5.4); Lymphocytes % (auto) 13.8 % (10.0-50.0); Mean Corpuscular Hemoglobin 28.1 pg (28.0-32.0); Mean Corpuscular Hgb Conc. 32.9 g/dL (32.0-36.0); Mean Corpuscular Volume 85.4 fL (80.0-100.0); Monocytes # (auto) 0.2 10 ^3/uL (0-1.3); Monocytes % (auto) 4.9 % (0.0-12.0); Neutrophils # (auto) 3.4 10 ^3/uL (1.6-8.6); Neutrophils % (auto) 76.8 % (37.0-80.0); Nucleated Red Blood Cells % 0.1 %; Red Blood Cells 4.14 10^6/uL (4.5-5.90); Red Cell Distribution Width 14.9 % (11.8-14.3); White Blood Cell 4.4 10^3/uL (4.4-10.8)
[2022-12-12 08:03] LABS: Alanine Aminotransferase 38 U/L (7-40); Albumin 4.5 g/dL (3.2-4.8); Alkaline Phosphatase 97 U/L (46-116); Anion Gap 10.2 (5-15); Aspartate Aminotransferase 24 U/L (13-40); BUN/Creatinine Ratio 12.2 (10.0-20.0); Bilirubin, Total 0.5 mg/dL (0.2-1.0); Blood Urea Nitrogen 20 mg/dL (9-23); Calcium 9.1 mg/dL (8.7-10.4); Carbon Dioxide 16.8 mmol/L (20-30); Chloride 111 mmol/L (98-107); Glucose 109 mg/dL (74-106); Lipase 52 U/L (12-53); Potassium 3.5 mmol/L (3.5-5.1); Sodium 138 mmol/L (136-145); Total Protein 7.2 g/dL (5.7-8.2)
[2022-12-12 08:12] LABS: Urine WBC None Seen /hpf (0 - 3)
[2022-12-12] MEDS ORDERED: ONDANSETRON ODT 4 MG TAB PO ONE (08:15)
[2022-12-12 08:31] LABS: Urine Bacteria NONE SEEN /hpf (None Seen); Urine Blood 3+ /uL (Negative); Urine Clarity CLOUDY (Clear); Urine Color Red (Yellow); Urine Protein, UAD 2+ (Negative); Urine Urobilinogen Normal (Negative)
[2022-12-12] MEDS ORDERED: cefTRIAXone 1GM/50ML D5W 50 ML IV ONE (10:45)
[2022-12-12 11:15] VITALS: PULSE 60; RESP 14; O2SAT 99
[2022-12-12] MEDS ORDERED: MORPHINE SULFATE 4 MG/ML SYR/VIAL IV ONE (12:00)
[2022-12-12] MEDS ORDERED: ONDANSETRON HCL 4 MG/2 ML VIAL IV ONE (12:00)
[2022-12-12] MEDS ORDERED: KETOROLAC TROMETH 30 MG/ML 1ML VIAL IV ONE (13:15)
[2022-12-12] MEDS ORDERED: ACETAMINOPHEN 325 MG TAB PO PRN (13:15)
[2022-12-12] MEDS ORDERED: ONDANSETRON HCL 4 MG/2 ML VIAL IV PRN (13:15)
[2022-12-12] MEDS ORDERED: HYDROcodone-ACET 5/325MG TAB PO PRN (13:15)
[2022-12-12] MEDS: SODIUM CHLORIDE 0.9% 1,000 ML IV SCH (13:52)
[2022-12-12 15:06] LABS: INR 1.01 (0.9-1.15); Partial Thromboplastin Time 24.8 SEC (24.5-34.5); Prothrombin Time 10.6 sec (9.3-11.8)
[2022-12-12 16:03] VITALS: BP 108/70; PULSE 55; RESP 17; TEMP 97.5; O2SAT 99
[2022-12-12 17:31] VITALS: BP 108/70; PULSE 55; RESP 17; TEMP 97.5; O2SAT 99
[2022-12-12 19:30] VITALS: PULSE 78; RESP 20; O2SAT 95
[2022-12-12] MEDS: MORPHINE SULFATE INJ 2 MG/ml SYRG IV PRN (20:26)
[2022-12-12 20:30] VITALS: PULSE 80; RESP 17
[2022-12-12 22:00] VITALS: BP 111/71; PULSE 72; RESP 16; TEMP 97.8; O2SAT 98
[2022-12-13] VITALS (9 sets, daily range): BP systolic 96–128; BP diastolic 55–74; PULSE 50–80; RESP 16–20; TEMP 97.7–98.2; O2SAT 96–100
[2022-12-13] MEDS: MORPHINE SULFATE INJ 2 MG/ml SYRG IV PRN ×3 (02:48→23:55)
[2022-12-13] MEDS: SODIUM CHLORIDE 0.9% 1,000 ML IV SCH ×3 (06:35→19:15)
[2022-12-13 06:42] LABS: Basophils # (auto) 0 10 ^3/uL (0-0.2); Basophils % (auto) 0.5 % (0.0-2.0); Eosinophils # (auto) 0.2 10 ^3/uL (0-0.8); Eosinophils % (auto) 7.5 % (0.0-7.0); Hematocrit 33.6 % (41.0-53.0); Hemoglobin 10.9 g/dL (13.5-17.5); Lymphocytes % (auto) 30.4 % (10.0-50.0); Mean Corpuscular Hgb Conc. 32.4 g/dL (32.0-36.0); Mean Corpuscular Volume 86.5 fL (80.0-100.0); Monocytes # (auto) 0.3 10 ^3/uL (0-1.3); Neutrophils # (auto) 1.7 10 ^3/uL (1.6-8.6); Neutrophils % (auto) 52.6 % (37.0-80.0); Nucleated Red Blood Cells % 0.1 %; Red Blood Cells 3.89 10^6/uL (4.5-5.90); Red Cell Distribution Width 14.6 % (11.8-14.3); White Blood Cell 3.2 10^3/uL (4.4-10.8)
[2022-12-13 06:43] LABS: Alanine Aminotransferase 27 U/L (7-40); Albumin 3.6 g/dL (3.2-4.8); Alkaline Phosphatase 80 U/L (46-116); Anion Gap 6.4 (5-15); Aspartate Aminotransferase 17 U/L (13-40); BUN/Creatinine Ratio 13.7 (10.0-20.0); Blood Urea Nitrogen 18 mg/dL (9-23); Calcium 8.5 mg/dL (8.7-10.4); Carbon Dioxide 18.6 mmol/L (20-30); Chloride 112 mmol/L (98-107); Glucose 99 mg/dL (74-106); Sodium 137 mmol/L (136-145)
[2022-12-13 06:44] LABS: Bilirubin, Total 0.5 mg/dL (0.2-1.0)
[2022-12-13 06:45] LABS: Total Protein 5.7 g/dL (5.7-8.2)
[2022-12-13] MEDS: cefTRIAXone 1GM/50ML D5W 50 ML IV SCH (09:00)
[2022-12-13] MEDS: ENOXAPARIN SOD 40 MG/0.4 ML SYRINGE SC SCH (10:00)
[2022-12-13] MEDS ORDERED: IODIXANOL 320MG/ML 100ML BTL IV ONE (10:12)
[2022-12-13] MEDS ORDERED: LIDOCAINE 2%HCL (LOCAL ANESTH.) INJ 20ML MDV ONE (10:13)
[2022-12-13] MEDS ORDERED: MIDAZOLAM HCL 2MG/2ML 2ml VIAL (1mg/ml) ONE (10:27)
[2022-12-13] MEDS ORDERED: fentaNYL CITRATE 100 MCG/2 ML VL ONE (10:27)
[2022-12-13] MEDS ORDERED: diphenhdrAMINE HCL 50 MG/1 ML VL ONE (11:03)
[2022-12-14] VITALS (7 sets, daily range): BP systolic 105–122; BP diastolic 63–84; PULSE 70–93; RESP 16–18; TEMP 97.8–98.5; O2SAT 97–100
[2022-12-14] MEDS: SODIUM CHLORIDE 0.9% 1,000 ML IV SCH ×2 (05:15→15:37)
[2022-12-14] MEDS: MORPHINE SULFATE INJ 2 MG/ml SYRG IV PRN ×4 (06:04→21:04)
[2022-12-14 08:13] LABS: Chloride 111 mmol/L (98-107); Potassium 3.7 mmol/L (3.5-5.1); Sodium 139 mmol/L (136-145)
[2022-12-14 08:14] LABS: Anion Gap 6.4 (5-15); Calcium 8.4 mg/dL (8.5-10.1); Carbon Dioxide 21.6 mmol/L (20-30)
[2022-12-14 08:19] LABS: BUN/Creatinine Ratio 12.6 (10.0-20.0); Blood Urea Nitrogen 17 mg/dL (9-23); Glucose 94 mg/dL (74-106)
[2022-12-14] MEDS: cefTRIAXone 1GM/50ML D5W 50 ML IV SCH (08:59)
[2022-12-14] MEDS: ENOXAPARIN SOD 40 MG/0.4 ML SYRINGE SC SCH (09:00)
[2022-12-15 00:03] VITALS: BP 119/72; PULSE 70; RESP 18; TEMP 97.8; O2SAT 99
[2022-12-15] MEDS: SODIUM CHLORIDE 0.9% 1,000 ML IV SCH (02:00)
[2022-12-15] MEDS: cefTRIAXone 1GM/50ML D5W 50 ML IV SCH (09:00)
[2022-12-15] MEDS: ENOXAPARIN SOD 40 MG/0.4 ML SYRINGE SC SCH (09:49)
[2022-12-15] MEDS ORDERED: CEPH250C PO (11:19)
[2022-12-15] MEDS ORDERED: HYDR-4902 PO (11:19)
[2022-12-15 12:24] VITALS: TEMP 36.6
== END 2022-12-15 13:00 | disposition home or self-care (01) | DRG 463 ==
LOC: ER 05:51 → OVERFLOW 13:19 → EAST 16:06
PROVIDERS: ADMIT Nurse Practitioner Family; ATTEND Internal Medicine Geriatric Medicine
PROC: 0T913ZZ Drainage of Left Kidney, Percutaneous Approach (ICD-10-PCS; principal; 2022-12-13)
PROC: 0T773DZ Dilation of Left Ureter with Intraluminal Device, Percutaneous Approach (ICD-10-PCS; 2022-12-13)
DX: N13.6 Pyonephrosis (principal); D64.9 Anemia, unspecified; F41.9 Anxiety disorder, unspecified; N18.9 Chronic kidney disease, unspecified; Z93.3 Colostomy status; Z85.46 Personal history of malignant neoplasm of prostate; Z87.442 Personal history of urinary calculi; Z80.0 Family history of malignant neoplasm of digestive organs; Z82.49 Family history of ischemic heart disease and other diseases of the circulatory system
CPT/HCPCS: 36415; 74176; 74425; 76775; 76942; 80048; 80053; 81001; 83690; 83735; 85025; 85610; 85730; 99152; 99153; G0378; J0696; J1885; J2250; J2405; Q0162; Q9967

== ENCOUNTER 2022-12-16 06:26 | Emergency (ER) | payer MEDICAID ==
[~2022-12-16] VITALS: Ht 188 cm; Wt 73.6 kg
[~2022-12-16 06:26] MED LIST changes: +CEPH250C PO; +HYDR-4902 PO
[2022-12-16 08:05] VITALS: BP 116/75; PULSE 72; RESP 16; TEMP 97.4; O2SAT 100
[2022-12-27] MEDS ORDERED: HYDR-4902 PO (13:40)
[2022-12-27] MEDS ORDERED: CIPR500T4 PO (13:40)
== END 2022-12-16 08:21 | disposition home or self-care (01) ==
LOC: ER 06:26
DX: N99.522 Malfunction of incontinent external stoma of urinary tract (principal); F41.9 Anxiety disorder, unspecified; Z85.9 Personal history of malignant neoplasm, unspecified; Z86.2 Personal history of diseases of the blood and blood-forming organs and certain disorders involving the immune mechanism; Z87.442 Personal history of urinary calculi; Z79.1 Long term (current) use of non-steroidal anti-inflammatories (NSAID); Z79.899 Other long term (current) drug therapy

== ENCOUNTER 2022-12-24 06:18 | Emergency (ER) | payer MEDICAID ==
[~2022-12-24] VITALS: Ht 188 cm; Wt 160.0 kg
[2022-12-24 08:22] LABS: Basophils # (auto) 0 10 ^3/uL (0-0.2); Basophils % (auto) 0.6 % (0.0-2.0); Eosinophils # (auto) 0.1 10 ^3/uL (0-0.8); Hematocrit 36.4 % (41.0-53.0); Hemoglobin 11.6 g/dL (13.5-17.5); Lymphocytes # (auto) 0.6 10 ^3/uL (0.4-5.4); Lymphocytes % (auto) 15.1 % (10.0-50.0); Mean Corpuscular Hgb Conc. 31.9 g/dL (32.0-36.0); Mean Corpuscular Volume 84.6 fL (80.0-100.0); Monocytes # (auto) 0.2 10 ^3/uL (0-1.3); Monocytes % (auto) 6.4 % (0.0-12.0); Neutrophils # (auto) 2.8 10 ^3/uL (1.6-8.6); Neutrophils % (auto) 74.9 % (37.0-80.0); Red Cell Distribution Width 14.2 % (11.8-14.3); White Blood Cell 3.8 10^3/uL (4.4-10.8)
[2022-12-24 08:54] LABS: Urine Bacteria FEW /hpf (None Seen); Urine Blood 3+ /uL (Negative); Urine Clarity HAZY (Clear); Urine Color Yellow (Yellow); Urine Protein, UAD 2+ (Negative); Urine Specific Gravity 1.023 (1.001-1.035); Urine Urobilinogen Normal (Negative); Urine WBC 25 /hpf (0 - 3)
[2022-12-24 08:56] LABS: Alanine Aminotransferase 42 U/L (7-40); Albumin 4.5 g/dL (3.2-4.8); Alkaline Phosphatase 109 U/L (46-116); Anion Gap 7.4 (5-15); Aspartate Aminotransferase 39 U/L (13-40); Blood Urea Nitrogen 20 mg/dL (9-23); Calcium 9.4 mg/dL (8.7-10.4); Carbon Dioxide 21.6 mmol/L (20-30); Chloride 107 mmol/L (98-107); Glucose 103 mg/dL (74-106); Lipase 63 U/L (12-53); Potassium 3.3 mmol/L (3.5-5.1); Sodium 136 mmol/L (136-145)
[2022-12-24 08:57] LABS: Bilirubin, Total 0.5 mg/dL (0.2-1.0); Total Protein 6.9 g/dL (5.7-8.2)
[2022-12-24] MEDS ORDERED: metroNIDAZOLE 500MG/100ML 100 ML IV ONE (10:30)
[2022-12-24] MEDS ORDERED: cefTRIAXone 1GM/50ML D5W 50 ML IV ONE (10:30)
[2022-12-24] MEDS ORDERED: SODIUM CHLORIDE 0.9% 1,000 ML IV ONE ×2 (10:30)
[2022-12-24 11:10] VITALS: PULSE 81; RESP 19; O2SAT 98
[2022-12-24] MEDS ORDERED: ACETAMINOPHEN 325 MG TAB PO PRN (11:30)
[2022-12-24] MEDS ORDERED: ONDANSETRON HCL 4 MG/2 ML VIAL IV PRN (11:45)
[2022-12-24] MEDS ORDERED: POTASSIUM CHL 20 Meq TABLET PO ONE (11:45)
[2022-12-24] MEDS ORDERED: MORPHINE SULFATE INJ 2 MG/ml SYRG IV PRN (11:45)
[2022-12-24] MEDS ORDERED: BACDST PO (12:02)
[2022-12-24 12:04] LABS: Triglycerides 85 mg/dL (< 150)
[2022-12-24 12:05] LABS: LDL Cholesterol 84 mg/dL (< 100)
[2022-12-24 12:06] LABS: Cholesterol 203 mg/dL (< 200); HDL Cholesterol 107 mg/dL (40-59)
[2022-12-24 13:00] VITALS: BP 129/72; PULSE 72; RESP 19; TEMP 98; O2SAT 94
[2022-12-25] MEDS ORDERED: ENOXAPARIN SOD 40 MG/0.4 ML SYRINGE SC SCH (10:00)
[2022-12-27] MEDS ORDERED: CIPR500T4 PO (13:40)
[2022-12-27] MEDS ORDERED: HYDR-4902 PO (13:40)
== END 2022-12-24 14:46 | disposition home or self-care (01) ==
LOC: ER 06:18 → OVERFLOW 11:36 → UNDOADMIN 11:36 → UNDODISIN 15:08
DX: N39.0 Urinary tract infection, site not specified (principal); F41.9 Anxiety disorder, unspecified; Z82.49 Family history of ischemic heart disease and other diseases of the circulatory system; Z87.442 Personal history of urinary calculi; Z90.49 Acquired absence of other specified parts of digestive tract
CPT/HCPCS: 36415; 74176; 80053; 80061; 81001; 83605; 83690; 84484; 85025; 87040; 87086; 96365; 96368; 96375; 99285; J0696; J2270; J2405; J3490; J7030; G0378

== ENCOUNTER 2023-01-06 04:02 | Emergency (ER) | payer MEDICAID ==
[~2023-01-06] VITALS: Ht 188 cm; Wt 73.7 kg
[~2023-01-06 04:02] MED LIST changes: +BACDST PO; +CIPR500T4 PO
[2023-01-06 04:05] VITALS: BP 125/81; PULSE 79; RESP 18; O2SAT 99
== END 2023-01-06 06:02 | disposition home or self-care (01) ==
LOC: ER 04:02
DX: G89.29 Other chronic pain (principal); R10.9 Unspecified abdominal pain; Z59.00 Homelessness unspecified; Z87.442 Personal history of urinary calculi

== ENCOUNTER 2023-02-20 05:08 | Inpatient (IN) | payer MEDICAID ==
[~2023-02-20] VITALS: Ht 188 cm; Wt 80.2 kg
[2023-02-20 06:35] LABS: Basophils # (auto) 0 10 ^3/uL (0-0.2); Basophils % (auto) 0.5 % (0.0-2.0); Eosinophils # (auto) 0.2 10 ^3/uL (0-0.8); Eosinophils % (auto) 5.3 % (0.0-7.0); Hematocrit 37.1 % (41.0-53.0); Hemoglobin 12.3 g/dL (13.5-17.5); Lymphocytes # (auto) 0.7 10 ^3/uL (0.4-5.4); Lymphocytes % (auto) 17.2 % (10.0-50.0); Mean Corpuscular Hemoglobin 27.9 pg (28.0-32.0); Mean Corpuscular Hgb Conc. 33.1 g/dL (32.0-36.0); Mean Corpuscular Volume 84.5 fL (80.0-100.0); Monocytes # (auto) 0.3 10 ^3/uL (0-1.3); Monocytes % (auto) 8.2 % (0.0-12.0); Neutrophils # (auto) 2.9 10 ^3/uL (1.6-8.6); Neutrophils % (auto) 68.8 % (37.0-80.0); Nucleated Red Blood Cells % 0.1 %; Red Blood Cells 4.39 10^6/uL (4.5-5.90); Red Cell Distribution Width 15.1 % (11.8-14.3); White Blood Cell 4.2 10^3/uL (4.4-10.8)
[2023-02-20 06:47] LABS: Alanine Aminotransferase 61 U/L (7-40); Alkaline Phosphatase 163 U/L (46-116); Anion Gap 10 (5-15); Aspartate Aminotransferase 34 U/L (13-40); Blood Urea Nitrogen 11 mg/dL (9-23); Calcium 9.6 mg/dL (8.7-10.4); Carbon Dioxide 21 mmol/L (20-30); Chloride 105 mmol/L (98-107); Glucose 105 mg/dL (74-106); Potassium 3.1 mmol/L (3.5-5.1); Sodium 136 mmol/L (136-145)
[2023-02-20 06:48] LABS: Albumin 4.9 g/dL (3.2-4.8); Bilirubin, Total 0.5 mg/dL (0.2-1.0); Total Protein 7.7 g/dL (5.7-8.2)
[2023-02-20 07:13] LABS: Urine Bacteria FEW /hpf (None Seen); Urine Blood 2+ /uL (Negative); Urine Clarity CLOUDY (Clear); Urine Color Yellow (Yellow); Urine Hyaline Cast FEW /lpf (0 - 2); Urine Protein, UAD 1+ (Negative); Urine Specific Gravity 1.017 (1.001-1.035); Urine Urobilinogen Normal (Negative); Urine WBC 1075 /hpf (0 - 3); Urine WBC Clumps PRESENT /hpf (None Seen)
[2023-02-20] MEDS ORDERED: CEFTRIAXONE SODIUM 2 GM in D5W 5% 100 ML IV ONE (07:45)
[2023-02-20] MEDS ORDERED: POTASSIUM EFFERVESENT TAB 25 MEQ PO ONE (07:45)
[2023-02-20] MEDS ORDERED: SODIUM CHLORIDE 0.9% 1,000 ML IV ONE (07:45)
[2023-02-20] MEDS: SODIUM CHLORIDE 0.9% 1,000 ML IV SCH ×2 (11:03→19:28)
[2023-02-20 20:10] VITALS: PULSE 68; RESP 16; O2SAT 96
[2023-02-20] MEDS: ONDANSETRON HCL 4 MG/2 ML VIAL IV PRN (20:12)
[2023-02-20] MEDS: MORPHINE SULFATE INJ 2 MG/ml SYRG IV PRN (20:32)
[2023-02-20 22:30] VITALS: BP 119/72; PULSE 63; RESP 18; O2SAT 95
[2023-02-21] VITALS (8 sets, daily range): BP systolic 94–119; BP diastolic 54–72; PULSE 56–82; RESP 14–16; TEMP 36.8; O2SAT 96–100
[2023-02-21] MEDS: ONDANSETRON HCL 4 MG/2 ML VIAL IV PRN ×5 (00:40→20:18)
[2023-02-21] MEDS: MORPHINE SULFATE INJ 2 MG/ml SYRG IV PRN ×5 (00:41→20:19)
[2023-02-21] MEDS: CIPROFLOXACIN 400MG/200ML 200 ML IV SCH ×3 (00:42→22:07)
[2023-02-21] MEDS: SODIUM CHLORIDE 0.9% 1,000 ML IV SCH ×3 (00:42→20:21)
[2023-02-21 07:18] LABS: Basophils # (auto) 0 10 ^3/uL (0-0.2); Basophils % (auto) 0.5 % (0.0-2.0); Eosinophils # (auto) 0.3 10 ^3/uL (0-0.8); Eosinophils % (auto) 5.3 % (0.0-7.0); Hematocrit 34.9 % (41.0-53.0); Hemoglobin 11.2 g/dL (13.5-17.5); Lymphocytes # (auto) 0.9 10 ^3/uL (0.4-5.4); Lymphocytes % (auto) 17.8 % (10.0-50.0); Mean Corpuscular Hemoglobin 27.3 pg (28.0-32.0); Mean Corpuscular Hgb Conc. 32.2 g/dL (32.0-36.0); Mean Corpuscular Volume 84.7 fL (80.0-100.0); Monocytes # (auto) 0.4 10 ^3/uL (0-1.3); Monocytes % (auto) 7.2 % (0.0-12.0); Neutrophils # (auto) 3.4 10 ^3/uL (1.6-8.6); Neutrophils % (auto) 69.2 % (37.0-80.0); Nucleated Red Blood Cells % 0.2 %; Red Blood Cells 4.12 10^6/uL (4.5-5.90); Red Cell Distribution Width 15.2 % (11.8-14.3); White Blood Cell 4.9 10^3/uL (4.4-10.8)
[2023-02-21 07:38] LABS: Alanine Aminotransferase 46 U/L (7-40); Albumin 3.6 g/dL (3.2-4.8); Alkaline Phosphatase 116 U/L (46-116); Anion Gap 7 (5-15); Aspartate Aminotransferase 24 U/L (13-40); BUN/Creatinine Ratio 9.6 (10.0-20.0); Blood Urea Nitrogen 15 mg/dL (9-23); Calcium 8.5 mg/dL (8.5-10.1); Carbon Dioxide 22 mmol/L (20-30); Chloride 109 mmol/L (98-107); Glucose 92 mg/dL (74-106); Potassium 3.3 mmol/L (3.5-5.1); Sodium 138 mmol/L (136-145)
[2023-02-21 07:39] LABS: Bilirubin, Total 0.3 mg/dL (0.2-1.0); Total Protein 5.8 g/dL (5.7-8.2)
[2023-02-21] MEDS ORDERED: fentaNYL CITRATE 100 MCG/2 ML VL ONE (15:50)
[2023-02-21] MEDS ORDERED: MIDAZOLAM HCL 2MG/2ML 2ml VIAL (1mg/ml) ONE (15:52)
[2023-02-21] MEDS ORDERED: ONDANSETRON HCL 4 MG/2 ML VIAL IV PRN (16:00)
[2023-02-21] MEDS ORDERED: HYDROmorphone HCL 2 MG/ML VL/or syr IV PRN (16:00)
[2023-02-21] MEDS ORDERED: MEPERIDINE HCL (25 MG/ML) 1ML VIAL IV PRN (16:00)
[2023-02-21] MEDS ORDERED: ceFAZolin 1GM/50ML 100 ML IV ONE (17:03)
[2023-02-21] MEDS ORDERED: ceFAZolin 1GM/50ML 50 ML IV ONE (17:05)
[2023-02-22] MEDS: ONDANSETRON HCL 4 MG/2 ML VIAL IV PRN (00:23)
[2023-02-22] MEDS: MORPHINE SULFATE INJ 2 MG/ml SYRG IV PRN ×2 (00:24→05:12)
[2023-02-22 05:00] VITALS: BP 109/69; PULSE 55; RESP 16; TEMP 97.9; O2SAT 99
[2023-02-22] MEDS: SODIUM CHLORIDE 0.9% 1,000 ML IV SCH ×3 (05:16→21:20)
[2023-02-22 07:30] VITALS: TEMP 36.6
[2023-02-22 09:00] VITALS: BP 102/64; PULSE 64; RESP 20; TEMP 99.1; O2SAT 94
[2023-02-22] MEDS: CIPROFLOXACIN 400MG/200ML 200 ML IV SCH (10:00)
[2023-02-22 13:00] VITALS: BP 107/64; PULSE 84; RESP 20; TEMP 98.4; O2SAT 95
[2023-02-22] MEDS ORDERED: CIPROFLOXACIN HCL 500 MG TAB PO ONE (13:00)
[2023-02-22] MEDS ORDERED: NITROFURANTOIN 100 mg CAP PO ONE (13:15)
[2023-02-22] MEDS: HYDROcodone-ACET 5/325MG TAB PO PRN ×2 (15:39→23:41)
[2023-02-22 17:00] VITALS: BP 128/87; PULSE 62; RESP 18; TEMP 98; O2SAT 99
[2023-02-22] MEDS: NITROFURANTOIN 100 mg CAP PO SCH (21:46)
[2023-02-22] MEDS: CIPROFLOXACIN HCL 500 MG TAB PO SCH (21:47)
[2023-02-22 22:00] VITALS: BP 111/75; PULSE 94; RESP 20; TEMP 98.8; O2SAT 99
[2023-02-23] VITALS (7 sets, daily range): BP systolic 101–116; BP diastolic 50–77; PULSE 63–89; RESP 18–20; TEMP 36.8; O2SAT 94–99
[2023-02-23] MEDS: SODIUM CHLORIDE 0.9% 1,000 ML IV SCH (05:04)
[2023-02-23] MEDS: HYDROcodone-ACET 5/325MG TAB PO PRN ×2 (08:12→16:40)
[2023-02-23] MEDS: NITROFURANTOIN 100 mg CAP PO SCH (09:26)
[2023-02-23] MEDS: CIPROFLOXACIN HCL 500 MG TAB PO SCH (09:26)
[2023-02-23 14:14] LABS: Basophils # (auto) 0 10 ^3/uL (0-0.2); Basophils % (auto) 0.8 % (0.0-2.0); Eosinophils # (auto) 0.2 10 ^3/uL (0-0.8); Eosinophils % (auto) 6.4 % (0.0-7.0); Hemoglobin 12.5 g/dL (13.5-17.5); Lymphocytes # (auto) 0.6 10 ^3/uL (0.4-5.4); Lymphocytes % (auto) 24.6 % (10.0-50.0); Mean Corpuscular Hemoglobin 27.6 pg (28.0-32.0); Mean Corpuscular Hgb Conc. 32.2 g/dL (32.0-36.0); Mean Corpuscular Volume 85.6 fL (80.0-100.0); Monocytes # (auto) 0.3 10 ^3/uL (0-1.3); Monocytes % (auto) 10.9 % (0.0-12.0); Neutrophils # (auto) 1.4 10 ^3/uL (1.6-8.6); Neutrophils % (auto) 57.3 % (37.0-80.0); Nucleated Red Blood Cells % 0.2 %; Red Blood Cells 4.55 10^6/uL (4.5-5.90); Red Cell Distribution Width 15.8 % (11.8-14.3); White Blood Cell 2.5 10^3/uL (4.4-10.8)
[2023-02-23 14:24] LABS: Chloride 109 mmol/L (98-107); Potassium 3.2 mmol/L (3.5-5.1); Sodium 141 mmol/L (136-145)
[2023-02-23 14:25] LABS: Anion Gap 7 (5-15); Calcium 9.3 mg/dL (8.5-10.1); Carbon Dioxide 25 mmol/L (20-30)
[2023-02-23 14:30] LABS: BUN/Creatinine Ratio 6.3 (10.0-20.0); Blood Urea Nitrogen 9 mg/dL (9-23); Glucose 83 mg/dL (74-106)
[2023-02-23] MEDS ORDERED: POTASSIUM EFFERVESENT TAB 25 MEQ PO ONE (14:30)
== END 2023-02-23 18:00 | disposition home or self-care (01) | DRG 466 ==
LOC: ER 05:08 → OVERFLOW 10:50 → WEST WING 22:18
PROVIDERS: ADMIT Nurse Practitioner Family; ATTEND Internal Medicine
PROC: 0TP98DZ Removal of Intraluminal Device from Ureter, Via Natural or Artificial Opening Endoscopic (ICD-10-PCS; principal; 2023-02-21 16:43)
DX: T83.012A Breakdown (mechanical) of nephrostomy catheter, initial encounter (principal); N17.9 Acute kidney failure, unspecified; N13.6 Pyonephrosis; T83.592A Infection and inflammatory reaction due to indwelling ureteral stent, initial encounter; B95.2 Enterococcus as the cause of diseases classified elsewhere; D64.9 Anemia, unspecified; G89.29 Other chronic pain; Y73.2 Prosthetic and other implants, materials and accessory gastroenterology and urology devices associated with adverse incidents; E87.6 Hypokalemia; F20.9 Schizophrenia, unspecified; N18.30 Chronic kidney disease, stage 3 unspecified; Z59.00 Homelessness unspecified; Z80.0 Family history of malignant neoplasm of digestive organs; Z82.49 Family history of ischemic heart disease and other diseases of the circulatory system; Z85.038 Personal history of other malignant neoplasm of large intestine; Z87.442 Personal history of urinary calculi; Z91.52 Personal history of nonsuicidal self-harm; Z93.2 Ileostomy status; Z93.3 Colostomy status; Y92.89 Other specified places as the place of occurrence of the external cause
CPT/HCPCS: 36415; 74018; 74176; 76000; 80048; 80053; 81001; 83690; 85025; 87086; 87088; 87186; G0378; J0690; J0696; J2250; J2405; J7060

== ENCOUNTER 2023-02-26 02:18 | Emergency (ER) | payer MEDICAID ==
[~2023-02-26] VITALS: Ht 188 cm; Wt 73.9 kg
[~2023-02-26 02:18] MED LIST changes: -BACDST PO; -CEPH250C PO; -HYDR-4798 PO; -HYDR-4902 PO; -MORP30CA31 PO
[2023-02-26 02:42] VITALS: BP 125/88; PULSE 95; RESP 17; O2SAT 97
[2023-02-26 03:27] LABS: Basophils # (auto) 0 10 ^3/uL (0-0.2); Basophils % (auto) 0.7 % (0.0-2.0); Eosinophils # (auto) 0.2 10 ^3/uL (0-0.8); Eosinophils % (auto) 5.2 % (0.0-7.0); Hematocrit 39.1 % (41.0-53.0); Hemoglobin 12.4 g/dL (13.5-17.5); Lymphocytes # (auto) 0.6 10 ^3/uL (0.4-5.4); Lymphocytes % (auto) 18.4 % (10.0-50.0); Mean Corpuscular Hemoglobin 27.3 pg (28.0-32.0); Mean Corpuscular Hgb Conc. 31.7 g/dL (32.0-36.0); Monocytes # (auto) 0.4 10 ^3/uL (0-1.3); Monocytes % (auto) 11.1 % (0.0-12.0); Neutrophils # (auto) 2.3 10 ^3/uL (1.6-8.6); Neutrophils % (auto) 64.6 % (37.0-80.0); Nucleated Red Blood Cells % 0.2 %; Red Blood Cells 4.54 10^6/uL (4.5-5.90); Red Cell Distribution Width 16.2 % (11.8-14.3); White Blood Cell 3.5 10^3/uL (4.4-10.8)
[2023-02-26 03:35] LABS: Alanine Aminotransferase 46 U/L (7-40); Albumin 4.7 g/dL (3.2-4.8); Alkaline Phosphatase 141 U/L (46-116); Anion Gap 8 (5-15); Aspartate Aminotransferase 44 U/L (13-40); BUN/Creatinine Ratio 6.8 (10.0-20.0); Blood Urea Nitrogen 10 mg/dL (9-23); Calcium 9.2 mg/dL (8.7-10.4); Carbon Dioxide 21 mmol/L (20-30); Chloride 109 mmol/L (98-107); Glucose 98 mg/dL (74-106); Lipase 42 U/L (12-53); Sodium 138 mmol/L (136-145)
[2023-02-26 03:36] LABS: Bilirubin, Total 0.5 mg/dL (0.2-1.0); Total Protein 7.5 g/dL (5.7-8.2)
[2023-02-26 03:43] LABS: Urine Bacteria NONE SEEN /hpf (None Seen); Urine Blood Negative /uL (Negative); Urine Clarity Clear (Clear); Urine Color Yellow (Yellow); Urine Hyaline Cast FEW /lpf (0 - 2); Urine Mucus FEW (None Seen); Urine Protein, UAD 1+ (Negative); Urine Specific Gravity 1.022 (1.001-1.035); Urine Urobilinogen Normal (Negative); Urine WBC 73 /hpf (0 - 3)
[2023-02-26] MEDS ORDERED: HYDROcodone-ACET 7.5/325MG TAB PO ONE (06:45)
[2023-02-26] MEDS ORDERED: BACDST PO (07:17)
[2023-02-26] MEDS ORDERED: POTASSIUM EFFERVESENT TAB 25 MEQ PO ONE (07:30)
[2023-02-26] MEDS ORDERED: cefTRIAXone SOD 1,000 MG VL IM ONE (07:30)
== END 2023-02-26 09:00 | disposition left against medical advice (07) ==
LOC: ER 02:18
DX: N39.0 Urinary tract infection, site not specified (principal); E87.6 Hypokalemia; N18.9 Chronic kidney disease, unspecified; Z86.2 Personal history of diseases of the blood and blood-forming organs and certain disorders involving the immune mechanism; Z59.00 Homelessness unspecified; Z79.2 Long term (current) use of antibiotics; Z79.899 Other long term (current) drug therapy
CPT/HCPCS: 36415; 80053; 81001; 83690; 85025; J0696

== ENCOUNTER 2023-03-01 03:39 | Inpatient (IN) | payer MEDICAID ==
[~2023-03-01] VITALS: Ht 188 cm; Wt 72.0 kg
[~2023-03-01 03:39] MED LIST changes: +BACDST PO
[2023-03-01 04:37] LABS: Basophils # (auto) 0 10 ^3/uL (0-0.2); Basophils % (auto) 0.5 % (0.0-2.0); Eosinophils # (auto) 0.2 10 ^3/uL (0-0.8); Eosinophils % (auto) 5.7 % (0.0-7.0); Hematocrit 37.6 % (41.0-53.0); Hemoglobin 12.2 g/dL (13.5-17.5); Lymphocytes # (auto) 0.8 10 ^3/uL (0.4-5.4); Lymphocytes % (auto) 27.3 % (10.0-50.0); Mean Corpuscular Hemoglobin 27.5 pg (28.0-32.0); Mean Corpuscular Hgb Conc. 32.3 g/dL (32.0-36.0); Monocytes # (auto) 0.3 10 ^3/uL (0-1.3); Monocytes % (auto) 9.2 % (0.0-12.0); Neutrophils # (auto) 1.7 10 ^3/uL (1.6-8.6); Neutrophils % (auto) 57.3 % (37.0-80.0); Red Blood Cells 4.43 10^6/uL (4.5-5.90); Red Cell Distribution Width 15.9 % (11.8-14.3)
[2023-03-01 05:00] LABS: Alanine Aminotransferase 38 U/L (7-40); Albumin 4.5 g/dL (3.2-4.8); Alkaline Phosphatase 127 U/L (46-116); Anion Gap 9 (5-15); Aspartate Aminotransferase 37 U/L (13-40); BUN/Creatinine Ratio 8.1 (10.0-20.0); Blood Urea Nitrogen 12 mg/dL (9-23); Carbon Dioxide 23 mmol/L (20-30); Chloride 105 mmol/L (98-107); Glucose 91 mg/dL (74-106); Lipase 41 U/L (12-53); Potassium 2.7 mmol/L (3.5-5.1); Sodium 137 mmol/L (136-145)
[2023-03-01 05:01] LABS: Bilirubin, Total 0.4 mg/dL (0.2-1.0); Total Protein 7.3 g/dL (5.7-8.2)
[2023-03-01 05:16] LABS: Urine Bacteria FEW /hpf (None Seen); Urine Blood TRACE /uL (Negative); Urine Clarity HAZY (Clear); Urine Color Yellow (Yellow); Urine Hyaline Cast FEW /lpf (0 - 2); Urine Protein, UAD 1+ (Negative); Urine Urobilinogen Normal (Negative); Urine WBC 779 /hpf (0 - 3); Urine WBC Clumps PRESENT /hpf (None Seen)
[2023-03-01] MEDS ORDERED: POTASSIUM EFFERVESENT TAB 25 MEQ PO ONE (08:45)
[2023-03-01] MEDS ORDERED: cefTRIAXone 1GM/50ML D5W 50 ML IV ONE (08:45)
[2023-03-01] MEDS ORDERED: KETOROLAC TROMETH 30 MG/ML 1ML VIAL IV ONE (08:45)
[2023-03-01] MEDS ORDERED: SODIUM CHLORIDE 0.9% 1,000 ML IV ONE (08:45)
[2023-03-01] MEDS ORDERED: MORPHINE SULFATE INJ 2 MG/ml SYRG IV ONE (09:15)
[2023-03-01] MEDS ORDERED: ONDANSETRON HCL 4 MG/2 ML VIAL IV ONE (09:15)
[2023-03-01] MEDS ORDERED: SODIUM CHLORIDE 0.9% 1,000 ML IV SCH (09:45)
[2023-03-01] MEDS ORDERED: ACETAMINOPHEN 325 MG TAB PO PRN (09:45)
[2023-03-01] MEDS ORDERED: HYDROcodone-ACET 5/325MG TAB PO PRN (09:45)
[2023-03-01] MEDS ORDERED: ENOXAPARIN SOD 40 MG/0.4 ML SYRINGE SC SCH (10:00)
[2023-03-01 10:32] VITALS: TEMP 97.4; O2SAT 99
[2023-03-01 10:57] VITALS: BP 136/78; PULSE 87; RESP 16
[2023-03-02] MEDS ORDERED: cefTRIAXone 1GM/50ML D5W 50 ML IV SCH (09:00)
== END 2023-03-01 14:00 | disposition left against medical advice (07) | DRG 463 ==
LOC: ER 03:39 → OVERFLOW 09:41
PROVIDERS: ADMIT Nurse Practitioner Family; ATTEND Nurse Practitioner Family
DX: N13.6 Pyonephrosis (principal); E87.6 Hypokalemia; Z53.29 Procedure and treatment not carried out because of patient's decision for other reasons; N28.9 Disorder of kidney and ureter, unspecified; I10 Essential (primary) hypertension; F41.9 Anxiety disorder, unspecified; Z59.00 Homelessness unspecified; Z82.49 Family history of ischemic heart disease and other diseases of the circulatory system; Z85.038 Personal history of other malignant neoplasm of large intestine; Z87.442 Personal history of urinary calculi; Z93.3 Colostomy status
CPT/HCPCS: 36415; 74176; 80053; 81001; 83690; 85025; 87086; 87088; 87186; 96365; 96375; G0378; J0696; J2405

== ENCOUNTER 2023-09-10 01:27 | Emergency (ER) | payer MEDICAID ==
[~2023-09-10] VITALS: Ht 188 cm; Wt 77.6 kg
[~2023-09-10 01:27] MED LIST changes: +CEPH500C PO; +ZOFR4T PO
[2023-09-10 01:45] VITALS: BP 114/78; PULSE 83; RESP 16; O2SAT 97
== END 2023-09-10 03:18 | disposition home or self-care (01) ==
LOC: ER 01:27
DX: G89.29 Other chronic pain (principal); R10.11 Right upper quadrant pain; F41.9 Anxiety disorder, unspecified; N18.9 Chronic kidney disease, unspecified; Z86.2 Personal history of diseases of the blood and blood-forming organs and certain disorders involving the immune mechanism; Z87.442 Personal history of urinary calculi; Z98.890 Other specified postprocedural states; Z85.038 Personal history of other malignant neoplasm of large intestine; Z90.89 Acquired absence of other organs; Z59.00 Homelessness unspecified

== ENCOUNTER 2023-10-03 02:37 | Inpatient (IN) | payer MEDICAID ==
[~2023-10-03] VITALS: Ht 188 cm; Wt 81.5 kg
[2023-10-03 03:20] LABS: Urine Bacteria None Seen /hpf (None Seen)
[2023-10-03 03:28] LABS: Urine Blood 1+ /uL (Negative); Urine Clarity Clear (Clear); Urine Color Yellow (Yellow); Urine Protein, UAD 1+ (Negative); Urine Specific Gravity 1.028 (1.001-1.035); Urine Urobilinogen Normal (Negative); Urine WBC <1 /hpf (0 - 3)
[2023-10-03 03:46] LABS: Basophils # (auto) 0 10 ^3/uL (0-0.2); Basophils % (auto) 0.8 % (0.0-2.0); Eosinophils # (auto) 0.4 10 ^3/uL (0-0.8); Eosinophils % (auto) 8.5 % (0.0-7.0); Hematocrit 43.6 % (41.0-53.0); Hemoglobin 14.2 g/dL (13.5-17.5); Lymphocytes # (auto) 1.2 10 ^3/uL (0.4-5.4); Lymphocytes % (auto) 24.2 % (10.0-50.0); Mean Corpuscular Hemoglobin 29.6 pg (28.0-32.0); Mean Corpuscular Hgb Conc. 32.7 g/dL (32.0-36.0); Mean Corpuscular Volume 90.5 fL (80.0-100.0); Monocytes # (auto) 0.3 10 ^3/uL (0-1.3); Monocytes % (auto) 6.9 % (0.0-12.0); Neutrophils # (auto) 2.9 10 ^3/uL (1.6-8.6); Neutrophils % (auto) 59.6 % (37.0-80.0); Nucleated Red Blood Cells % 0.2 %; Red Blood Cells 4.81 10^6/uL (4.5-5.90); Red Cell Distribution Width 13.5 % (11.8-14.3); White Blood Cell 4.8 10^3/uL (4.4-10.8)
[2023-10-03 04:18] LABS: Alanine Aminotransferase 55 U/L (7-40); Albumin 4.6 g/dL (3.2-4.8); Alkaline Phosphatase 114 U/L (46-116); Anion Gap 10 (5-15); Aspartate Aminotransferase 43 U/L (13-40); BUN/Creatinine Ratio 6.7 (10.0-20.0); Blood Urea Nitrogen 14 mg/dL (9-23); Calcium 9.6 mg/dL (8.5-10.1); Carbon Dioxide 17 mmol/L (20-30); Chloride 112 mmol/L (98-107); Glucose 98 mg/dL (74-106); Potassium 3.6 mmol/L (3.5-5.1); Sodium 139 mmol/L (136-145)
[2023-10-03 04:19] LABS: Bilirubin, Total 0.6 mg/dL (0.2-1.0); Total Protein 7.3 g/dL (5.7-8.2)
[2023-10-03 05:45] LABS: Lipase 52 U/L (12-53)
[2023-10-03 06:00] VITALS: PULSE 57; RESP 16; O2SAT 95
[2023-10-03] MEDS: HYDROcodone-ACET 10/325MG TAB PO ONE (06:42)
[2023-10-03] MEDS: ASPirin 81 mg TAB PO ONE (07:07)
[2023-10-03] MEDS ORDERED: DOCUSATE SOD 100 MG CAP PO PRN (09:30)
[2023-10-03] MEDS ORDERED: NITROGLYCERIN 0.4 MG SL TAB SL PRN (09:30)
[2023-10-03] MEDS: SODIUM CHLORIDE 0.9% 1,000 ML IV SCH (09:30)
[2023-10-03 10:33] LABS: Erythrocyte Sedimentation Rate 2 mm/hr (0-20)
[2023-10-03] MEDS: MORPHINE SULFATE INJ 2 MG/ml SYRG IV PRN (10:38)
[2023-10-03] MEDS: ONDANSETRON HCL 4 MG/2 ML VIAL IV PRN (10:38)
[2023-10-03] MEDS: IBUPROFEN 600 MG TAB PO SCH (12:00)
[2023-10-03 12:59] VITALS: BP 102/65; PULSE 65; RESP 18; TEMP 97.7; O2SAT 96
[2023-10-03 13:00] VITALS: BP 102/65; PULSE 70; RESP 18; TEMP 97.7; O2SAT 96
[2023-10-03] MEDS: HYDROcodone-ACET 5/325MG TAB PO PRN (16:37)
[2023-10-03 17:00] VITALS: BP 111/69; PULSE 54; RESP 20; TEMP 97.8; O2SAT 92
[2023-10-03 19:30] VITALS: PULSE 91; RESP 16; O2SAT 98
[2023-10-03 21:00] VITALS: BP 106/63; PULSE 59; RESP 16; TEMP 97.9; O2SAT 98
[2023-10-04] VITALS (8 sets, daily range): BP systolic 97–110; BP diastolic 62–75; PULSE 52–93; RESP 17–18; TEMP 97.7–98.3; O2SAT 18–99
[2023-10-04 07:48] LABS: Alanine Aminotransferase 42 U/L (7-40); Albumin 3.7 g/dL (3.2-4.8); Aspartate Aminotransferase 30 U/L (13-40); BUN/Creatinine Ratio 6.4 (10.0-20.0); Bilirubin, Total 0.7 mg/dL (0.2-1.0); Blood Urea Nitrogen 12 mg/dL (9-23); Chloride 112 mmol/L (98-107); Glucose 78 mg/dL (74-106); Potassium 4.3 mmol/L (3.5-5.1); Sodium 136 mmol/L (136-145); Total Protein 6.4 g/dL (5.7-8.2)
[2023-10-04 07:51] LABS: Anion Gap 10 (5-15); Calcium 9.2 mg/dL (8.5-10.1); Carbon Dioxide 14 mmol/L (20-30)
[2023-10-04 07:57] LABS: Alkaline Phosphatase 108 U/L (46-116)
[2023-10-04 08:55] LABS: Basophils # (auto) 0 10 ^3/uL (0-0.2); Basophils % (auto) 0.5 % (0.0-2.0); Eosinophils # (auto) 0.3 10 ^3/uL (0-0.8); Eosinophils % (auto) 10.2 % (0.0-7.0); Hematocrit 41.1 % (41.0-53.0); Hemoglobin 13.3 g/dL (13.5-17.5); Lymphocytes # (auto) 0.8 10 ^3/uL (0.4-5.4); Mean Corpuscular Hemoglobin 29.7 pg (28.0-32.0); Mean Corpuscular Hgb Conc. 32.2 g/dL (32.0-36.0); Mean Corpuscular Volume 92.2 fL (80.0-100.0); Monocytes # (auto) 0.2 10 ^3/uL (0-1.3); Monocytes % (auto) 7.4 % (0.0-12.0); Neutrophils # (auto) 1.8 10 ^3/uL (1.6-8.6); Neutrophils % (auto) 57.9 % (37.0-80.0); Nucleated Red Blood Cells % 0.2 %; Red Blood Cells 4.46 10^6/uL (4.5-5.90); Red Cell Distribution Width 13.7 % (11.8-14.3); White Blood Cell 3.2 10^3/uL (4.4-10.8)
[2023-10-05] VITALS (8 sets, daily range): BP systolic 88–120; BP diastolic 47–79; PULSE 53–67; RESP 16–19; TEMP 97.8–98.7; O2SAT 96–100
[2023-10-05] MEDS ORDERED: HYDR-4902 PO (13:02)
[2023-10-05] MEDS ORDERED: MORP30TA PO (13:02)
[2023-10-06] VITALS (7 sets, daily range): BP systolic 86–113; BP diastolic 47–70; PULSE 58–68; RESP 18–20; TEMP 97.6–98.3; O2SAT 94–100
[2023-10-06] MEDS: COLCHICINE 0.6 MG CAP PO SCH (15:58)
[2023-10-06] MEDS: ASPirin 325 MG TAB PO SCH (15:58)
[2023-10-07 01:00] VITALS: BP 96/62; PULSE 66; RESP 17; TEMP 98.1; O2SAT 97
[2023-10-07 05:00] VITALS: BP 91/56; PULSE 60; RESP 17; TEMP 98.1; O2SAT 97
[2023-10-07 08:00] VITALS: PULSE 61; RESP 17; O2SAT 99
[2023-10-07 08:42] VITALS: BP 102/63; PULSE 61; RESP 17; TEMP 98.4; O2SAT 96
[2023-10-07] MEDS ORDERED: ASPI-717 PO ×2 (11:20)
[2023-10-07] MEDS ORDERED: HYDR-4902 PO ×2 (11:20)
[2023-10-07] MEDS ORDERED: COLC1CAP PO ×2 (11:20)
== END 2023-10-07 16:08 | disposition home or self-care (01) | DRG 207 ==
LOC: ER 02:37 → OVERFLOW 09:42 → WEST WING 12:24
PROVIDERS: ADMIT Nurse Practitioner Family; ATTEND Nurse Practitioner Acute Care
DX: I30.9 Acute pericarditis, unspecified (principal); N17.0 Acute kidney failure with tubular necrosis; E87.20 Acidosis, unspecified; F41.9 Anxiety disorder, unspecified; N20.0 Calculus of kidney; G89.4 Chronic pain syndrome; N18.9 Chronic kidney disease, unspecified; F20.9 Schizophrenia, unspecified; R74.01 Elevation of levels of liver transaminase levels; Z82.49 Family history of ischemic heart disease and other diseases of the circulatory system; Z93.2 Ileostomy status; Z93.3 Colostomy status; Z85.038 Personal history of other malignant neoplasm of large intestine; Z87.19 Personal history of other diseases of the digestive system; Z80.0 Family history of malignant neoplasm of digestive organs; Z79.899 Other long term (current) drug therapy
CPT/HCPCS: 36415; 71045; 80053; 81001; 83690; 84484; 85025; 85652; 86141; 87081; 93005; 93306; G0378; J2405

== ENCOUNTER 2023-10-10 02:58 | Emergency (ER) | payer MEDICAID ==
[~2023-10-10] VITALS: Ht 188 cm; Wt 6.2 kg
[~2023-10-10 02:58] MED LIST changes: +ASPI-717 PO; -BACDST PO; -CEPH500C PO; -CIPR500T4 PO; +COLC1CAP PO; +HYDR-4902 PO; +MORP30TA PO; -ZOFR4T PO
[2023-10-10 03:42] VITALS: BP 108/79; PULSE 89; RESP 14; O2SAT 98
[2023-10-10 04:24] LABS: Urine Bacteria None Seen /hpf (None Seen)
[2023-10-10 04:36] LABS: Urine Blood Negative /uL (Negative); Urine Clarity Clear (Clear); Urine Color Yellow (Yellow); Urine Protein, UAD 1+ (Negative); Urine Specific Gravity 1.034 (1.001-1.035); Urine Urobilinogen Normal (Negative); Urine WBC 1 /hpf (0 - 3)
[2023-10-10 05:10] LABS: Basophils # (auto) 0 10 ^3/uL (0-0.2); Basophils % (auto) 0.4 % (0.0-2.0); Eosinophils # (auto) 0.2 10 ^3/uL (0-0.8); Eosinophils % (auto) 4.1 % (0.0-7.0); Hematocrit 43.8 % (41.0-53.0); Hemoglobin 13.7 g/dL (13.5-17.5); Lymphocytes # (auto) 0.9 10 ^3/uL (0.4-5.4); Lymphocytes % (auto) 18.5 % (10.0-50.0); Mean Corpuscular Hemoglobin 29.9 pg (28.0-32.0); Mean Corpuscular Hgb Conc. 31.3 g/dL (32.0-36.0); Mean Corpuscular Volume 95.7 fL (80.0-100.0); Monocytes # (auto) 0.3 10 ^3/uL (0-1.3); Monocytes % (auto) 6.3 % (0.0-12.0); Neutrophils # (auto) 3.5 10 ^3/uL (1.6-8.6); Neutrophils % (auto) 70.7 % (37.0-80.0); Nucleated Red Blood Cells % 0.2 %; Red Blood Cells 4.58 10^6/uL (4.5-5.90); Red Cell Distribution Width 13.6 % (11.8-14.3); White Blood Cell 4.9 10^3/uL (4.4-10.8)
[2023-10-10 05:29] LABS: Alanine Aminotransferase 55 U/L (7-40); Albumin 4.4 g/dL (3.2-4.8); Alkaline Phosphatase 97 U/L (46-116); Anion Gap 7 (5-15); Aspartate Aminotransferase 47 U/L (13-40); BUN/Creatinine Ratio 5.6 (10.0-20.0); Bilirubin, Total 0.5 mg/dL (0.2-1.0); Blood Urea Nitrogen 12 mg/dL (9-23); Calcium 9.7 mg/dL (8.7-10.4); Carbon Dioxide 18 mmol/L (20-30); Chloride 112 mmol/L (98-107); Glucose 99 mg/dL (74-106); Lipase 46 U/L (12-53); Sodium 137 mmol/L (136-145); Total Protein 7.3 g/dL (5.7-8.2)
== END 2023-10-10 09:15 | disposition left against medical advice (07) ==
LOC: ER 02:58
DX: R10.9 Unspecified abdominal pain (principal); R11.2 Nausea with vomiting, unspecified; G89.4 Chronic pain syndrome; N18.30 Chronic kidney disease, stage 3 unspecified; F20.9 Schizophrenia, unspecified; F41.9 Anxiety disorder, unspecified; F19.10 Other psychoactive substance abuse, uncomplicated; Z86.2 Personal history of diseases of the blood and blood-forming organs and certain disorders involving the immune mechanism; Z87.442 Personal history of urinary calculi; Z85.038 Personal history of other malignant neoplasm of large intestine
CPT/HCPCS: 36415; 80053; 81001; 83690; 85025

== ENCOUNTER 2023-10-22 05:36 | Emergency (ER) | payer MEDICAID ==
[~2023-10-22] VITALS: Ht 188 cm; Wt 77.4 kg
[2023-10-22 07:51] LABS: Urine Amorphous Crystal FEW /hpf (None Seen); Urine Bacteria FEW /hpf (None Seen); Urine Blood TRACE /uL (Negative); Urine Clarity Turbid (Clear); Urine Color Yellow (Yellow); Urine Protein, UAD 1+ (Negative); Urine Urobilinogen Normal (Negative); Urine WBC 4 /hpf (0 - 3)
[2023-10-22] MEDS: METOCLOPRAMIDE HCL 5MG/ml INJ 2ml VIAL IV ONE (08:15)
[2023-10-22 08:54] LABS: Basophils # (auto) 0 10 ^3/uL (0-0.2); Basophils % (auto) 0.3 % (0.0-2.0); Eosinophils # (auto) 0.3 10 ^3/uL (0-0.8); Eosinophils % (auto) 7.8 % (0.0-7.0); Hematocrit 42.4 % (41.0-53.0); Hemoglobin 13.3 g/dL (13.5-17.5); Lymphocytes % (auto) 22.4 % (10.0-50.0); Mean Corpuscular Hgb Conc. 31.4 g/dL (32.0-36.0); Mean Corpuscular Volume 95.8 fL (80.0-100.0); Monocytes # (auto) 0.3 10 ^3/uL (0-1.3); Monocytes % (auto) 6.4 % (0.0-12.0); Neutrophils # (auto) 2.8 10 ^3/uL (1.6-8.6); Neutrophils % (auto) 63.1 % (37.0-80.0); Nucleated Red Blood Cells % 0.1 %; Red Blood Cells 4.43 10^6/uL (4.5-5.90); Red Cell Distribution Width 14.2 % (11.8-14.3); White Blood Cell 4.5 10^3/uL (4.4-10.8)
[2023-10-22] MEDS: SODIUM CHLORIDE 0.9% 500 ML IVB ONE (08:55)
[2023-10-22 09:15] LABS: Alanine Aminotransferase 55 U/L (7-40); Albumin 4.3 g/dL (3.2-4.8); Alkaline Phosphatase 101 U/L (46-116); Anion Gap 6 (5-15); Aspartate Aminotransferase 40 U/L (13-40); BUN/Creatinine Ratio 5.6 (10.0-20.0); Bilirubin, Total 0.5 mg/dL (0.2-1.0); Blood Urea Nitrogen 10 mg/dL (9-23); Calcium 9.1 mg/dL (8.5-10.1); Carbon Dioxide 19 mmol/L (20-30); Chloride 113 mmol/L (98-107); Glucose 90 mg/dL (74-106); Potassium 3.1 mmol/L (3.5-5.1); Sodium 138 mmol/L (136-145); Total Protein 6.6 g/dL (5.7-8.2)
[2023-10-22] MEDS: SODIUM CHLORIDE 0.9% 1,000 ML IV ONE (09:45)
[2023-10-22 10:28] LABS: Lipase 52 U/L (12-53)
[2023-10-22] MEDS ORDERED: TRAM50TA2 PO (10:39)
[2023-10-22] MEDS ORDERED: ZOFR4T PO (10:39)
[2023-10-22 10:51] VITALS: BP 109/72; PULSE 60; RESP 15; TEMP 98.2; O2SAT 99
== END 2023-10-22 10:54 | disposition home or self-care (01) ==
LOC: ER 05:36
DX: R10.13 Epigastric pain (principal); G89.29 Other chronic pain; N18.30 Chronic kidney disease, stage 3 unspecified; E86.0 Dehydration; E87.6 Hypokalemia; F41.9 Anxiety disorder, unspecified; F20.9 Schizophrenia, unspecified; F19.10 Other psychoactive substance abuse, uncomplicated; Z87.442 Personal history of urinary calculi; Z85.038 Personal history of other malignant neoplasm of large intestine; Z86.2 Personal history of diseases of the blood and blood-forming organs and certain disorders involving the immune mechanism; Z90.49 Acquired absence of other specified parts of digestive tract
CPT/HCPCS: 36415; 74176; 80053; 81001; 83690; 83735; 85025; 96361; 96374; 99285; J2765; J7030; J7040

== ENCOUNTER 2024-10-09 01:46 | Inpatient (IN) | payer MEDICAID ==
[~2024-10-09] VITALS: Ht 188 cm; Wt 79.2 kg
[~2024-10-09 01:46] MED LIST changes: +TRAM50TA2 PO; +ZOFR4T PO
--- NOTE | 2024-10-09 02:20 | ED.PDOC ---
GI ASSESSMENT HPI Comments 44-year-old male brought in by self complaining of abdominal pain for the last 4-5 days. 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 Patient states he has been having initially intermittent, now constant upper abdominal pain with associated bouts of nausea and vomiting. Noted also some difficulty with urination. Denies any fever, hematemesis, bloody stool, hematuria or changes in bowel habits. Chief Complaint: Abdominal pain Time Seen by MD: 02:19 Primary Care Provider: PT UNSURE Reviewed Notes: Nurses Notes Allergies: Coded Allergies: NO KNOWN ALLERGIES (Unverified , 06/02/14) Home Meds Active Scripts Tramadol Hcl (Tramadol Hcl) 50 Mg Tab, 50 MG PO BID for 5 Days, #10 TAB Prov:MYRA PA MD 10/22/23 Ondansetron Odt 4MG Tab (ZOFRAN PO) 4 Mg Tb, 4 MG PO QID for 10 Days, #40 TAB ODT TAB-DISSOLVE IN MOUTH, THEN SWALLOW Prov:MYRA PA MD 10/22/23 Colchicine (Colchicine) 0.6 Mg Cap, 0.6 MG PO DAILY for 30 Days, #3 CAP Prov:JOSIE PALMER OPTICAL ADVISOR 10/07/23 Aspirin Buffered (Abel Carb-Mag (Aspirin 325 mg) 1 Tab Tab, 1 TAB PO DAILY for 30 Days, #30 TAB Prov:JOSIE PALMER OPTICAL ADVISOR 10/07/23 Hydrocodone-Acetaminophen (Hydrocodone Bitartrate/AC 5-325 mg) 1 Tab Tab, 1 TAB PO Q6HP PRN for 4 Days, #16 TAB Prov:JOSIE PALMER OPTICAL ADVISOR 10/07/23 Reported Medications Morphine Sulfate (Morphine Sulfate) 30 Mg Tab, 1 TAB PO QID, #120 TAB 10/05/23 Hydrocodone-Acetaminophen (Hydrocodone Bitartrate/AC 5-325 mg) 1 Tab Tab, 1 TAB PO, TAB 10/05/23 Information Source: Patient Mode of Arrival: Ambulatory Timing: Days Duration: Intermittent Quality: Aching Vomitus: Watery Stool: Normal Severity: Moderate Recent: None Recent Hx of: Abdominal Surgery Pain Location: Epigastric Modifying Factors: Nothing Associated sign and symptoms: Nausea, Vomiting, Abdominal Pain Past Medical History PAST MEDICAL HISTORY: Anemia, Anxiety, Cancer, CKF, Kidney Stones, Schizoph mary, UTI'S Surgical History: Denies all surgeries Surgical History (Other): Colostomy Family History Family History: Reviewed,noncontributory to illness, Family hx of Cancer, Family hx of HTN Social History Smoker: Non-Smoker Alcohol: Denies ETOH Use Drugs: Other Lives In: Home Constitutional: denies: chills, diaphoresis, fatigue, fever, malaise, sweats, weakness, others EENTM: denies: blurred vision, double vision, ear bleeding, ear discharge, ear drainage, ear pain, ear ringing, eye pain, eye redness, hearing loss, mouth pain, mouth swelling, nasal discharge, nose bleeding, nose congestion, nose pain, photophobia, tearing, throat pain, throat swelling, voice changes, others Respiratory: denies: cough, hemoptysis, orthopnea, SOB at rest, shortness of breath, SOB with excertion, stridor, wheezing, others Cardiovascular: denies: chest pain, dizzy spells, diaphoresis, Dyspnea on exertion, edema, irregular heart beat, left arm pain, lightheadedness, palpitations, PND, syncope, others Gastrointestinal: reports: abdominal pain, nausea, vomiting; denies: abdomen distended, blood streaked bowels, constipated, diarrhea, dysphagia, difficulty swallowing, hematemesis, melena, poor appetite, poor fluid intake, rectal bleeding, rectal pain, others Genitourinary: denies: burning, dysuria, flank pain, frequency, hematuria, incontinence, penile discharge, penile sore, pain, testicle pain, testicle swelling, urgency, others Neurological: denies: dizziness, fainting, headache, left sided numbness, left sided weakness, numbness, paresthesia, pre-existing deficit, right sided numbness, right sided weakness, seizure, speech problems, tingling, tremors, weakness, others Musculoskeletal: denies: back pain, gout, joint pain, joint swelling, muscle pain, muscle stiffness, neck pain, others Integumetry: denies: bruises, change in color, change in hair/nails, dryness, laceration, lesions, lumps, rash, wounds, others Allergic/Immunocompromised: denies: Difficulty Healing, Frequent Infections, Hives, Itching, others Hematologic/Lymphatic: denies: anemia, blood clots, easy bleeding, easy bruising, swollen glands, others Endocrine: denies: excessive hunger, excessive sweating, excessive thirst, excessive urination, flushing, intolerance to cold, intolerance to heat, unexplained weight gain, unexplained weight loss, others Psychiatric: denies: anxiety, bipolar disorder, depression, hopeless, panic dis order, schizophrenia, sleepless, suicidal, others Physical Exam General Appearance: No Apparent Distress HEENT: Other (Pupils and face symmetric. Moist mucous membranes.) Neck: Full Range of Motion, Normal Inspection Respiratory: Lungs Clear, No Accessory Muscle Use, No Respiratory Distress, Normal Breath Sounds Cardiovascular: No Edema, No JVD Breast Exam: Deferred Gastrointestinal: Diffuse, Soft, Tenderness Genitalia: Deferred Pelvic: Deferred Rectal: Deferred Extremities: Normal inspection, Normal range of motion, Non-tender, No pedal edema Neurologic: Alert, Other (Ambulatory) Cerebellar Function: NOT DONE Reflexes: NOT DONE Skin: Dry, Normal Color, Warm Lymphatic: NOT DONE Was a procedure done? Was a procedure done?: No GI differential Dx Differential Diagnosis: Appendicitis, Diverticular disease, Gastritis/PUD, Gastroenteritis, Ischemic Bowel, Pancreatitis, UTI, Urolithiasis, Dehydration, Electrolyte Imbalance, Food Poisoning, Bacterial, Viral, Hypovolemia, Anemia, Stress Ulcer X-Ray, Labs, Meds, VS Vital Signs Date Time Temp Pulse Resp B/P (MAP) Pulse Ox O2 Delivery O2 Flow Rate FiO2 10/09/24 02:35 98.4 62 18 152/107 (122) 99 98.4 10/09/24 02:10 98.5 86 16 106/80 (89) 96 98.5 Lab Test 10/09/24 02:15 Range/Units White Blood Count 4.0 L 4.4-10.8 10^3/uL Red Blood Count 4.58 4.5-5.90 10^6/uL Hemoglobin 13.6 13.5-17.5 g/dL Hematocrit 41.0 41.0-53.0 % Mean Corpuscular Volume 89.4 80.0-100.0 fL Mean Corpuscular Hemoglobin 29.7 28.0-32.0 pg Mean Corpuscular Hemoglobin Concent 33.2 32.0-36.0 g/dL Red Cell Distribution Width 13.4 11.8-14.3 % Platelet Count 231 140-450 10^3/uL Mean Platelet Volume 7.1 6.9-10.8 fL Neutrophils (%) (Auto) 55.5 37.0-80.0 % Lymphocytes (%) (Auto) 27.5 10.0-50.0 % Monocytes (%) (Auto) 8.6 0.0-12.0 % Eosinophils (%) (Auto) 7.7 H 0.0-7.0 % Basophils (%) (Auto) 0.7 0.0-2.0 % Neutrophils # (Auto) 2.2 1.6-8.6 10 ^3/uL Lymphocytes # (Auto) 1.1 0.4-5.4 10 ^3/uL Monocytes # (Auto) 0.3 0-1.3 10 ^3/uL Eosinophils # (Auto) 0.3 0-0.8 10 ^3/uL Basophils # (Auto) 0 0-0.2 10 ^3/uL Nucleated Red Blood Cells 0.0 % Sodium Level 138 136-145 mmol/L Potassium Level 3.1 L 3.5-5.1 mmol/L Chloride Level 109 H 98-107 mmol/L Carbon Dioxide Level 18 L 20-31 mmol/L Anion Gap 11 5-15 Blood Urea Nitrogen 22 9-23 mg/dL Creatinine 2.40 H 0.700-1.30 mg/dL Glomerular Filtration Rate Calc 33 >90 mL/min BUN/Creatinine Ratio 9.2 L 10.0-20.0 Serum Glucose 105 74-106 mg/dL Calcium Level 9.2 8.7-10.4 mg/dL Total Bilirubin 0.4 0.2-1.0 mg/dL Aspartate Amino Transferase (AST) 36 H <34 U/L Alanine Aminotransferase (ALT) 43 H 7-40 U/L Alkaline Phosphatase 118 H 46-116 U/L Total Protein 7.2 5.7-8.2 g/dL Albumin 4.5 3.2-4.8 g/dL Lipase 64 H 12-53 U/L PROCEDURE(s): ABPL - CT AB PEL WO CON-NO ORAL OR IV REASON: abd pain ORDER NUMBER(s): [id number], ACCESSION NUMBER(s): [id number] Critical finding: Examination: ABPL CLINICAL INDICATION: Abdominal pain. COMPARISON: None. CONTRAST USED: None. TECHNIQUE: A plain CT study of the abdomen and pelvis is performed. The examination was performed with 5 mm thin slices. Multiplanar reconstructions w ere obtained. CT scan done according to ALARA (As Low As Reasonably Achievable). FINDINGS: CT ABDOMEN: Lung base: Subcentimeter calcified granuloma with scarring is seen in the left lower lobe. Mild subcutaneous fat stranding is seen in the lower anterior chest wall in right side. Unenhanced Liver: The liver is normal in size. There is no intrahepatic biliary radicle dilatation. Gallbladder: The gallbladder is normal and reveals no intrinsic abnormality. The common bile duct is not dilated. Unenhanced Pancreas: The pancreas is normal in size and shape. No focal lesion is seen within. The peripancreatic fat-planes are normal. Spleen: The spleen is normal in size and does not show any focal abnormality. Retroperitoneum: Both adrenal glands are normal in size and morphology in this unenhanced CT scan. There is no significant retroperitoneal lymphadenopathy. The right kidney is normal in size with no hydronephrosis or renal calculi. Left kidney is not visualized in the abdomen and pelvis, probable post- operative. Suggest correlation with surgical history. Vessels: Aorta, IVC and the mesenteric vessels cannot be commented in this unenhanced CT scan. Stomach and bowel: The bowel loops are unremarkable. Skeletal system: Degenerative changes are noted in the thoracolumbar spine. Grade 1 anterolisthesis of L5 on S1 vertebra is seen with bilateral lysis. CT PELVIS: Appendix: The appendix is not visualized. Colon: Probable colectomy status with ileostomy. Bladder: The urinary bladder is unremarkable. The prostate reveals no abnormality. No pelvic lymphadenopathy is identified. Mild left hydrocele. Mild hemoperitoneum with eccentric thickening. Hyperdense collection is seen in the lower anterior abdominal wall in the subcutaneous plane measuring 3 cm in thickness suggestive of hemorrhage. IMPRESSION: 1. Left kidney is not visualized in the abdomen and pelvis, probable post- operative. Suggest correlation with surgical history. 2. Probable colectomy status with ileostomy. 3. Mild hemoperitoneum with eccentric thickening. 4. Hyperdense collection is seen in the lower anterior abdominal wall in the subcutaneous plane suggestive of hemorrhage. Suggest further evaluation with CT angiography study of the abdomen if clinically deemed necessary. Additional chronic and/or ancillary findings as detailed above. Suggest clinical correlation and follow-up as clinically deemed necessary. 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 CT abdomen and pelvis IMPRESSION: 1. Left kidney is not visualized in the abdomen and pelvis, probable post- operative. Suggest correlation with surgical history. 2. Probable colectomy status with ileostomy. 3. Mild hemoperitoneum with eccentric thickening. 4. Hyperdense collection is seen in the lower anterior abdominal wall in the subcutaneous plane suggestive of hemorrhage. Suggest further evaluation with CT angiography study of the abdomen if clini cong deemed necessary. Additional chronic and/or ancillary findings as detailed above. Suggest clinical correlation and follow-up as clinically deemed necessary. CBC remarkable for WBC 4, CMP remarkable for potassium 3.1, chloride 109, CO2 18, creatinine 2.4, AST 36, ALT 43, alkaline phos 118. Lipase 64. UA pending. Patient treated with the following in the ED: 1 L 0.9 normal saline IV bolus, morphine 4 mg IV, Zofran 4 mg IV, Protonix 40 mg IV, effervescent potassium 50 mEq p.o. On re-evaluation, patient states pain has improved. Vitals were stable. Plan is to admit the patient for surgical/GI evaluation, serial H&H and e lectrolyte correction. Time of 1ST Reevaluation: 02:16 Reevaluation 1ST: Unchanged Patient Education/Counseling: Diagnosis, Treatment Family Education/Counseling: No Family Present SEPSIS Sepsis Screen Physician Orders Urinalysis (10/09/24 01:59) Ct Ab Pel Wo Con-No Oral Or Iv (10/09/24 01:59) Potassium Effervesent Tab (Klor-Con/Ef) (10/09/24 04:45) * Surgical Consult (10/09/24 ) Vital Signs Date Time Temp Pulse Resp B/P (MAP) Pulse Ox O2 Delivery O2 Flow Rate FiO2 10/09/24 02:35 98.4 62 18 152/107 (122) 99 98.4 10/09/24 02:10 98.5 86 16 106/80 (89) 96 98.5 Laboratory Tests Test 10/09/24 02:15 White Blood Count 4.0 10^3/uL (4.4-10.8) L Departure 1 Departure Time of Disposition: 04:33 Impression: Primary Impression: Hemoperitoneum Additional Impression: Hypokalemia Disposition: ADMITTED INPATIENT Admit to: Tele Condition: Guarded Critical Care Note Critical Care Time?: No Stability Stability form required: No Heart Score Heart Score: Heart Score Response (Comments) Value History N/A 0 EKG N/A 0 Age N/A 0 Risk Factors N/A 0 Troponin N/A 0 Total 0 I personally scribed for GINNY BOWMAN MD ([facility] on 10/09/24 at 02:20. Electronically submitted by Mauro Rizo ([facility]). I personally scribed for GINNY BOWMAN MD ([facility]) on 10/09/24 at 04:39. Electronically submitted by Mauro Rizo ([facility]). GINNY BOWMAN MD Oct 09, 2024 02:20
[2024-10-09 02:34] LABS: Hematocrit 41.0 % (41.0-53.0); Hemoglobin 13.6 g/dL (13.5-17.5); Mean Corpuscular Hemoglobin 29.7 pg (28.0-32.0); Mean Corpuscular Volume 89.4 fL (80.0-100.0); Nucleated Red Blood Cells % 0.0 %
[2024-10-09 03:03] LABS: Calcium 9.2 mg/dL (8.7-10.4); Glucose 105 mg/dL (74-106)
[2024-10-09 03:04] LABS: Albumin 4.5 g/dL (3.2-4.8); Anion Gap 11 (5-15); BUN/Creatinine Ratio 9.2 (10.0-20.0); Bilirubin, Total 0.4 mg/dL (0.2-1.0); Blood Urea Nitrogen 22 mg/dL (9-23); Sodium 138 mmol/L (136-145); Total Protein 7.2 g/dL (5.7-8.2)
[2024-10-09 03:28] LABS: Alanine Aminotransferase 43 U/L (7-40); Alkaline Phosphatase 118 U/L (46-116); Carbon Dioxide 18 mmol/L (20-31); Chloride 109 mmol/L (98-107); Lipase 64 U/L (12-53); Potassium 3.1 mmol/L (3.5-5.1)
--- NOTE | 2024-10-09 03:42 | DVH ---
Critical finding: Examination: ABPL CLINICAL INDICATION: Abdominal pain. COMPARISON: None. CONTRAST USED: None. TECHNIQUE: A plain CT study of the abdomen and pelvis is performed. The examination was performed w ith 5 mm thin slices. Multiplanar reconstructions were obtained. CT scan done according to ALARA (As Low As Reasonably Achievable). FINDINGS: CT ABDOMEN: Lung base: Subcentimeter calcified granuloma with scarring is seen in the left lower lobe. Mild subcutaneous fat stranding is seen in the lower anterior chest wall in right side. Unenhanced Liver: The liver is normal in size. There is no intrahepatic biliary radicle dilatation . Gallbladder: The gallbladder is normal and reveals no intrinsic abnormality. The common bile duct is not dilated. Unenhanced Pancreas: The pancreas is normal in size and shape. No focal lesion is seen within. T he peripancreatic fat-planes are normal. Spleen: The spleen is normal in size and does not show any focal abnormality. Retroperitoneum: Both adrenal glands are normal in size and morphology in this unenhanced CT scan. There is no significant retroperitoneal lymphadenopathy. The right kidney is normal in size with no hydronephrosis or renal calculi. Left kidney is not visualized in the abdomen and pelvis, probable post-operative. Suggest correlation with surgical history. Vessels: Aorta, IVC and the mesenteric vessels cannot be commented in this unenhanced CT scan. Stomach and bowel: The bowel loops are unremarkable. Skeletal system: Degenerative changes are noted in the thoracolumbar spine. Grade 1 anterolisthesis of L5 on S1 vertebra is seen with bilateral lysis. CT PELVIS: Appendix: The appendix is not visualized. Colon: Probable colectomy status with ileostomy. Bladder: The urinary bladder is unremarkable. The prostate reveals no abnormality. No pelvic lymphadenopathy is identified. Mild left hydrocele. Mild hemoperitoneum with eccentric thickening. Hyperdense collection is seen in the lower anterior abdominal wall in the subcutaneous plane measurin g 3 cm in thickness suggestive of hemorrhage. IMPRESSION: 1. Left kidney is not visualized in the abdomen and pelvis, probable post-operative. Suggest correla tion with surgical history. 2. Probable colectomy status with ileostomy. 3. Mild hemoperitoneum with eccentric thickening. 4. Hyperdense collection is seen in the lower anterior abdominal wall in the subcutaneous plane sugg estive of hemorrhage. Suggest further evaluation with CT angiography study of the abdomen if clinically deemed necessary. Additional chronic and/or ancillary findings as detailed above. Suggest clinical correlation and follow-up as clinically deemed necessary. Electronically Signed 10/09/2024 03:40 Carlyle Giang
[2024-10-09] MEDS ORDERED: POTASSIUM EFFERVESENT TAB 25 MEQ PO ONE (04:45)
[2024-10-09 05:01] LABS: Urine Protein, UAD TRACE (Negative)
[2024-10-09] MEDS: PANTOPRAZOLE 40 MG/10 ML VIAL INJ IV ONE (07:33)
[2024-10-09] MEDS: ONDANSETRON HCL 4 MG/2 ML VIAL IV ONE (07:33)
[2024-10-09] MEDS: SODIUM CHLORIDE 0.9% 1,000 ML IV ONE ×2 (07:34→08:30)
[2024-10-09] MEDS: MORPHINE SULFATE 4 MG/ML SYR/VIAL IV ONE (07:36)
--- NOTE | 2024-10-09 07:42 | DVHHP2 ---
History of Present Illness Reason for Visit: Abdominal pain History of Present Illness 44-year-old male past medical history chronic pain, schizophrenia without exacerbation, colon cancer status post ileostomy anemia anxiety, chronic UTIs, urethral stent with the removal in February of 2023, nephro tubes, CKD surgical history ileostomy in nephro tubes and stents in the kidney chief complaint patient comes in with abdominal pain he had been dealing with 4-5 days it appears patient was just recently discharged here October 07, 2023 he was diagnosed with acute pericarditis he denies any chest pain but he has got a colostomy to his right lower abdomen with green liquid stool no blood noted patient does not allow provided to examined abdomen he has guarding and rebound tenderness but CT scan shows a mild hemo peritoneum in the abdomen CBC was unremarkable potassium was 3.1 chloride was 109 CO2 was 18 creatinine was 2.40 which is at baseline AST was 36 ALT was 43 general surgery was consulted. We will admit NPO for now IV fluids pain management until General surgery evaluation Past Medical History See HPI above Past Surgical History See HPI above Family History Reviewed, non-contributory to the management of this case. Past Social History The patient lives at home, denies smoking, alcohol or illicit drugs abuse. Guarded about this information Review of Systems Constitutional: No: Fever, Chills, Sweats, Weakness, Malaise, Other Eyes: No: Pain, Vision change, Conjunctivae inflammation, Eyelid inflammation, Other, Redness ENT: No: Ear pain, Ear discharge, Nose pain, Nose discharge, Nose congestion, Mouth pain, Mouth swelling, Throat pain, Throat swelling, Other Respiratory: No: Cough, Dry, Shortness of breath, SOB with excertion, Wheezing, Hemoptysis, Pleuritic Pain, Sputum, Wheezing, Other Cardiovascular: No: Chest Pain, Palpitations, Orthopnea, Paroxysmal Noc. Dyspnea, Edema, Lt Headedness, Other Gastrointestinal: Abdominal Pain; No: Nausea, Vomiting, Diarrhea, Constipation, Melena, Hematochezia, Other Genitourinary: No Dysuria, No Frequency, No Incontinence, No Hematuria, No Retention, No Other Musculoskeletal: No: other, neck pain, shoulder pain, arm pain, back pain, hand pain, leg pain, foot pain Skin: No: Rash, Lesions, Jaundice, Bruising, Other Neurological: No: Weakness, Numbness, Incoordination, Change in speech, Confusion, Seizures, Other Allergies: Coded Allergies: NO KNOWN ALLERGIES (Unverified , 06/02/14) Exam Vital Signs Vital Signs Date Time Temp Pulse Resp B/P (MAP) Pulse Ox O2 Delivery O2 Flow Rate FiO2 10/09/24 07:36 66 16 111/86 10/09/24 02:35 98.4 99 98.4 General Appearance: Alert, Oriented X3, Cooperative, No acute distress HEENT: Atraumatic, PERRLA, EOMI, Mucous membr. moist/pink Respiratory: Clear to auscultation, Normal air movement Cardiovascular: Regular rate, Normal S1, Normal S2, No murmurs Abdominal: Other (Guarding and rebound tenderness to right side of abdomen patient does not allow provided touch abdomen but he has a colostomy as visible pink viable) Extremities: No clubbing, No cyanosis, No edema, Normal pulses, No tenderness/swelling Skin: No rashes, No breakdown, No significant lesion Neuro: Normal gait, Normal speech, Strength at 5/5 X4 ext, Normal tone, Sensation intact, Cranial nerves 3-12 NL Psych/Mental Status: Mental status NL, Mood NL Labs/Xrays CT scan abdomen pelvis shows colectomy status post ileostomy mild right hemo peritoneum left kidney appears to be removed I reviewed labs, imaging CT scan abdomen pelvis, EKG and all diagnostic studies on this patient from ED records and the medical chart Labs Test 10/09/24 02:15 10/09/24 01:52 Range/Units White Blood Count 4.0 L 4.4-10.8 10^3/uL Red Blood Count 4.58 4.5-5.90 10^6/uL Hemoglobin 13.6 13.5-17.5 g/dL Hematocrit 41.0 41.0-53.0 % Mean Corpuscular Volume 89.4 80.0-100.0 fL Mean Corpuscular Hemoglobin 29.7 28.0-32.0 pg Mean Corpuscular Hemoglobin Concent 33.2 32.0-36.0 g/dL Red Cell Distribution Width 13.4 11.8-14.3 % Platelet Count 231 140-450 10^3/uL Mean Platelet Volume 7.1 6.9-10.8 fL Neutrophils (%) (Auto) 55.5 37.0-80.0 % Lymphocytes (%) (Auto) 27.5 10.0-50.0 % Monocytes (%) (Auto) 8.6 0.0-12.0 % Eosinophils (%) (Auto) 7.7 H 0.0-7.0 % Basophils (%) (Auto) 0.7 0.0-2.0 % Neutrophils # (Auto) 2.2 1.6-8.6 10 ^3/uL Lymphocytes # (Auto) 1.1 0.4-5.4 10 ^3/uL Monocytes # (Auto) 0.3 0-1.3 10 ^3/uL Eosinophils # (Auto) 0.3 0-0.8 10 ^3/uL Basophils # (Auto) 0 0-0.2 10 ^3/uL Nucleated Red Blood Cells 0.0 % Sodium Level 138 136-145 mmol/L Potassium Level 3.1 L 3.5-5.1 mmol/L Chloride Level 109 H 98-107 mmol/L Carbon Dioxide Level 18 L 20-31 mmol/L Anion Gap 11 5-15 Blood Urea Nitrogen 22 9-23 mg/dL Creatinine 2.40 H 0.700-1.30 mg/dL Glomerular Filtration Rate Calc 33 >90 mL/min BUN/Creatinine Ratio 9.2 L 10.0-20.0 Serum Glucose 105 74-106 mg/dL Calcium Level 9.2 8.7-10.4 mg/dL Total Bilirubin 0.4 0.2-1.0 mg/dL Aspartate Amino Transferase (AST) 36 H <34 U/L Alanine Aminotransferase (ALT) 43 H 7-40 U/L Alkaline Phosphatase 118 H 46-116 U/L Total Protein 7.2 5.7-8.2 g/dL Albumin 4.5 3.2-4.8 g/dL Lipase 64 H 12-53 U/L Urine Color Light-yellow Yellow Urine Clarity Turbid H Clear Urine pH 6.5 5.0-9.0 Urine Specific [place] 1.025 1.001-1.035 Urine Protein Trace H Negative Urine Ketones Negative Negative Urine Blood Negative Negative /uL Urine Nitrite Negative Negative Urine Bilirubin Negative Negative Urine Urobilinogen Normal Negative mg/dL Urine Leukocyte Esterase Negative Negative /uL Urine RBC 1 0 - 3 /hpf Urine Microscopic WBC < 1 0-3 /HPF Urine Squamous Epithelial Cells None seen <5 /hpf Urine Bacteria None seen None Seen /hpf Urine Glucose Normal Normal mg/dL Assessment/Plan Assessment/Plan acute intractable abdominal pain found with acute likely from hemoperitoneum found on ct scan general surgery consulted fu results npo for now ivf ordered morphine as needed for pain ordered zosyn for now ordered protonix acute hypokalemia repleted k fu results acute on chronic ckd monitor ordered ivf for now acute pancreatitis elevated lipase ordered ivf for now npo ordered morphine prn chronic problems Chest Pain with pericarditis Colon cancer status post colostomy bags Acute kidney injury suspected secondary to vasomotor nephropathy with underlying CKD Metabolic acidosis secondary to acute kidney injury Schizophrenia Anemia, Anxiety, Cancer, CKF, Kidney Stones, chronic pain, schizophrenia without exacerbation, colon cancer status post ileostomy , chronic UTIs, urethral stent with the removal in February of 2023, nephro tubes, CKD surgical history ileostomy in nephro tubes and stents in the kidney fen/ppx npo for until surgery evaluation ivf scd no dvt ppx since ?hematoma in lower abd protonix plan admit to medicine pending general surgery referral Plan discussed with: Patient Date of Service: Oct 09, 2024 Billing Provider: DEEPALI MAY DNP Common Visit Codes: [id number] INP/OBS CARE (HIGH) DEEPALI MAY DNP Oct 09, 2024 07:42
[2024-10-09] MEDS: POTASSIUM CHL 20 Meq TABLET PO ONE (08:24)
[2024-10-09] MEDS ORDERED: NITROGLYCERIN 0.4 MG SL TAB SL PRN (08:30)
[2024-10-09] MEDS ORDERED: DOCUSATE SOD 100 MG CAP PO PRN (08:30)
[2024-10-09 09:08] LABS: Magnesium 2.3 mg/dL (1.6-2.6)
[2024-10-09] MEDS: cefTRIAXone 1GM/50ML D5W 50 ML IV ONE (10:41)
[2024-10-09 11:21] VITALS: RESP 17; O2SAT 96
--- NOTE | 2024-10-09 11:27 | DVHINCON2 ---
Date of service: Oct 09, 2024 Family History: Cancer of colon G8 MOTHER FH: cancer G8 FATHER Hypertension Allergies: Coded Allergies: NO KNOWN ALLERGIES (Unverified , 06/02/14) Home Meds Active Scripts Tramadol Hcl (Tramadol Hcl) 50 Mg Tab, 50 MG PO BID for 5 Days, #10 TAB Prov:MYRA PA MD 10/22/23 Ondansetron Odt 4MG Tab (ZOFRAN PO) 4 Mg Tb, 4 MG PO QID for 10 Days, #40 TAB ODT TAB-DISSOLVE IN MOUTH, THEN SWALLOW Prov:MYRA PA MD 10/22/23 Colchicine (Colchicine) 0.6 Mg Cap, 0.6 MG PO DAILY for 30 Days, #3 CAP Prov:JOSIE PALMER [employer] 10/07/23 Aspirin Buffered (Abel Carb-Mag (Aspirin 325 mg) 1 Tab Tab, 1 TAB PO DAILY for 30 Days, #30 TAB Prov:JOSIE PALMER [employer] 10/07/23 Hydrocodone-Acetaminophen (Hydrocodone Bitartrate/AC 5-325 mg) 1 Tab Tab, 1 TAB PO Q6HP PRN for 4 Days, #16 TAB Prov:JOSIE PALMER [employer] 10/07/23 Reported Medications Morphine Sulfate (Morphine Sulfate) 30 Mg Tab, 1 TAB PO QID, #120 TAB 10/05/23 Hydrocodone-Acetaminophen (Hydrocodone Bitartrate/AC 5-325 mg) 1 Tab Tab, 1 TAB PO, TAB 10/05/23 Current Medications Current Medications Medications (Trade) Dose Ordered Sig/Domenica Route PRN Reason Start Time Stop Time Status Last Admin Ondansetron HCl (Zofran) 4 mg Q4HP PRN IV NAUSEA / VOMITING 10/09/24 08:30 Docusate Sodium (Colace Capsule) 100 mg BIDPRN PRN PO FOR CONSTIPATION 10/09/24 08:30 Morphine Sulfate 2 mg Q4HPRN PRN IV SEVERE PAIN (7-10 PAIN SCALE) 10/09/24 08:30 Nitroglycerin (Ntrostat Sublingual) 0.4 mg Q5MINP PRN SL FOR CHEST PAIN 10/09/24 08:30 Ceftriaxone Sodium 50 ml @ 100 mls/hr DAILY@09 IV 10/10/24 09:00 Metronidazole 100 ml @ 100 mls/hr Q8HR IV 10/09/24 14:00 Vital Signs Vital Signs Date Time Temp Pulse Resp B/P (MAP) Pulse Ox O2 Delivery O2 Flow Rate FiO2 10/09/24 11:00 59 13 108/64 (79) 97 10/09/24 07:40 98.0 98.0 Labs/Diagnostic Data Labs Test 10/09/24 02:15 10/09/24 01:52 Range/Units White Blood Count 4.0 L 4.4-10.8 10^3/uL Red Blood Count 4.58 4.5-5.90 10^6/uL Hemoglobin 13.6 13.5-17.5 g/dL Hematocrit 41.0 41.0-53.0 % Mean Corpuscular Volume 89.4 80.0-100.0 fL Mean Corpuscular Hemoglobin 29.7 28.0-32.0 pg Mean Corpuscular Hemoglobin Concent 33.2 32.0-36.0 g/dL Red Cell Distribution Width 13.4 11.8-14.3 % Platelet Count 231 140-450 10^3/uL Mean Platelet Volume 7.1 6.9-10.8 fL Neutrophils (%) (Auto) 55.5 37.0-80.0 % Lymphocytes (%) (Auto) 27.5 10.0-50.0 % Monocytes (%) (Auto) 8.6 0.0-12.0 % Eosinophils (%) (Auto) 7.7 H 0.0-7.0 % Basophils (%) (Auto) 0.7 0.0-2.0 % Neutrophils # (Auto) 2.2 1.6-8.6 10 ^3/uL Lymphocytes # (Auto) 1.1 0.4-5.4 10 ^3/uL Monocytes # (Auto) 0.3 0-1.3 10 ^3/uL Eosinophils # (Auto) 0.3 0-0.8 10 ^3/uL Basophils # (Auto) 0 0-0.2 10 ^3/uL Nucleated Red Blood Cells 0.0 % Sodium Level 138 136-145 mmol/L Potassium Level 3.1 L 3.5-5.1 mmol/L Chloride Level 109 H 98-107 mmol/L Carbon Dioxide Level 18 L 20-31 mmol/L Anion Gap 11 5-15 Blood Urea Nitrogen 22 9-23 mg/dL Creatinine 2.40 H 0.700-1.30 mg/dL Glomerular Filtration Rate Calc 33 >90 mL/min BUN/Creatinine Ratio 9.2 L 10.0-20.0 Serum Glucose 105 74-106 mg/dL Calcium Level 9.2 8.7-10.4 mg/dL Phosphorus Level 3.5 2.4-5.1 mg/dL Magnesium Level 2.3 1.6-2.6 mg/dL Total Bilirubin 0.4 0.2-1.0 mg/dL Aspartate Amino Transferase (AST) 36 H <34 U/L Alanine Aminotransferase (ALT) 43 H 7-40 U/L Alkaline Phosphatase 118 H 46-116 U/L Total Protein 7.2 5.7-8.2 g/dL Albumin 4.5 3.2-4.8 g/dL Lipase 64 H 12-53 U/L Urine Color Light-yellow Yellow Urine Clarity Turbid H Clear Urine pH 6.5 5.0-9.0 Urine Specific [place] 1.025 1.001-1.035 Urine Protein Trace H Negative Urine Ketones Negative Negative Urine Blood Negative Negative /uL Urine Nitrite Negative Negative Urine Bilirubin Negative Negative Urine Urobilinogen Normal Negative mg/dL Urine Leukocyte Esterase Negative Negative /uL Urine RBC 1 0 - 3 /hpf Urine Microscopic WBC < 1 0-3 /HPF Urine Squamous Epithelial Cells None seen <5 /hpf Urine Bacteria None seen None Seen /hpf Urine Glucose Normal Normal mg/dL Assessment 44 YEAR OLD MALE WITH HX OF SCHOZOPHRENIA AND ABDOMINAL TUMOR RESECTION RESULTING IN COLOSTOMY, PRESENTING WITH ABDOMINAL PAIN AND CT EVIDENCE OF HEMOPPERITONEUM, ELEVATED CREATININE PRECLUDES CT ANGIOGRAPHY, WILL GET MRI, IMNSEERT [place] AND REHYDRATE, Plan discussed with: Patient ALTAF STATON MD Oct 09, 2024 11:27
[2024-10-09] MEDS: D5W/LACTATED RINGERS 1,000 ML IV SCH (12:53)
[2024-10-09] MEDS: ONDANSETRON HCL 4 MG/2 ML VIAL IV PRN (15:28)
[2024-10-09] MEDS: MORPHINE SULFATE INJ 2 MG/ml SYRG IV PRN (15:29)
--- NOTE | 2024-10-09 19:02 | DVH ---
MRI Abdomen and pelvis, without IV Contrast Exam Date: 10/09/2024 01:31 PM Comparison: CT dated 10/09/2024 and 11/04/2023 History: Pain Technique: Multisequence multiplanar MRI images were obtained of the abomen and pelvis. Findings: Cardiomegaly. Liver: The liver is normal in size without focal lesions. Normal liver contour. Spleen: Unremarkable. Pancreas: The pancreas is normal in appearance without focal lesions. Gallbladder and ducts: Gallbladder is normal in appearance. The cystic duct, right and left hepatic d ucts, common hepatic duct, and common bile ducts are unremarkable. The pancreatic duct is within nor mal limits. Adrenal glands: Unremarkable. 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 Right kidney is unremarkable. Visualized bowel: Right lower quadrant colostomy. Vasculature: Unremarkable. Lymphadenopathy: No evidence for lymphadenopathy. Ascites: Absent. Unchanged infiltrative changes in the central pelvis and central abdominal mesentery. Musculoskeletal: Bone marrow signal is normal. Unchanged soft-tissue thickening in the anterior pelvis overlying the rectus musculature at midline. IMPRESSION: No acute finding involving the abdomen or pelvis.
[2024-10-09 19:22] VITALS: PULSE 52; RESP 15; O2SAT 96
[2024-10-10 06:37] LABS: Hematocrit 35.5 % (41.0-53.0); Hemoglobin 12.0 g/dL (13.5-17.5); Mean Corpuscular Hemoglobin 30.2 pg (28.0-32.0); Mean Corpuscular Volume 89.5 fL (80.0-100.0); Nucleated Red Blood Cells % 0.1 %
[2024-10-10 06:49] LABS: Alanine Aminotransferase 29 U/L (7-40); Albumin 3.3 g/dL (3.2-4.8); Alkaline Phosphatase 91 U/L (46-116); Anion Gap 11 (5-15); BUN/Creatinine Ratio 6.8 (10.0-20.0); Bilirubin, Total 0.5 mg/dL (0.2-1.0); Blood Urea Nitrogen 14 mg/dL (9-23); Glucose 100 mg/dL (74-106); Sodium 142 mmol/L (136-145)
[2024-10-10 07:05] LABS: Calcium 8.3 mg/dL (8.7-10.4); Carbon Dioxide 18 mmol/L (20-31); Chloride 113 mmol/L (98-107); Lipase 64 U/L (12-53); Potassium 3.5 mmol/L (3.5-5.1); Total Protein 5.4 g/dL (5.7-8.2)
[2024-10-10 08:11] VITALS: PULSE 49; RESP 19; O2SAT 98
[2024-10-10 08:58] VITALS: BP 94/64; PULSE 63; RESP 16; RESP 18; TEMP 98; O2SAT 98
[2024-10-10 09:02] VITALS: BP 100/57; PULSE 56; RESP 16; TEMP 98.1; O2SAT 97
--- NOTE | 2024-10-10 09:02 | DVHPN2 ---
Progress Note Date Seen: Oct 10, 2024 Medical Necessity Reason Pt with a Central, PICC or Fol: No Objective vital signs Vital Sign Date Time Temp Pulse Resp B/P (MAP) Pulse Ox O2 Delivery O2 Flow Rate FiO2 10/10/24 08:11 49 19 98 Room Air* 0 21 10/10/24 08:09 97/57 (70) 10/10/24 04:00 97.9 97.9 Total Intake and Output 10/09/24 10/09/24 10/10/24 15:00 23:00 07:00 Intake Total 537.5 ml 325 ml Balance 537.5 ml 325 ml medications Current Medications Medications Dose Ordered Sig/Domenica Route Start Time Stop Time Status Last Admin Dose Admin Ondansetron HCl 4 mg Q4HP PRN IV 10/09/24 08:30 10/09/24 15:28 4 MG Docusate Sodium 100 mg BIDPRN PRN PO 10/09/24 08:30 Morphine Sulfate 2 mg Q4HPRN PRN IV 10/09/24 08:30 10/09/24 20:07 2 MG Nitroglycerin 0.4 mg Q5MINP PRN SL 10/09/24 08:30 Ceftriaxone Sodium 50 ml @ 100 mls/hr DAILY@09 IV 10/10/24 09:00 Metronidazole 100 ml @ 100 mls/hr Q8HR IV 10/09/24 14:00 10/10/24 05:00 100 MLS/HR Dextrose/Lactated Ringer's 1,000 ml @ 125 mls/hr Q8H IV 10/09/24 11:30 10/10/24 03:28 125 MLS/HR laboratory and microbiology Laboratory Tests 10/10/24 06:10 Test 10/10/24 06:10 Range/Units Serum Glucose 100 74-106 mg/dL Problem List/Assessment/Plan Problem List/Assessment/Plan 10/10/24 MRI of abdomen shows no evidence of hemoperitoneum, he is tolerating po diet, stoma is functioning. there is no indication for emergency surgical intervention . Plan discussed with: Patient, Other ALTAF STATON MD Oct 10, 2024 09:02
[2024-10-10 09:29] LABS: INR 1.01 (0.9-1.15); Partial Thromboplastin Time 25.8 SEC (24.5-34.5); Prothrombin Time 10.7 sec (9.3-11.8)
[2024-10-10] MEDS: cefTRIAXone 1GM/50ML D5W 50 ML IV SCH (09:38)
--- NOTE | 2024-10-10 12:06 | DVHPNRES ---
Progress Note Medical Necessity Reason Pt with a Central, PICC or Fol: No Objective vital signs Vital Sign Date Time Temp Pulse Resp B/P (MAP) Pulse Ox O2 Delivery O2 Flow Rate FiO2 10/10/24 09:42 62 18 136/74 10/10/24 09:02 98.1 97 98.1 10/10/24 08:11 Room Air* 0 21 Total Intake and Output 10/09/24 10/09/24 10/10/24 15:00 23:00 07:00 Intake Total 537.5 ml 325 ml Balance 537.5 ml 325 ml medications Current Medications Medications Dose Ordered Sig/Domenica Route Start Time Stop Time Status Last Admin Dose Admin Ondansetron HCl 4 mg Q4HP PRN IV 10/09/24 08:30 10/09/24 15:28 4 MG Docusate Sodium 100 mg BIDPRN PRN PO 10/09/24 08:30 Morphine Sulfate 2 mg Q4HPRN PRN IV 10/09/24 08:30 10/10/24 09:42 2 MG Nitroglycerin 0.4 mg Q5MINP PRN SL 10/09/24 08:30 Ceftriaxone Sodium 50 ml @ 100 mls/hr DAILY@09 IV 10/10/24 09:00 10/10/24 09:38 100 MLS/HR Metronidazole 100 ml @ 100 mls/hr Q8HR IV 10/09/24 14:00 10/10/24 05:00 100 MLS/HR Dextrose/Lactated Ringer's 1,000 ml @ 125 mls/hr Q8H IV 10/09/24 11:30 10/10/24 03:28 125 MLS/HR laboratory and microbiology Laboratory Tests 10/10/24 06:10 Test 10/10/24 06:10 Range/Units Serum Glucose 100 74-106 mg/dL FIFI ORTIZ RESDIENT Oct 10, 2024 12:06
--- NOTE | 2024-10-10 13:43 | DVHPNRES ---
Progress Note Date Seen: Oct 10, 2024 Resident Creating Document: FIFI ORTIZ RESDIENT Medical Necessity Reason Pt with a Central, PICC or Fol: No Subjective Review of Systems Patient seen and examined at bedside. Patient is still complaining of abdominal pain, nausea and generalized weakness. Patient reports: No new complaints Changes from previous H/P or p: No Changes Objective vital signs Vital Sign Date Time Temp Pulse Resp B/P (MAP) Pulse Ox O2 Delivery O2 Flow Rate FiO2 10/10/24 09:42 62 18 136/74 10/10/24 09:02 98.1 97 98.1 10/10/24 08:11 Room Air* 0 21 Total Intake and Output 10/09/24 10/09/24 10/10/24 15:00 23:00 07:00 Intake Total 537.5 ml 325 ml Balance 537.5 ml 325 ml medications Current Medications Medications Dose Ordered Sig/Domenica Route Start Time Stop Time Status Last Admin Dose Admin Ondansetron HCl 4 mg Q4HP PRN IV 10/09/24 08:30 10/09/24 15:28 4 MG Docusate Sodium 100 mg BIDPRN PRN PO 10/09/24 08:30 Morphine Sulfate 2 mg Q4HPRN PRN IV 10/09/24 08:30 10/10/24 09:42 2 MG Nitroglycerin 0.4 mg Q5MINP PRN SL 10/09/24 08:30 Ceftriaxone Sodium 50 ml @ 100 mls/hr DAILY@09 IV 10/10/24 09:00 10/10/24 09:38 100 MLS/HR Metronidazole 100 ml @ 100 mls/hr Q8HR IV 10/09/24 14:00 10/10/24 05:00 100 MLS/HR Dextrose/Lactated Ringer's 1,000 ml @ 125 mls/hr Q8H IV 10/09/24 11:30 10/10/24 03:28 125 MLS/HR Examination General Appearance: Alert, Oriented X3, Cooperative, No acute distress HEENT: Atraumatic, PERRLA, EOMI, Mucous membrane moist/pink Respiratory: Clear to auscultation, Normal air movement Cardiovascular: Regular rate, Normal S1, Normal S2, No murmurs, no chest wall tenderness Abdominal: Ileostomy on the right side of abdomen, with a tender swelling at lower abdomen 5 x 4 cm Extremities: No clubbing, No cyanosis, No edema, Normal pulses, No tenderness/swelling Skin: No rashes, No breakdown, No significant lesion Neuro: Normal gait, Normal speech, Strength at 5/5 X4 ext, Normal tone, Sensation intact, Cranial nerves 3-12 NL, Reflexes 2+ Psych/Mental Status: Mental status NL, Mood NL laboratory and microbiology Laboratory Tests 10/10/24 06:10 Test 10/10/24 06:10 Range/Units Serum Glucose 100 74-106 mg/dL Labs and/or images reviewed: Labs reviewed by me, Image(s) reviewed by me Problem List/Assessment/Plan Problem List/Assessment/Plan Acute intractable abdominal pain likely from hemoperitoneum/abdominal wall hematoma Hemoperitoneum Abdominal wall hematoma History of colon cancer, status post colectomy, and ileostomy AMITA, likely on CKD, due to VMN Hypokalemia Ruled out pancreatitis Transaminitis, ? History of schizophrenia Anxiety * Abdominal CT scan shows, mild hemoperitoneum with eccentric thickening and hyperdense collection is seen in the lower anterior abdominal wall in the subcutaneous plane suggestive of hemorrhage Plan/recommendation * Empiric antibiotic Rocephin IV and Flagyl IV * Pain management * IV fluid * Consulted surgery, recommended medical management and GI evaluation DIET: Cardiac diet DVT PROPHYLAXIS: Not indicated, patient has hematoma GI PROPHYLAXIS:: Protonix CODE STATUS: Goal of care discussed for 20 minutes, full code DISPOSITION: Med/surge Patient's status and plan discussed with the patient. Case discussed with Dr. Gleason. Plan discussed with: Patient, Other (RN) My Orders My Orders Orders - [facility] Procedure Category Date Status Time Basic Metabolic Panel LAB 10/11/24 Verified 04:00 Complete Blood Count LAB 10/11/24 Verified 04:00 Addendum Addendum Addendum I was physically present for the rothman portions of the service provided to patient by THE RESIDENT. I have reviewed the documentation, discussed the case with resident and agree with the resident's documentation except as noted. Also the patient's clinical case was discussed with the patient's nurse. This medical document was created using an electronic medical record system with computerized dictation system. Although this document has been carefully reviewed, there might still be some phonetic and typographical errors. These areas are purely typographical due to imperfections of the software programs, and do not reflect any compromise in the patient's medical care. Late signature. Date of Service: Oct 10, 2024 Billing Provider: ADAMA GLEASON MD Common Visit Codes: [id number] INP/OBS CARE(HIGH) Secondary Visit Codes: [id number] CARE PLAN 30 MINUTES (20 minutes) FIFI ORTIZ Oct 10, 2024 13:43 ADAMA GLEASON MD Oct 11, 2024 16:05
[2024-10-10 14:30] VITALS: BP 96/57; PULSE 65; RESP 18; TEMP 98; O2SAT 100
[2024-10-10 14:44] LABS: Lactic Acid w/Reflex 2.4 mmol/L (0.4-2.0)
[2024-10-10] MEDS: SODIUM CHLORIDE 0.9% 1,000 ML IV ONE (15:58)
[2024-10-10 20:00] VITALS: PULSE 70; RESP 18; O2SAT 97
[2024-10-10 21:00] VITALS: BP 109/71; PULSE 61; RESP 18; TEMP 97.8; O2SAT 96
[2024-10-11] VITALS (9 sets, daily range): BP systolic 90–108; BP diastolic 57–70; PULSE 52–78; RESP 15–18; TEMP 97.8–98.9; O2SAT 94–100
--- NOTE | 2024-10-11 01:34 | DVHINCON2 ---
Date of service: Oct 11, 2024 Referring Physician Leatha Jiménez Reason for Consultation Abdominal pain History of Present Illness 44-year-old male past medical history chronic pain, schizophrenia without exacerbation, colon cancer status post ileostomy over 7 yrs ago, anemia anxiety, chronic UTIs, urethral stent with the removal in February of 2023, nephro tubes, CKD presented with chief complaint patient comes in with abdominal pain he had been dealing with 4-5 days it appears patient was just recently discharged here October 06, Patient is known to me from previous visits and has a known history of chronic pain syndrome possible narcotic seeking behavior Initial CT scan was suggestive of possible small hemoperitoneum and also possible hemorrhage in left anterior abdominal wall. However abdominal MRI was negative ! Patient was seen in the ER ambulating and using the restroom Past Medical History chronic pain, schizophrenia without exacerbation, colon cancer status post ileostomy anemia anxiety, chronic UTIs, urethral stent with the removal Past Surgical History surgical history ileostomy in nephro tubes and stents in the kidney c Family History: Cancer of colon G8 MOTHER FH: cancer G8 FATHER Hypertension Allergies: Coded Allergies: NO KNOWN ALLERGIES (Unverified , 06/02/14) Home Meds Active Scripts Tramadol Hcl (Tramadol Hcl) 50 Mg Tab, 50 MG PO BID for 5 Days, #10 TAB Prov:MYRA PA MD 10/22/23 Ondansetron Odt 4MG Tab (ZOFRAN PO) 4 Mg Tb, 4 MG PO QID for 10 Days, #40 TAB ODT TAB-DISSOLVE IN MOUTH, THEN SWALLOW Prov:MYRA PA MD 10/22/23 Colchicine (Colchicine) 0.6 Mg Cap, 0.6 MG PO DAILY for 30 Days, #3 CAP Prov:JOSIE PALMER AP[place] TURNER 10/07/23 Aspirin Buffered (Abel Carb-Mag (Aspirin 325 mg) 1 Tab Tab, 1 TAB PO DAILY for 30 Days, #30 TAB Prov:JOSIE PALMER [place] TURNER 10/07/23 Hydrocodone-Acetaminophen (Hydrocodone Bitartrate/AC 5-325 mg) 1 Tab Tab, 1 TAB PO Q6HP PRN for 4 Days, #16 TAB Prov:JOSIE PALMER AP[place] TURNER 10/07/23 Reported Medications Morphine Sulfate (Morphine Sulfate) 30 Mg Tab, 1 TAB PO QID, #120 TAB 10/05/23 Hydrocodone-Acetaminophen (Hydrocodone Bitartrate/AC 5-325 mg) 1 Tab Tab, 1 TAB PO, TAB 10/05/23 Current Medications Current Medications Medications (Trade) Dose Ordered Sig/Domenica Route PRN Reason Start Time Stop Time Status Last Admin Ceftriaxone Sodium 50 ml @ 100 mls/hr DAILY@09 IV 10/10/24 09:00 10/10/24 09:38 Vital Signs Vital Signs Date Time Temp Pulse Resp B/P (MAP) Pulse Ox O2 Delivery O2 Flow Rate FiO2 10/11/24 00:40 67 17 110/68 10/10/24 21:00 97.8 96 97.8 10/10/24 20:00 Room Air* 0 21 Physical Exam General Appearance: Alert, Oriented X3, Cooperative, No acute distress;ambulatory HEENT: Atraumatic, PERRLA, EOMI, Mucous membr. moist/pink Respiratory: Clear to auscultation, Normal air movement Cardiovascular: Regular rate, Normal S1, Normal S2, No murmurs Abdominal: Other (Guarding and rebound tenderness to left side of abdomen patient does not allow provided touch abdomen but he has a colostomy as visible pink viable) Extremities: No clubbing, No cyanosis, No edema, Normal pulses, No tenderness/swelling Labs/Diagnostic Data Labs Test 10/10/24 16:29 10/10/24 06:10 10/09/24 02:15 10/09/24 01:52 Range/Units Lactic Acid Level 1.2 0.4-2.0 mmol/L White Blood Count 3.2 L 4.4-10.8 10^3/uL Red Blood Count 3.97 L 4.5-5.90 10^6/uL Hemoglobin 12.0 L 13.5-17.5 g/dL Hematocrit 35.5 #L 41.0-53.0 % Mean Corpuscular Volume 89.5 80.0-100.0 fL Mean Corpuscular Hemoglobin 30.2 28.0-32.0 pg Mean Corpuscular Hemoglobin Concent 33.8 32.0-36.0 g/dL Red Cell Distribution Width 13.5 11.8-14.3 % Platelet Count 169 140-450 10^3/uL Mean Platelet Volume 7.0 6.9-10.8 fL Neutrophils (%) (Auto) 57.4 37.0-80.0 % Lymphocytes (%) (Auto) 25.0 10.0-50.0 % Monocytes (%) (Auto) 6.7 0.0-12.0 % Eosinophils (%) (Auto) 10.4 H 0.0-7.0 % Basophils (%) (Auto) 0.5 0.0-2.0 % Neutrophils # (Auto) 1.9 1.6-8.6 10 ^3/uL Lymphocytes # (Auto) 0.8 0.4-5.4 10 ^3/uL Monocytes # (Auto) 0.2 0-1.3 10 ^3/uL Eosinophils # (Auto) 0.3 0-0.8 10 ^3/uL Basophils # (Auto) 0 0-0.2 10 ^3/uL Nucleated Red Blood Cells 0.1 % Prothrombin Time 10.7 9.3-11.8 sec Prothrombin Time INR 1.01 0.9-1.15 Activated Partial Thromboplast Time 25.8 24.5-34.5 SEC Sodium Level 142 136-145 mmol/L Potassium Level 3.5 3.5-5.1 mmol/L Chloride Level 113 H 98-107 mmol/L Carbon Dioxide Level 18 L 20-31 mmol/L Anion Gap 11 5-15 Blood Urea Nitrogen 14 9-23 mg/dL Creatinine 2.05 H 0.700-1.30 mg/dL Glomerular Filtration Rate Calc 40 >90 mL/min BUN/Creatinine Ratio 6.8 L 10.0-20.0 Serum Glucose 100 74-106 mg/dL Calcium Level 8.3 L 8.7-10.4 mg/dL Total Bilirubin 0.5 0.2-1.0 mg/dL Aspartate Amino Transferase (AST) 25 <34 U/L Alanine Aminotransferase (ALT) 29 7-40 U/L Alkaline Phosphatase 91 46-116 U/L Total Protein 5.4 L 5.7-8.2 g/dL Albumin 3.3 3.2-4.8 g/dL Lipase 64 H 12-53 U/L Phosphorus Level 3.5 2.4-5.1 mg/dL Magnesium Level 2.3 1.6-2.6 mg/dL Urine Color Light-yellow Yellow Urine Clarity Turbid H Clear Urine pH 6.5 5.0-9.0 Urine Specific [place] 1.025 1.001-1.035 Urine Protein Trace H Negative Urine Ketones Negative Negative Urine Blood Negative Negative /uL Urine Nitrite Negative Negative Urine Bilirubin Negative Negative Urine Urobilinogen Normal Negative mg/dL Urine Leukocyte Esterase Negative Negative /uL Urine RBC 1 0 - 3 /hpf Urine Microscopic WBC < 1 0-3 /HPF Urine Squamous Epithelial Cells None seen <5 /hpf Urine Bacteria None seen None Seen /hpf Urine Glucose Normal Normal mg/dL Problems(with codes): (1) Chronic abdominal pain (2) Drug-seeking behavior (3) Opiate dependence (4) Acute pancreatitis (5) Desmoid tumor of abdomen (6) Elevated liver enzymes (7) Lactic acidosis Plan/Recommendation PLAN Continue supportive care IV fluid hydration Advance diet as tolerated Check CEA level and monitor labs Patient may have been seen by me at another hospital recently and I will review records at [facility] Outpatient follow up with GI Services to discuss elective repeat colonoscopy via colostomy Plan discussed with: Patient, Other (ER Nurse) ARMIDA HERNANDEZ MD Oct 11, 2024 01:34
[2024-10-11 06:37] LABS: Hematocrit 35.2 % (41.0-53.0); Hemoglobin 11.7 g/dL (13.5-17.5); Mean Corpuscular Hemoglobin 29.9 pg (28.0-32.0); Mean Corpuscular Volume 89.8 fL (80.0-100.0); Nucleated Red Blood Cells % 0.0 %
[2024-10-11 06:49] LABS: Anion Gap 10 (5-15); Carbon Dioxide 20 mmol/L (20-31); Sodium 141 mmol/L (136-145)
[2024-10-11 06:52] LABS: Calcium 8.0 mg/dL (8.7-10.4); Chloride 111 mmol/L (98-107); Potassium 3.2 mmol/L (3.5-5.1)
[2024-10-11 06:55] LABS: BUN/Creatinine Ratio 9.3 (10.0-20.0); Blood Urea Nitrogen 17 mg/dL (9-23); Glucose 98 mg/dL (74-106)
--- NOTE | 2024-10-11 07:16 | DVH ---
INDICATION: elevated liver tests TECHNIQUE: Multiple real-time sonographic images of the abdomen were obtained. COMPARISON: None FINDINGS: The liver is increased in echogenicity. The liver measures 16.0 cm. No intrahepatic biliar y ductal dilatation is noted. The gallbladder wall measures 0.2 cm and is unremarkable. No gallstones or sludge is seen. The com mon duct measures 0.3 cm and is unremarkable. No pericholecystic fluid is noted. The right kidney measures 11.8 cm. No hydronephrosis. The pancreas is not well visualized due to obscuration from bowel gas. The visualized portions of the IVC and aorta are grossly unremarkable. IMPRESSION: 1. Hepatic steatosis. 2. No gallstones or other acute process.
--- NOTE | 2024-10-11 12:14 | DVHPN2 ---
Subjective The patient is seen and examined at bedside. Complain of abdominal pain. Stating that morphine makes his blood pressure dropped and he requests [place] 10/325 instead Reviewed: Care Plan, H&P, Labs, Medications, Previous Orders, Radiology Changes from previous H/P or p: No Changes Eyes: No Pain, No Vision change, No Conjunctivae inflammation, No Eyelid inflammation, No Other, No Redness ENT: No Ear pain, No Ear discharge, No Nose pain, No Nose discharge, No Nose congestion, No Mouth pain, No Mouth swelling, No Throat pain, No Throat swelling, No Other Cardiovascular: No Chest Pain, No Palpitations, No Orthopnea, No Paroxysmal Noc. Dyspnea, No Edema, No Lt Headedness, No Other Respiratory: No Cough, No Dry, No Shortness of breath, No SOB with excertion, No Wheezing, No Hemoptysis, No Pleuritic Pain, No Sputum, No Other Gastrointestinal: No Nausea, No Vomiting; Abdominal Pain; No Diarrhea, No Constipation, No Melena, No Hematochezia, No Other Genitourinary: No Dysuria, No Frequency, No Incontinence, No Hematuria, No Retention, No Other Musculoskeletal: No other, No neck pain, No shoulder pain, No arm pain, No back pain, No hand pain, No leg pain, No foot pain Skin: No Rash, No Lesions, No Jaundice, No Bruising, No Other Objective Vitals Vital Signs Date Time Temp Pulse Resp B/P (MAP) Pulse Ox O2 Delivery O2 Flow Rate FiO2 10/11/24 09:37 77 17 106/66 10/11/24 09:00 98.0 99 98.0 10/11/24 07:30 Room Air* 0 21 Intake/Output Intake and Output 10/11/24 07:00 Intake Total 3697 ml Output Total 550 ml Balance 3147 ml Intake Oral 1520 ml IV Total 2177 ml Output Urine Total 300 ml Stool Total 250 ml General Appearance: Alert, Oriented X3, Cooperative, No acute distress HEENT: Atraumatic, PERRLA, EOMI, Mucous membr. moist/pink Neck: Supple Lungs: Clear to auscultation, Normal air movement Cardiovascular: Regular rate, Normal S1, Normal S2, No murmurs Abdomen: Normal bowel sounds, Soft Neuro: Cranial nerves 3-12 NL Psych/Mental Status: Mental status NL Medications Current Medications Medications Dose Ordered Sig/Domenica Route Start Time Stop Time Status Last Admin Dose Admin Ondansetron HCl 4 mg Q4HP PRN IV 10/09/24 08:30 10/09/24 15:28 4 MG Docusate Sodium 100 mg BIDPRN PRN PO 10/09/24 08:30 Morphine Sulfate 2 mg Q4HPRN PRN IV 10/09/24 08:30 10/11/24 09:37 2 MG Nitroglycerin 0.4 mg Q5MINP PRN SL 10/09/24 08:30 Ceftriaxone Sodium 50 ml @ 100 mls/hr DAILY@09 IV 10/10/24 09:00 10/11/24 09:24 100 MLS/HR Metronidazole 100 ml @ 100 mls/hr Q8HR IV 10/09/24 14:00 10/11/24 06:18 100 MLS/HR Dextrose/Lactated Ringer's 1,000 ml @ 125 mls/hr Q8H IV 10/09/24 11:30 10/11/24 03:45 125 MLS/HR Laboratory Results Laboratory Tests 10/11/24 05:55 Chemistry Test 10/11/24 05:55 Calcium Level 8.0 mg/dL (8.7-10.4) L Urinalysis Test 10/09/24 01:52 Urine Color Light-yellow (Yellow) Urine Clarity Turbid (Clear) H Urine pH 6.5 (5.0-9.0) Urine Specific [place] 1.025 (1.001-1.035) Urine Protein Trace (Negative) H Urine Ketones Negative (Negative) Urine Blood Negative /uL (Negative) Urine Nitrite Negative (Negative) Urine Bilirubin Negative (Negative) Urine Urobilinogen Normal mg/dL (Negative) Urine Leukocyte Esterase Negative /uL (Negative) Urine RBC 1 /hpf (0 - 3) Urine Microscopic WBC < 1 /HPF (0-3) Urine Squamous Epithelial Cells None seen /hpf (<5) Urine Bacteria None seen /hpf (None Seen) Urine Glucose Normal mg/dL (Normal) Labs and/or images reviewed: Labs reviewed by me Assessment/Plan Assessment/Plan Acute intractable abdominal pain likely from hemoperitoneum/abdominal wall hematoma Hemoperitoneum Abdominal wall hematoma History of colon cancer, status post colectomy, and ileostomy AMITA, likely on CKD, due to VMN Hypokalemia Ruled out pancreatitis Transaminitis, ? History of schizophrenia Anxiety * Abdominal CT scan shows, mild hemoperitoneum with eccentric thickening and hyperdense collection is seen in the lower anterior abdominal wall in the subcutaneous plane suggestive of hemorrhage Plan/recommendation * Empiric antibiotic Rocephin IV and Flagyl IV * Pain management * IV fluid * Consulted surgery, recommended medical management and GI evaluation * This medical document was created using an electronic medical record system with [employer] direct computerized dictation system. Although this document has been carefully reviewed, there may still be some phonetic and typographical errors. These areas are purely typographical due to imperfections of the software programs, and do not reflect any compromise in the patient's medical care. Plan discussed with: Patient Date of Service: Oct 11, 2024 Billing Provider: CHARLA HAAS MD Common Visit Codes: [id number] INP/OBS CARE(HIGH) CHARLA HAAS MD Oct 11, 2024 12:14
[2024-10-11] MEDS: HYDROcodone-ACET 10/325MG TAB PO PRN (17:00)
[2024-10-12 01:00] VITALS: BP 104/69; PULSE 68; RESP 17; TEMP 98.4; O2SAT 96
[2024-10-12 05:00] VITALS: BP 95/61; PULSE 63; RESP 17; TEMP 98.8; O2SAT 95
[2024-10-12 07:30] VITALS: PULSE 78; RESP 17; O2SAT 95
[2024-10-12 09:00] VITALS: BP 122/86; PULSE 71; RESP 16; TEMP 98.5; O2SAT 98
--- NOTE | 2024-10-12 12:19 | DVHPN2 ---
Subjective The patient is seen and examined at bedside. Complain of abdominal pain. Stating that morphine makes his blood pressure dropped and he requests Cammal 10/325 instead Reviewed: Care Plan, H&P, Labs, Medications, Previous Orders, Radiology Eyes: No Pain, No Vision change, No Conjunctivae inflammation, No Eyelid inflammation, No Other, No Redness ENT: No Ear pain, No Ear discharge, No Nose pain, No Nose discharge, No Nose congestion, No Mouth pain, No Mouth swelling, No Throat pain, No Throat swelling, No Other Cardiovascular: No Chest Pain, No Palpitations, No Orthopnea, No Paroxysmal Noc. Dyspnea, No Edema, No Lt Headedness, No Other Respiratory: No Cough, No Dry, No Shortness of breath, No SOB with excertion, No Wheezing, No Hemoptysis, No Pleuritic Pain, No Sputum, No Other Gastrointestinal: No Nausea, No Vomiting; Abdominal Pain; No Diarrhea, No Constipation, No Melena, No Hematochezia, No Other Genitourinary: No Dysuria, No Frequency, No Incontinence, No Hematuria, No Retention, No Other Musculoskeletal: No other, No neck pain, No shoulder pain, No arm pain, No back pain, No hand pain, No leg pain, No foot pain Skin: No Rash, No Lesions, No Jaundice, No Bruising, No Other Objective Vitals Vital Signs Date Time Temp Pulse Resp B/P (MAP) Pulse Ox O2 Delivery O2 Flow Rate FiO2 10/12/24 09:00 98.5 71 16 122/86 (98) 98 98.5 10/11/24 20:00 Room Air* 0 21 Intake/Output Intake and Output 10/12/24 07:00 Intake Total 3150 ml Balance 3150 ml Intake Oral 2950 ml IV Total 200 ml # Voids 4 # Bowel Movements 1 General Appearance: Alert, Oriented X3, Cooperative, No acute distress HEENT: Atraumatic, PERRLA, EOMI, Mucous membr. moist/pink Neck: Supple Lungs: Clear to auscultation, Normal air movement Cardiovascular: Regular rate, Normal S1, Normal S2, No murmurs Abdomen: Normal bowel sounds, Soft Neuro: Cranial nerves 3-12 NL Psych/Mental Status: Mental status NL Medications Current Medications Medications Dose Ordered Sig/Domenica Route Start Time Stop Time Status Last Admin Dose Admin Ondansetron HCl 4 mg Q4HP PRN IV 10/09/24 08:30 10/11/24 13:50 4 MG Docusate Sodium 100 mg BIDPRN PRN PO 10/09/24 08:30 Morphine Sulfate 2 mg Q4HPRN PRN IV 10/09/24 08:30 10/12/24 01:40 2 MG Nitroglycerin 0.4 mg Q5MINP PRN SL 10/09/24 08:30 Ceftriaxone Sodium 50 ml @ 100 mls/hr DAILY@09 IV 10/10/24 09:00 10/11/24 09:24 100 MLS/HR Metronidazole 100 ml @ 100 mls/hr Q8HR IV 10/09/24 14:00 10/12/24 05:23 100 MLS/HR Dextrose/Lactated Ringer's 1,000 ml @ 125 mls/hr Q8H IV 10/09/24 11:30 10/12/24 05:36 125 MLS/HR Acetaminophen/ Hydrocodone Bitart 1 tab Q6HP PRN PO 10/11/24 12:30 10/11/24 17:00 1 TAB Laboratory Results Laboratory Tests 10/11/24 05:55 Urinalysis Test 10/09/24 01:52 Urine Color Light-yellow (Yellow) Urine Clarity Turbid (Clear) H Urine pH 6.5 (5.0-9.0) Urine Specific [place] 1.025 (1.001-1.035) Urine Protein Trace (Negative) H Urine Ketones Negative (Negative) Urine Blood Negative /uL (Negative) Urine Nitrite Negative (Negative) Urine Bilirubin Negative (Negative) Urine Urobilinogen Normal mg/dL (Negative) Urine Leukocyte Esterase Negative /uL (Negative) Urine RBC 1 /hpf (0 - 3) Urine Microscopic WBC < 1 /HPF (0-3) Urine Squamous Epithelial Cells None seen /hpf (<5) Urine Bacteria None seen /hpf (None Seen) Urine Glucose Normal mg/dL (Normal) Microbiology Microbiology Date/Time Source Procedure Growth Status 10/10/24 19:00 Nose MRSA Screen - Final Complete Assessment/Plan Assessment/Plan Acute intractable abdominal pain likely from hemoperitoneum/abdominal wall hematoma Hemoperitoneum Abdominal wall hematoma History of colon cancer, status post colectomy, and ileostomy AMITA, likely on CKD, due to VMN Hypokalemia Ruled out pancreatitis Transaminitis, ? History of schizophrenia Anxiety * Abdominal CT scan shows, mild hemoperitoneum with eccentric thickening and hyperdense collection is seen in the lower anterior abdominal wall in the subcutaneous plane suggestive of hemorrhage Plan/recommendation * Empiric antibiotic Rocephin IV and Flagyl IV * Pain management * IV fluid * Consulted surgery, recommended medical management and GI evaluation * This medical document was created using an electronic medical record system with [employer] direct computerized dictation system. Although this document has been carefully reviewed, there may still be some phonetic and typographical errors. These areas are purely typographical due to imperfections of the software programs, and do not reflect any compromise in the patient's medical care. My Orders Orders - CHARLA HAAS MD Procedure Category Date Status Time Hydrocodone-Acet PHA 10/11/24 In Process 10/325mg Tab (Cammal 12:30 CHARLA HAAS MD Oct 12, 2024 12:19
--- NOTE | 2024-10-12 12:32 | DVHDS2 ---
Discharge Summary Date of Admission Oct 09, 2024 at 08:30 Date of Discharge: Oct 12, 2024 Admitting Diagnosis Acute intractable abdominal pain likely from hemoperitoneum/abdominal wall hematoma Hemoperitoneum Abdominal wall hematoma History of colon cancer, status post colectomy, and ileostomy AMITA, likely on CKD, due to VMN Hypokalemia Ruled out pancreatitis Transaminitis, ? History of schizophrenia Anxiety Labs/Diagnostic Data: Laboratory Results Test 10/11/24 05:55 10/10/24 16:29 10/10/24 06:10 10/09/24 02:15 White Blood Count 2.9 10^3/uL (4.4-10.8) Red Blood Count 3.92 10^6/uL (4.5-5.90) Hemoglobin 11.7 g/dL (13.5-17.5) Hematocrit 35.2 % (41.0-53.0) Mean Corpuscular Volume 89.8 fL (80.0-100.0) Mean Corpuscular Hemoglobin 29.9 pg (28.0-32.0) Mean Corpuscular Hemoglobin Concent 33.3 g/dL (32.0-36.0) Red Cell Distribution Width 13.8 % (11.8-14.3) Platelet Count 154 10^3/uL (140-450) Mean Platelet Volume 7.1 fL (6.9-10.8) Neutrophils (%) (Auto) 57.4 % (37.0-80.0) Lymphocytes (%) (Auto) 24.6 % (10.0-50.0) Monocytes (%) (Auto) 8.0 % (0.0-12.0) Eosinophils (%) (Auto) 9.6 % (0.0-7.0) Basophils (%) (Auto) 0.4 % (0.0-2.0) Neutrophils # (Auto) 1.7 10 ^3/uL (1.6-8.6) Lymphocytes # (Auto) 0.7 10 ^3/uL (0.4-5.4) Monocytes # (Auto) 0.2 10 ^3/uL (0-1.3) Eosinophils # (Auto) 0.3 10 ^3/uL (0-0.8) Basophils # (Auto) 0 10 ^3/uL (0-0.2) Nucleated Red Blood Cells 0.0 % Sodium Level 141 mmol/L (136-145) Potassium Level 3.2 mmol/L (3.5-5.1) Chloride Level 111 mmol/L (98-107) Carbon Dioxide Level 20 mmol/L (20-31) Anion Gap 10 (5-15) Blood Urea Nitrogen 17 mg/dL (9-23) Creatinine 1.83 mg/dL (0.700-1.30) Glomerular Filtration Rate Calc 46 mL/min (>90) BUN/Creatinine Ratio 9.3 (10.0-20.0) Serum Glucose 98 mg/dL (74-106) Calcium Level 8.0 mg/dL (8.7-10.4) Carcinoembryonic Antigen < 0.50 ng/mL (<=5.0) Lactic Acid Level 1.2 mmol/L (0.4-2.0) Prothrombin Time 10.7 sec (9.3-11.8) Prothrombin Time INR 1.01 (0.9-1.15) Activated Partial Thromboplast Time 25.8 SEC (24.5-34.5) Total Bilirubin 0.5 mg/dL (0.2-1.0) Aspartate Amino Transferase (AST) 25 U/L (<34) Alanine Aminotransferase (ALT) 29 U/L (7-40) Alkaline Phosphatase 91 U/L (46-116) Total Protein 5.4 g/dL (5.7-8.2) Albumin 3.3 g/dL (3.2-4.8) Lipase 64 U/L (12-53) Phosphorus Level 3.5 mg/dL (2.4-5.1) Magnesium Level 2.3 mg/dL (1.6-2.6) Test 10/09/24 01:52 Urine Color Light-yellow (Yellow) Urine Clarity Turbid (Clear) Urine pH 6.5 (5.0-9.0) Urine Specific [place] 1.025 (1.001-1.035) Urine Protein Trace (Negative) Urine Ketones Negative (Negative) Urine Blood Negative /uL (Negative) Urine Nitrite Negative (Negative) Urine Bilirubin Negative (Negative) Urine Urobilinogen Normal mg/dL (Negative) Urine Leukocyte Esterase Negative /uL (Negative) Urine RBC 1 /hpf (0 - 3) Urine Microscopic WBC < 1 /HPF (0-3) Urine Squamous Epithelial Cells None seen /hpf (<5) Urine Bacteria None seen /hpf (None Seen) Urine Glucose Normal mg/dL (Normal) Other Laboratory Tests 10/11/24 05:55 Brief Hx & Hospital Course: This is a 47 years old male with past medical history of chronic pain syndrome, schizophrenia, colon cancer status post ileostomy, anemia, anxiety, chronic UTI, ureteral stent with removal in February 2023 Nephrostomy tube, chronic kidney disease, came to emergency department because severe abdominal pain for 4-5 days. The patient was just recently discharged in October 07, 2023. He was diagnosis with acute pericarditis. At this time he complained of no chest pain. But he got a colostomy on his right low abdomen with greenish liquid stool. No blood in the stool. The patient was admitted. Physical exam showed patient had guarding and rebound tenderness however CT scan abdomen pelvis showed mild hemoperitoneum in the abdomen. GI was consulted. Recommend endoscopy. Recommend the patient to stop using recreational drugs. Per Dr. Cote, GI specialist impression his abdominal pain related to drug use. Today he able to keep food down. So I am going to discharge her home. Advised her to follow up with urologist in [place] per schedule. Activity as tolerated. Diet per home diet. Physical exam: HEENT: Normocephalic atraumatic pupils equal react to light and accommodation. Extraocular muscles intact, conjunctiva pink, oropharynx moist, no thrush, no exudate. Lymphatic: No lymphadenopathy Cardiovascular exam: S1, S2 was heard. No murmurs, rubs, gallops Lung: Clear on auscultation bilaterally, no wheeze, rale, rhonchi. GI: Abdominal soft, nondistended, nontenderness, positive bowel sounds. Extremity: No crepitus, cyanosis, edema. Pedal pulses present bilateral. Full range of motion. Skin: Normal turgor, no rash. Psych: Alert, oriented x3. Neurology: No focal deficits, cranial nerve II to XII grossly intact. This medical document was created using an electronic medical record system with [employer] direct computerized dictation system. Although this document has been carefully reviewed, there may still be some phonetic and typographical errors. These areas are purely typographical due to imperfections of the software programs, and do not reflect any compromise in the patient's medical care. Condition at Discharge: Stable Final Diagnosis/Problems List Acute intractable abdominal pain likely from hemoperitoneum/abdominal wall hematoma Hemoperitoneum Abdominal wall hematoma History of colon cancer, status post colectomy, and ileostomy AMITA, likely on CKD, due to VMN Hypokalemia Ruled out pancreatitis Transaminitis, ? History of schizophrenia Anxiety Discharge Disposition: Home Discharge Instruct/Medications Diet: Cardiac 2g Na,low cholest Activity: No Restrictions, As Tolerated Follow Up/Referral: pcp 1-2 weeks Medications: Resume home meds Scheduled Aspirin Buffered (Abel Carb-Mag (Aspirin 325 mg), 1 TAB PO DAILY Colchicine (Colchicine), 0.6 MG PO DAILY Morphine Sulfate (Morphine Sulfate), 1 TAB PO QID, (Reported) Ondansetron Odt 4MG Tab (Zofran Po), 4 MG PO QID Tramadol Hcl (Tramadol Hcl), 50 MG PO BID Scheduled PRN Hydrocodone-Acetaminophen (Hydrocodone Bitartrate/AC 5-325 mg), 1 TAB PO Q6HP PRN Miscellaneous Medications Hydrocodone-Acetaminophen (Hydrocodone Bitartrate/AC 5-325 mg), 1 TAB PO, (Reported) Discharge Statement: "Patient was advised to return to the ER or call 911 if any headaches, dizziness, shortness of breath, chest pain, abdominal pain, bleeding, fevers, or worsening of medical condition. Patient was counseled about treatment plan, medications, possible side effects, patientverbalized understanding. All questions were answered to the best of my ability. This discharge took greater then 30 minutes in planning, reviewing documentation, counseling the patient, and discussing with other team members." ASSESSMENT ASSESSMENT Assessment abdominal pain Date of Service: Oct 12, 2024 Billing Provider: CHARLA HAAS MD Common Visit Codes: [id number] DISCH DAY >30min CHARLA HAAS MD Oct 12, 2024 12:31
[2024-10-12 13:00] VITALS: BP 121/74; PULSE 82; RESP 18; TEMP 98.4; O2SAT 99
[2024-10-12 14:11] VITALS: BP 101/62; PULSE 60; RESP 17; TEMP 98.8; O2SAT 95
--- NOTE | 2024-10-12 14:45 | DVHPN2 ---
Progress Note - Dictate Date Seen: Oct 12, 2024 Medical Necessity Reason Pt with a Central, PICC or Fol: No Subjective Ongoing chronic abdominal pain Next negative nausea vomiting Tolerating diet Patient pulled out his IV Patient has pain medication seeking behavior Lactic acidosis has resolved and renal function is improving Liver ultrasound shows no gallstones and hepatic steatosis vital signs Vital Sign Date Time Temp Pulse Resp B/P (MAP) Pulse Ox O2 Delivery O2 Flow Rate FiO2 10/12/24 14:11 98.8 60 17 95 10/12/24 13:00 121/74 (90) 10/12/24 07:30 Room Air* 0 21 Total Intake and Output 10/11/24 10/11/24 10/12/24 15:00 23:00 07:00 Intake Total 650 ml 2500 ml Balance 650 ml 2500 ml medications Current Medications Medications Dose Ordered Sig/Domenica Route Start Time Stop Time Status Last Admin Dose Admin Ondansetron HCl 4 mg Q4HP PRN IV 10/09/24 08:30 10/11/24 13:50 4 MG Docusate Sodium 100 mg BIDPRN PRN PO 10/09/24 08:30 Morphine Sulfate 2 mg Q4HPRN PRN IV 10/09/24 08:30 10/12/24 01:40 2 MG Nitroglycerin 0.4 mg Q5MINP PRN SL 10/09/24 08:30 Ceftriaxone Sodium 50 ml @ 100 mls/hr DAILY@09 IV 10/10/24 09:00 10/11/24 09:24 100 MLS/HR Metronidazole 100 ml @ 100 mls/hr Q8HR IV 10/09/24 14:00 10/12/24 05:23 100 MLS/HR Dextrose/Lactated Ringer's 1,000 ml @ 125 mls/hr Q8H IV 10/09/24 11:30 10/12/24 05:36 125 MLS/HR Acetaminophen/ Hydrocodone Bitart 1 tab Q6HP PRN PO 10/11/24 12:30 10/12/24 12:41 1 TAB objective General Appearance: Alert, Oriented X3, Cooperative, No acute distress;ambulatory HEENT: Atraumatic, PERRLA, EOMI, Mucous membr. moist/pink Respiratory: Clear to auscultation, Normal air movement Cardiovascular: Regular rate, Normal S1, Normal S2, No murmurs Abdominal: Other mild diffuse tenderness and guarding but he has a colostomy as visible pink viable) Extremities: No clubbing, No cyanosis, No edema, Normal pulses, No tenderness/swelling laboratory and microbiology Laboratory Tests 10/11/24 05:55 Test 10/11/24 05:55 Range/Units Serum Glucose 98 74-106 mg/dL Problems(with codes): (1) Chronic abdominal pain (2) Acute abdominal pain (3) Drug-seeking behavior (4) Opiate dependence Prognosis Plan Continue supportive care Patient has been counseled about stopping substance abuse and narcotic pain medication Patient has evidence of mild pancreatitis likely related to his substance abuse Advance diet as tolerated Discharge planning is in progress Patient can follow up in my office as an outpatient for any ongoing GI issues Once again thank you for allowing me to participate in the care of this patient Plan discussed with: Patient ARMIDA HERNANDEZ MD Oct 12, 2024 14:44
== END 2024-10-12 16:00 | disposition left against medical advice (07) | DRG 384 ==
LOC: ER 01:46 → OVERFLOW 08:30 → WEST WING 10-10 18:24
PROVIDERS: ADMIT Internal Medicine; ATTEND Internal Medicine
DX: S30.1XXA Contusion of abdominal wall, initial encounter (principal); N17.0 Acute kidney failure with tubular necrosis; K66.1 Hemoperitoneum; D64.9 Anemia, unspecified; E87.6 Hypokalemia; F20.9 Schizophrenia, unspecified; N18.9 Chronic kidney disease, unspecified; R74.01 Elevation of levels of liver transaminase levels; G89.29 Other chronic pain; F41.9 Anxiety disorder, unspecified; Z93.3 Colostomy status; Z93.2 Ileostomy status; Z85.89 Personal history of malignant neoplasm of other organs and systems; Z90.49 Acquired absence of other specified parts of digestive tract; Z87.442 Personal history of urinary calculi; Z85.038 Personal history of other malignant neoplasm of large intestine; Z82.49 Family history of ischemic heart disease and other diseases of the circulatory system; Z80.0 Family history of malignant neoplasm of digestive organs; Z76.5 Malingerer [conscious simulation]; X58.XXXA Exposure to other specified factors, initial encounter; Y93.89 Activity, other specified; Y92.89 Other specified places as the place of occurrence of the external cause; Y99.8 Other external cause status
CPT/HCPCS: 36415; 72195; 74176; 74181; 76705; 80048; 80053; 81001; 82378; 83605; 83690; 83735; 84100; 85025; 85610; 85730; 87081; 96374; 96375; G0378; J2405; J2470; J3490

== ENCOUNTER 2024-11-04 03:31 | Emergency (ER) | payer MEDICAID ==
[~2024-11-04] VITALS: Ht 188 cm; Wt 78.9 kg
--- NOTE | 2024-11-04 04:10 | ED.PDOC ---
GI ASSESSMENT HPI Comments 44 year old male presents to the ED with a chief complaint of abdominal pain onset 2 days. Patient states he has been experiencing diffused abdominal pain as well as RT flank pain for the past 2 days, 1 episode of nausea/vomiting. Patient has been seen in this ED several times for similar symptoms. He was discharged on 10/12/24, with a diagnosis of Acute intractable abdominal pain likely from hemoperitoneum/abdominal wall hematoma. PMHx cancer, CKF, anxiety, anemia, schizophrenia, kidney stones. Denies diarrhea, constipation, fever, chills, chest pain, shortness of breath, dizziness, dysuria, hematuria. No other associated symptoms, modifiers, recent injuries or sick contacts present at this time. Chief Complaint: Abdominal Pain Time Seen by MD: 04:05 Primary Care Provider: PT UNSURE Reviewed Notes: Medications, Allergies Allergies: Coded Allergies: NO KNOWN ALLERGIES (Unverified , 06/02/14) Home Meds Active Scripts Tramadol Hcl (Tramadol Hcl) 50 Mg Tab, 50 MG PO BID for 5 Days, #10 TAB Prov:MYRA PA MD 10/22/23 Ondansetron Odt 4MG Tab (ZOFRAN PO) 4 Mg Tb, 4 MG PO QID for 10 Days, #40 TAB ODT TAB-DISSOLVE IN MOUTH, THEN SWALLOW Prov:MYRA PA MD 10/22/23 Colchicine (Colchicine) 0.6 Mg Cap, 0.6 MG PO DAILY for 30 Days, #3 CAP Prov:JOSIE PALMER PUNCH MACHINE OPERATOR 10/07/23 Aspirin Buffered (Abel Carb-Mag (Aspirin 325 mg) 1 Tab Tab, 1 TAB PO DAILY for 30 Days, #30 TAB Prov:JOSIE PALMER PUNCH MACHINE OPERATOR 10/07/23 Hydrocodone-Acetaminophen (Hydrocodone Bitartrate/AC 5-325 mg) 1 Tab Tab, 1 TAB PO Q6HP PRN for 4 Days, #16 TAB Prov:JOSIE PALMER NP 10/07/23 Reported Medications Morphine Sulfate (Morphine Sulfate) 30 Mg Tab, 1 TAB PO QID, #120 TAB 10/05/23 Hydrocodone-Acetaminophen (Hydrocodone Bitartrate/AC 5-325 mg) 1 Tab Tab, 1 TAB PO, TAB 10/05/23 Information Source: Patient Mode of Arrival: Ambulatory Timing: Days Duration: Since onset Prehospital treatment: None Quality: Sharp Severity: Moderate Recent: None Recent Hx of: None Pain Location: Diffuse Associated sign and symptoms: Nausea, Vomiting, Abdominal Pain Past Medical History PAST MEDICAL HISTORY: Anemia, Anxiety, Cancer, CKF, Kidney Stones, Schizophrenia, UTI'S Surgical History: Denies all surgeries Family History Family History: Reviewed,noncontributory to illness, Family hx of Cancer, Family hx of HTN Social History Smoker: Non-Smoker Alcohol: Denies ETOH Use Drugs: Other Lives In: Home Constitutional: denies: chills, diaphoresis, fatigue, fever, malaise, sweats, weakness, others EENTM: denies: blurred vision, double vision, ear bleeding, ear discharge, ear drainage, ear pain, ear ringing, eye pain, eye redness, hearing loss, mouth pain, mouth swelling, nasal discharge, nose bleeding, nose congestion, nose pain, photophobia, tearing, throat pain, throat swelling, voice changes, others Respiratory: denies: cough, hemoptysis, orthopnea, SOB at rest, shortness of breath, SOB with excertion, stridor, wheezing, others Cardiovascular: denies: chest pain, dizzy spells, diaphoresis, Dyspnea on exertion, edema, irregular heart beat, left arm pain, lightheadedness, palpitations, PND, syncope, others Gastrointestinal: reports: abdominal pain, nausea, vomiting; denies: abdomen distended, blood streaked bowels, constipated, diarrhea, dysphagia, difficulty swallowing, hematemesis, melena, poor appetite, poor fluid intake, rectal bleeding, rectal pain, others Genitourinary: reports: flank pain; denies: burning, dysuria, frequency, hematuria, incontinence, penile discharge, penile sore, pain, testicle pain, testicle swelling, urgency, others Neurological: denies: dizziness, fainting, headache, left sided numbness, left sided weakness, numbness, paresthesia, pre-existing deficit, right sided numbness, right sided weakness, seizure, speech problems, tingling, tremors, weakness, others Musculoskeletal: denies: back pain, gout, joint pain, joint swelling, muscle pain, muscle stiffness, neck pain, others Integumetry: denies: bruises, change in color, change in hair/nails, dryness, laceration, lesions, lumps, rash, wounds, others Allergic/Immunocompromised: denies: Difficulty Healing, Frequent Infections, Hives, Itching, others Hematologic/Lymphatic: denies: anemia, blood clots, easy bleeding, easy bruising, swollen glands, others Endocrine: denies: excessive hunger, excessive sweating, excessive thirst, excessive urination, flushing, intolerance to cold, intolerance to heat, unexplained weight gain, unexplained weight loss, others Psychiatric: denies: anxiety, bipolar disorder, depression, hopeless, panic disorder, schizophrenia, sleepless, suicidal, others All Other Systems: Reviewed and Negative Physical Exam General Appearance: Normal HEENT: Normal ENT Inspection, Pharynx Normal, TMs Normal Neck: Full Range of Motion, Non-Tender, Normal, Normal Inspection Respiratory: Chest Non-Tender, Lungs Clear, No Accessory Muscle Use, No Respiratory Distress, Normal Breath Sounds Cardiovascular: No Edema, No JVD, No Murmur, No Gallop, Normal Peripheral Pulses, Regular Rate/Rhythm Breast Exam: Deferred Gastrointestinal: No Organomegaly, Non Tender, No Pulsatile Mass, Normal Bowel Sounds, Soft Genitalia: Deferred Pelvic: Deferred Rectal: Deferred Extremities: No calf tenderness, Normal capillary refill, Normal inspection, Normal range of motion, Non-tender, No pedal edema Musculoskeletal : Apperance: Normal Neurologic: Alert, tile power shear operator II-XII nml as Tested, No Motor Deficits, Normal Affect, Normal Mood, No Sensory Deficits Cerebellar Function: Normal Reflexes: Normal Skin: Dry, Normal Color, Warm Lymphatic: No Adenopathy Was a procedure done? Was a procedure done?: No GI differential Dx Differential Diagnosis: Gastroenteritis X-Ray, Labs, Meds, VS Vital Signs Date Time Temp Pulse Resp B/P (MAP) Pulse Ox O2 Delivery O2 Flow Rate FiO2 11/04/24 03:55 98.4 82 15 110/90 (97) 98 98.4 Lab Test 11/04/24 04:20 11/04/24 04:00 Range/Units White Blood Count 4.7 4.4-10.8 10^3/uL Red Blood Count 4.51 4.5-5.90 10^6/uL Hemoglobin 13.6 13.5-17.5 g/dL Hematocrit 41.1 41.0-53.0 % Mean Corpuscular Volume 91.2 80.0-100.0 fL Mean Corpuscular Hemoglobin 30.2 28.0-32.0 pg Mean Corpuscular Hemoglobin Concent 33.1 32.0-36.0 g/dL Red Cell Distribution Width 13.4 11.8-14.3 % Platelet Count 256 140-450 10^3/uL Mean Platelet Volume 7.4 6.9-10.8 fL Neutrophils (%) (Auto) 63.4 37.0-80.0 % Lymphocytes (%) (Auto) 21.7 10.0-50.0 % Monocytes (%) (Auto) 6.7 0.0-12.0 % Eosinophils (%) (Auto) 7.2 H 0.0-7.0 % Basophils (%) (Auto) 1.0 0.0-2.0 % Neutrophils # (Auto) 3.0 1.6-8.6 10 ^3/uL Lymphocytes # (Auto) 1.0 0.4-5.4 10 ^3/uL Monocytes # (Auto) 0.3 0-1.3 10 ^3/uL Eosinophils # (Auto) 0.3 0-0.8 10 ^3/uL Basophils # (Auto) 0 0-0.2 10 ^3/uL Nucleated Red Blood Cells 0.2 % Sodium Level 134 L 136-145 mmol/L Potassium Level 3.3 L 3.5-5.1 mmol/L Chloride Level 106 98-107 mmol/L Carbon Dioxide Level 15 L 20-31 mmol/L Anion Gap 13 5-15 Blood Urea Nitrogen 15 9-23 mg/dL Creatinine 1.84 H 0.700-1.30 mg/dL Glomerular Filtration Rate Calc 46 >90 mL/min BUN/Creatinine Ratio 8.2 L 10.0-20.0 Serum Glucose 98 74-106 mg/dL Calcium Level 9.3 8.7-10.4 mg/dL Urine Color Colorless Yellow Urine Clarity Clear Clear Urine pH 6.0 5.0-9.0 Urine Specific [place] 1.005 1.001-1.035 Urine Protein Negative Negative Urine Ketones Negative Negative Urine Blood Negative Negative /uL Urine Nitrite Negative Negative Urine Bilirubin Negative Negative Urine Urobilinogen Normal Negative mg/dL Urine Leukocyte Esterase Negative Negative /uL Urine RBC None seen 0 - 3 /hpf Urine Microscopic WBC < 1 0-3 /HPF Urine Squamous Epithelial Cells None seen <5 /hpf Urine Bacteria Few H None Seen /hpf Urine Glucose Normal Normal mg/dL Time of 1ST Reevaluation: 04:35 Reevaluation 1ST: Unchanged Patient Education/Counseling: Diagnosis, Treatment, Prognosis Family Education/Counseling: No Family Present SEPSIS Sepsis Screen Date sepsis recognized/suspect: Nov 04, 2024 Time Sepsis recognized/suspect: 344 Recent Procedure: No On Antibiotic Therapy: No Respiratory Rate >20: No Heart Rate >90: No Temp<36 C (96.8 F) or >38.3 C: No SBP <90 or MAP <65 mmHG: No New Acute Mental Status Change: No Is the patient on CPAP, BIPAP,: No Vital Signs Date Time Temp Pulse Resp B/P (MAP) Pulse Ox O2 Delivery O2 Flow Rate FiO2 11/04/24 03:55 98.4 82 15 110/90 (97) 98 98.4 Laboratory Tests Test 11/04/24 04:20 White Blood Count 4.7 10^3/uL (4.4-10.8) Departure 1 Departure Time of Disposition: 05:29 (Patient likely with gastroenteritis. We will discharge patient home with outpatient follow up) Impression: Primary Impression: Gastroenteritis Disposition: 01 HOME / SELF CARE / HOMELESS Condition: Stable Additional Instructions: You likely have gastroenteritis. It is important to stay well hydrated and well rested. This usually resolves within 1 week. If your symptoms worsen or you have any other concerns please return to the ER. Discharged With: Self Critical Care Note Critical Care Time?: No Stability Stability form required: No I personally scribed for MOLLY DENNIS MD ([email or web address]) on 11/04/24 at 04:10. Electronically submitted by Irish Clay ([email or web address]). MOLLY DENNIS MD Nov 04, 2024 04:10
[2024-11-04 04:56] LABS: Hematocrit 41.1 % (41.0-53.0); Hemoglobin 13.6 g/dL (13.5-17.5); Mean Corpuscular Hemoglobin 30.2 pg (28.0-32.0); Mean Corpuscular Volume 91.2 fL (80.0-100.0); Nucleated Red Blood Cells % 0.2 %
[2024-11-04 05:05] LABS: Chloride 106 mmol/L (98-107)
[2024-11-04 05:06] LABS: Anion Gap 13 (5-15); Calcium 9.3 mg/dL (8.7-10.4)
[2024-11-04 05:11] LABS: BUN/Creatinine Ratio 8.2 (10.0-20.0); Blood Urea Nitrogen 15 mg/dL (9-23); Glucose 98 mg/dL (74-106)
[2024-11-04 05:12] LABS: Urine Protein, UAD Negative (Negative)
[2024-11-04 05:13] LABS: Carbon Dioxide 15 mmol/L (20-31); Potassium 3.3 mmol/L (3.5-5.1); Sodium 134 mmol/L (136-145)
[2024-11-04] MEDS: ONDANSETRON ODT 4 MG TAB PO ONE (05:51)
[2024-11-04] MEDS: FAMOTIDINE 20 MG TAB PO ONE (05:52)
[2024-11-04 05:53] VITALS: BP 119/91; PULSE 77; RESP 19; TEMP 98.3
[2024-11-04 05:54] VITALS: O2SAT 98
== END 2024-11-04 05:59 | disposition home or self-care (01) ==
LOC: ER 03:31
DX: K52.9 Noninfective gastroenteritis and colitis, unspecified (principal); F41.9 Anxiety disorder, unspecified; D64.9 Anemia, unspecified; F20.9 Schizophrenia, unspecified; Z79.899 Other long term (current) drug therapy; Z87.440 Personal history of urinary (tract) infections; Z87.442 Personal history of urinary calculi
CPT/HCPCS: 36415; 80048; 81001; 85025; 99283; Q0162

== ENCOUNTER 2024-11-12 10:39 | Emergency (ER) | payer MEDICAID ==
[~2024-11-12] VITALS: Ht 188 cm; Wt 78.9 kg
[2024-11-12 10:42] VITALS: BP 143/96; PULSE 91; RESP 17; TEMP 98.6; O2SAT 97
--- NOTE | 2024-11-12 11:30 | ED.PDOC ---
GI ASSESSMENT HPI Comments This is a 44 year old male presenting to the ED with chief complaint of abdominal pain. Patient reports that he was previously seen in the ED last night for the same complaint of abdominal pain with associated N/V. Patient relays that he had eloped from the ED prior to admission and only returned due to his symptoms being persistent. Patient had imaging studies and lab work already performed. Patient denies any diarrhea, fever, chills, chest pain, or SOB. Chief Complaint: Abdominal Pain Time Seen by MD: 11:27 Primary Care Provider: PT UNSURE Reviewed Notes: Nurses Notes, Medications, Allergies Allergies: Coded Allergies: NO KNOWN ALLERGIES (Unverified , 06/02/14) Home Meds Active Scripts Tramadol Hcl (Tramadol Hcl) 50 Mg Tab, 50 MG PO BID for 5 Days, #10 TAB Prov:MYRA PA MD 10/22/23 Ondansetron Odt 4MG Tab (ZOFRAN PO) 4 Mg Tb, 4 MG PO QID for 10 Days, #40 TAB ODT TAB-DISSOLVE IN MOUTH, THEN SWALLOW Prov:MYRA PA MD 10/22/23 Colchicine (Colchicine) 0.6 Mg Cap, 0.6 MG PO DAILY for 30 Days, #3 CAP Prov:JOSIE PALMER NP 10/07/23 Aspirin Buffered (Abel Carb-Mag (Aspirin 325 mg) 1 Tab Tab, 1 TAB PO DAILY for 30 Days, #30 TAB Prov:JOSIE PALMER HOTEL BAGGAGE HANDLER 10/07/23 Hydrocodone-Acetaminophen (Hydrocodone Bitartrate/AC 5-325 mg) 1 Tab Tab, 1 TAB PO Q6HP PRN for 4 Days, #16 TAB Prov:JOSIE PALMER NP 10/07/23 Reported Medications Morphine Sulfate (Morphine Sulfate) 30 Mg Tab, 1 TAB PO QID, #120 TAB 10/05/23 Hydrocodone-Acetaminophen (Hydrocodone Bitartrate/AC 5-325 mg) 1 Tab Tab, 1 TAB PO, TAB 10/05/23 Information Source: Patient Mode of Arrival: Ambulatory Timing: Days Duration: Since onset Prehospital treatment: None Quality: Aching Vomitus: Watery Stool: Normal Severity: Moderate Recent: None Recent Hx of: None Pain Location: Diffuse Modifying Factors: Nothing Associated sign and symptoms: Nausea, Vomiting, Abdominal Pain Past Medical History PAST MEDICAL HISTORY: Anemia, Anxiety, Cancer, CKF, Kidney Stones, Schizophrenia, UTI'S Surgical History: Denies all surgeries Family History Family History: Reviewed,noncontributory to illness, Family hx of Cancer, Family hx of HTN Social History Smoker: Non-Smoker Alcohol: Denies ETOH Use Drugs: Other Lives In: Home Constitutional: denies: chills, diaphoresis, fatigue, fever, malaise, sweats, weakness, others EENTM: denies: blurred vision, double vision, ear bleeding, ear discharge, ear drainage, ear pain, ear ringing, eye pain, eye redness, hearing loss, mouth pain, mouth swelling, nasal discharge, nose bleeding, nose congestion, nose pain, photophobia, tearing, throat pain, throat swelling, voice changes, others Respiratory: denies: cough, hemoptysis, orthopnea, SOB at rest, shortness of breath, SOB with excertion, stridor, wheezing, others Cardiovascular: denies: chest pain, dizzy spells, diaphoresis, Dyspnea on exertion, edema, irregular heart beat, left arm pain, lightheadedness, palpitations, PND, syncope, others Gastrointestinal: reports: abdominal pain, nausea, vomiting; denies: abdomen distended, blood streaked bowels, constipated, diarrhea, dysphagia, difficulty swallowing, hematemesis, melena, poor appetite, poor fluid intake, rectal bleeding, rectal pain, others Genitourinary: denies: burning, dysuria, flank pain, frequency, hematuria, incontinence, penile discharge, penile sore, pain, testicle pain, testicle swelling, urgency, others Neurological: denies: dizziness, fainting, headache, left sided numbness, left sided weakness, numbness, paresthesia, pre-existing deficit, right sided numbness, right sided weakness, seizure, speech problems, tingling, tremors, weakness, others Musculoskeletal: denies: back pain, gout, joint pain, joint swelling, muscle pain, muscle stiffness, neck pain, others Integumetry: denies: bruises, change in color, change in hair/nails, dryness, laceration, lesions, lumps, rash, wounds, others Allergic/Immunocompromised: denies: Difficulty Healing, Frequent Infections, Hives, Itching, others Hematologic/Lymphatic: denies: anemia, blood clots, easy bleeding, easy bruising, swollen glands, others Endocrine: denies: excessive hunger, excessive sweating, excessive thirst, excessive urination, flushing, intolerance to cold, intolerance to heat, unexplained weight gain, unexplained weight loss, others Psychiatric: denies: anxiety, bipolar disorder, depression, hopeless, panic disorder, schizophrenia, sleepless, suicidal, others All Other Systems: Reviewed and Negative Physical Exam General Appearance: Moderate Distress, Normal HEENT: Normal ENT Inspection, Pharynx Normal, TMs Normal Neck: Full Range of Motion, Non-Tender, Normal, Normal Inspection Respiratory: Chest Non-Tender, Lungs Clear, No Accessory Muscle Use, No Respiratory Distress, Normal Breath Sounds Cardiovascular: No Edema, No JVD, No Murmur, No Gallop, Normal Peripheral Pulses, Regular Rate/Rhythm Breast Exam: Deferred Gastrointestinal: No Organomegaly, Non Tender, No Pulsatile Mass, Normal Bowel Sounds, Soft Genitalia: Deferred Pelvic: Deferred Rectal: Deferred Extremities: No calf tenderness, Normal capillary refill, Normal inspection, Normal range of motion, Non-tender, No pedal edema Musculoskeletal : Apperance: Normal Neurologic: Alert, elevator inspector II-XII nml as Tested, No Motor Deficits, Normal Affect, Normal Mood, No Sensory Deficits Cerebellar Function: Normal Reflexes: Normal Skin: Dry, Normal Color, Warm Peripheral Pulses: 3+ Radial (R), 3+ Radial (L) Lymphatic: No Adenopathy Was a procedure done? Was a procedure done?: No GI differential Dx Differential Diagnosis: Constipation, Diverticular disease, Esophagitis, Gastritis/PUD, Gastroenteritis X-Ray, Labs, Meds, VS Vital Signs Date Time Temp Pulse Resp B/P (MAP) Pulse Ox O2 Delivery O2 Flow Rate FiO2 11/12/24 10:42 98.6 91 17 143/96 97 98.6 Patient alert. No sign of distress. Vitals stable. Answering questions. Ambulating. Abdomen is soft nontender. Was just in this ER left. CT scan was done few hours ago which did not show any acute process. Chronic changes. He is able to do his regular duties. Explained to the patient. Was told to follow up with his primary care physician. Was told to come back if there is any problem. Time of 1ST Reevaluation: 12:26 Reevaluation 1ST: Improved Patient Education/Counseling: Diagnosis, Treatment Family Education/Counseling: No Family Present SEPSIS Sepsis Screen Date sepsis recognized/suspect: Nov 12, 2024 Time Sepsis recognized/suspect: 1043 Recent Procedure: No On Antibiotic Therapy: No Respiratory Rate >20: No Heart Rate >90: No Temp<36 C (96.8 F) or >38.3 C: No SBP <90 or MAP <65 mmHG: No New Acute Mental Status Change: No Is the patient on CPAP, BIPAP,: No Vital Signs Date Time Temp Pulse Resp B/P (MAP) Pulse Ox O2 Delivery O2 Flow Rate FiO2 11/12/24 10:42 98.6 91 17 143/96 97 98.6 Departure 1 Departure Time of Disposition: 12:01 Impression: Primary Impression: Gastritis Qualified Codes: K29.00 - Acute gastritis without bleeding Disposition: 01 HOME / SELF CARE / HOMELESS Condition: Good e-Prescriptions Pantoprazole Sodium Sesquihydr (Protonix) 40 Mg Tab 40 MG PO DAILY for 7 Days, #7 TAB Prov: SAQIB CHEN MD 11/12/24 Discharged With: Self Critical Care Note Critical Care Time?: No Stability Stability form required: No Heart Score Heart Score: Heart Score Response (Comments) Value History N/A 0 EKG N/A 0 Age N/A 0 Risk Factors N/A 0 Troponin N/A 0 Total 0 I personally scribed for SAQIB CHEN MD ([email or web address]) on 11/12/24 at 11:30. Electronically submitted by Anant Ortiz ([email or web address]). SAQIB CHEN MD Nov 12, 2024 11:30
[2024-11-12] MEDS ORDERED: PANT40TA2 PO (12:02)
== END 2024-11-12 12:21 | disposition home or self-care (01) ==
LOC: ER 10:39
DX: K29.00 Acute gastritis without bleeding (principal); F20.9 Schizophrenia, unspecified; F41.9 Anxiety disorder, unspecified; N18.9 Chronic kidney disease, unspecified; Z87.442 Personal history of urinary calculi; Z85.9 Personal history of malignant neoplasm, unspecified; Z86.2 Personal history of diseases of the blood and blood-forming organs and certain disorders involving the immune mechanism; Z87.440 Personal history of urinary (tract) infections; Z79.899 Other long term (current) drug therapy

== ENCOUNTER 2025-01-06 02:53 | Emergency (ER) | payer MEDICAID ==
[~2025-01-06] VITALS: Ht 188 cm; Wt 78.0 kg
[~2025-01-06 02:53] MED LIST changes: +PANT40TA2 PO
[2025-01-06 03:38] LABS: Hematocrit 38.8 % (41.0-53.0); Hemoglobin 12.7 g/dL (13.5-17.5); Mean Corpuscular Hemoglobin 29.8 pg (28.0-32.0); Mean Corpuscular Volume 90.6 fL (80.0-100.0); Nucleated Red Blood Cells % 0.0 %
--- NOTE | 2025-01-06 03:58 | ED.PDOC ---
History of Present Illness HPI Comments 44 M presents with c/c of nonradiating, epigastric abdominal pain, with associated nausea and vomiting. Patient reports pain being a 10/10 in severity and vomiting 1x, this morning. Denial of any bloody or biliuos vomitus, diarrhea, urinary symptoms, fever, chills, or further associated symptoms. Chief Complaint: Abdominal Pain Time Seen by MD: 03:45 Primary Care Provider: PT UNSURE Reviewed Notes: Nurses Notes, Medications, Allergies Allergies: Coded Allergies: NO KNOWN ALLERGIES (Unverified , 06/02/14) Home Meds Active Scripts Pantoprazole Sodium Sesquihydr (Protonix) 40 Mg Tab, 40 MG PO DAILY for 7 Days, #7 TAB Prov:SAQIB CHEN MD 11/12/24 Tramadol Hcl (Tramadol Hcl) 50 Mg Tab, 50 MG PO BID for 5 Days, #10 TAB Prov:MYRA PA MD 10/22/23 Ondansetron Odt 4MG Tab (ZOFRAN PO) 4 Mg Tb, 4 MG PO QID for 10 Days, #40 TAB ODT TAB-DISSOLVE IN MOUTH, THEN SWALLOW Prov:MYRA PA MD 10/22/23 Colchicine (Colchicine) 0.6 Mg Cap, 0.6 MG PO DAILY for 30 Days, #3 CAP Prov:JOSIE PALMER PRODUCTION STAGE MANAGER 10/07/23 Aspirin Buffered (Abel Carb-Mag (Aspirin 325 mg) 1 Tab Tab, 1 TAB PO DAILY for 30 Days, #30 TAB Prov:JOSIE PALMER PRODUCTION STAGE MANAGER 10/07/23 Hydrocodone-Acetaminophen (Hydrocodone Bitartrate/AC 5-325 mg) 1 Tab Tab, 1 TAB PO Q6HP PRN for 4 Days, #16 TAB Prov:JOSIE PALMER PRODUCTION STAGE MANAGER 10/07/23 Reported Medications Morphine Sulfate (Morphine Sulfate) 30 Mg Tab, 1 TAB PO QID, #120 TAB 10/05/23 Hydrocodone-Acetaminophen (Hydrocodone Bitartrate/AC 5-325 mg) 1 Tab Tab, 1 TAB PO, TAB 10/05/23 Information Source: Patient Mode of Arrival: Ambulatory Past Medical History PAST MEDICAL HISTORY: Anemia, Anxiety, Cancer, CKF, Kidney Stones, Schizophrenia, UTI'S Surgical History: Denies all surgeries Family History Family History: Reviewed,noncontributory to illness, Family hx of Cancer, Family hx of HTN Social History Smoker: Non-Smoker Alcohol: Denies ETOH Use Drugs: Other Lives In: Home All Other Systems: Reviewed and Negative (As per HPI) Physical Exam General Appearance: No Apparent Distress, Normal HEENT: Normal ENT Inspection, Pharynx Normal, TMs Normal Neck: Full Range of Motion, Non-Tender, Normal, Normal Inspection Respiratory: Chest Non-Tender, Lungs Clear, No Accessory Muscle Use, No Respiratory Distress, Normal Breath Sounds Cardiovascular: No Edema, No JVD, No Murmur, No Gallop, Normal Peripheral Pulse s, Regular Rate/Rhythm Breast Exam: Deferred Gastrointestinal: No Organomegaly, Non Tender, No Pulsatile Mass, Normal Bowel Sounds, Soft Genitalia: Deferred Pelvic: Deferred Rectal: Deferred Extremities: No calf tenderness, Normal capillary refill, Normal inspection, Normal range of motion, Non-tender, No pedal edema Musculoskeletal : Apperance: Normal Neurologic: Alert, watch dial stoner II-XII nml as Tested, No Motor Deficits, Normal Affect, Normal Mood, No Sensory Deficits Cerebellar Function: Normal Reflexes: Normal Skin: Dry, Normal Color, Warm Lymphatic: No Adenopathy Was a procedure done? Was a procedure done?: No Differential Dx Considerations may include: Differential diagnosis includes but not limited to: Gastritis, PUD, pancreatitis, cholecystitis, cholangitis, small bowel obstruction, intestinal perforation and others X-Ray, Labs, Meds, VS Vital Signs Date Time Temp Pulse Resp B/P (MAP) Pulse Ox O2 Delivery O2 Flow Rate FiO2 01/06/25 02:56 97.7 83 16 124/77 97 97.7 Lab Test 01/06/25 03:19 Range/Units White Blood Count 4.7 4.4-10.8 10^3/uL Red Blood Count 4.28 L 4.5-5.90 10^6/uL Hemoglobin 12.7 L 13.5-17.5 g/dL Hematocrit 38.8 L 41.0-53.0 % Mean Corpuscular Volume 90.6 80.0-100.0 fL Mean Corpuscular Hemoglobin 29.8 28.0-32.0 pg Mean Corpuscular Hemoglobin Concent 32.9 32.0-36.0 g/dL Red Cell Distribution Width 13.6 11.8-14.3 % Platelet Count 277 140-450 10^3/uL Mean Platelet Volume 6.8 L 6.9-10.8 fL Neutrophils (%) (Auto) 64.7 37.0-80.0 % Lymphocytes (%) (Auto) 18.8 10.0-50.0 % Monocytes (%) (Auto) 7.2 0.0-12.0 % Eosinophils (%) (Auto) 8.5 H 0.0-7.0 % Basophils (%) (Auto) 0.8 0.0-2.0 % Neutrophils # (Auto) 3.1 1.6-8.6 10 ^3/uL Lymphocytes # (Auto) 0.9 0.4-5.4 10 ^3/uL Monocytes # (Auto) 0.3 0-1.3 10 ^3/uL Eosinophils # (Auto) 0.4 0-0.8 10 ^3/uL Basophils # (Auto) 0 0-0.2 10 ^3/uL Nucleated Red Blood Cells 0.0 % Sodium Level 140 136-145 mmol/L Potassium Level 3.1 L 3.5-5.1 mmol/L Chloride Level 108 H 98-107 mmol/L Carbon Dioxide Level 18 L 20-31 mmol/L Anion Gap 14 5-15 Blood Urea Nitrogen 15 9-23 mg/dL Creatinine 2.12 H 0.700-1.30 mg/dL Glomerular Filtration Rate Calc 38 >90 mL/min BUN/Creatinine Ratio 7.1 L 10.0-20.0 Serum Glucose 103 74-106 mg/dL Calcium Level 9.3 8.7-10.4 mg/dL Total Bilirubin 0.7 0.2-1.0 mg/dL Aspartate Amino Transferase (AST) 61 H 13-40 U/L Alanine Aminotransferase (ALT) 59 H 7-40 U/L Alkaline Phosphatase 133 H 46-116 U/L Total Protein 7.3 5.7-8.2 g/dL Albumin 4.4 3.2-4.8 g/dL Lipase 51 12-53 U/L Time of 1ST Reevaluation: 04:15 Reevaluation 1ST: Unchanged Patient Education/Counseling: Treatment, Need For Follow Up Family Education/Counseling: No Family Present SEPSIS Sepsis Screen Date sepsis recognized/suspect: Jan 06, 2025 Time Sepsis recognized/suspect: 255 Recent Procedure: No On Antibiotic Therapy: No Respiratory Rate >20: No Heart Rate >90: No Temp<36 C (96.8 F) or >38.3 C: No SBP <90 or MAP <65 mmHG: No New Acute Mental Status Change: No Is the patient on CPAP, BIPAP,: No Physician Orders Urinalysis (01/06/25 03:10) Vital Signs Date Time Temp Pulse Resp B/P (MAP) Pulse Ox O2 Delivery O2 Flow Rate FiO2 01/06/25 02:56 97.7 83 16 124/77 97 97.7 Laboratory Tests Test 01/06/25 03:19 White Blood Count 4.7 10^3/uL (4.4-10.8) Departure 1 Departure Time of Disposition: 05:30 Impression: Primary Impression: Abdominal pain Additional Impression: CKD (chronic kidney disease), stage III Disposition: 01 HOME / SELF CARE / HOMELESS Condition: Stable Discharged With: Self Critical Care Note Critical Care Time?: No Stability Stability form required: No Heart Score Heart Score: Heart Score Response (Comments) Value History N/A 0 EKG N/A 0 Age N/A 0 Risk Factors N/A 0 Troponin N/A 0 Total 0 I personally scribed for JOANN NICE MD ([email or web address]) on 01/06/25 at 03:58. Electronically submitted by Noel Blue [email or web address]). JOANN NICE MD Jan 06, 2025 03:58
[2025-01-06 04:09] LABS: Albumin 4.4 g/dL (3.2-4.8); Anion Gap 14 (5-15); BUN/Creatinine Ratio 7.1 (10.0-20.0); Blood Urea Nitrogen 15 mg/dL (9-23); Calcium 9.3 mg/dL (8.7-10.4); Glucose 103 mg/dL (74-106); Lipase 51 U/L (12-53); Sodium 140 mmol/L (136-145); Total Protein 7.3 g/dL (5.7-8.2)
[2025-01-06 04:10] LABS: Bilirubin, Total 0.7 mg/dL (0.2-1.0)
[2025-01-06 04:40] LABS: Carbon Dioxide 18 mmol/L (20-31); Chloride 108 mmol/L (98-107); Potassium 3.1 mmol/L (3.5-5.1)
[2025-01-06 04:41] LABS: Alanine Aminotransferase 59 U/L (7-40); Alkaline Phosphatase 133 U/L (46-116)
[2025-01-06 05:42] VITALS: BP 112/76; PULSE 75; RESP 14; TEMP 98.5; O2SAT 97
[2025-01-06] MEDS: FAMOTIDINE 20 MG TAB PO ONE (05:43)
[2025-01-06] MEDS: POTASSIUM CHL 20 Meq TABLET PO ONE (05:43)
== END 2025-01-06 06:05 | disposition home or self-care (01) ==
LOC: ER 02:53
DX: R10.13 Epigastric pain (principal); N18.30 Chronic kidney disease, stage 3 unspecified; F20.9 Schizophrenia, unspecified; F41.9 Anxiety disorder, unspecified; Z79.899 Other long term (current) drug therapy; Z87.440 Personal history of urinary (tract) infections; Z87.442 Personal history of urinary calculi
CPT/HCPCS: 36415; 80053; 83690; 85025

== ENCOUNTER 2025-01-29 02:36 | Emergency (ER) | payer MEDICAID ==
[~2025-01-29] VITALS: Ht 188 cm; Wt 78.5 kg
--- NOTE | 2025-01-29 02:53 | ED.PDOC ---
GI ASSESSMENT HPI Comments 44-year-old male who came to the ER for abdominal pain. Patient seen here multiple times for abdominal pain. Has history of schizophrenia, Abdominal wall hematoma and History of colon cancer, status post colectomy, and ileostomy. Currently complaining again of abdominal pain for the past two days, with the episodes of nausea and vomiting Chief Complaint: Abdominal Pain Time Seen by MD: 02:52 Primary Care Provider: PT UNSURE Reviewed Notes: Nurses Notes Allergies: Coded Allergies: NO KNOWN ALLERGIES (Unverified , 06/02/14) Home Meds Active Scripts Pantoprazole Sodium Sesquihydr (Protonix) 40 Mg Tab, 40 MG PO DAILY for 7 Days, #7 TAB Prov:SAQIB CHEN MD 11/12/24 Tramadol Hcl (Tramadol Hcl) 50 Mg Tab, 50 MG PO BID for 5 Days, #10 TAB Prov:MYRA PA MD 10/22/23 Ondansetron Odt 4MG Tab (ZOFRAN PO) 4 Mg Tb, 4 MG PO QID for 10 Days, #40 TAB ODT TAB-DISSOLVE IN MOUTH, THEN SWALLOW Prov:MYRA PA MD 10/22/23 Colchicine (Colchicine) 0.6 Mg Cap, 0.6 MG PO DAILY for 30 Days, #3 CAP Prov:JOSIE PALMER OFFSET SECOND PRESS OPERATOR 10/07/23 Aspirin Buffered (Abel Carb-Mag (Aspirin 325 mg) 1 Tab Tab, 1 TAB PO DAILY for 30 Days, #30 TAB Prov:JOSIE PALMER OFFSET SECOND PRESS OPERATOR 10/07/23 Hydrocodone-Acetaminophen (Hydrocodone Bitartrate/AC 5-325 mg) 1 Tab Tab, 1 TAB PO Q6HP PRN for 4 Days, #16 TAB Prov:JOSIE PALMER OFFSET SECOND PRESS OPERATOR 10/07/23 Reported Medications Morphine Sulfate (Morphine Sulfate) 30 Mg Tab, 1 TAB PO QID, #120 TAB 10/05/23 Hydrocodone-Acetaminophen (Hydrocodone Bitartrate/AC 5-325 mg) 1 Tab Tab, 1 TAB PO, TAB 10/05/23 Information Source: Patient Mode of Arrival: Ambulatory Timing: Days Duration: Intermittent Quality: Aching Vomitus: Watery Stool: Normal Severity: Moderate Recent: Recent Surgery Recent Hx of: Abdominal Surgery Pain Location: Diffuse Associated sign and symptoms: Nausea, Vomiting, Abdominal Pain Past Medical History PAST MEDICAL HISTORY: Anemia, Anxiety, Cancer, CKF, Kidney Stones, Schizop hrenia, UTI'S Past Medical History (Other): Surgical History: Denies all surgeries Surgical History (Other): Colectomy ileostomy Family History Family History: Reviewed,noncontributory to illness, Family hx of Cancer, Family hx of HTN Social History Smoker: Non-Smoker Alcohol: Denies ETOH Use Drugs: Other Lives In: Homeless Constitutional: denies: chills, diaphoresis, fatigue, fever, malaise, sweats, weakness, others EENTM: denies: blurred vision, double vision, ear bleeding, ear discharge, ear drainage, ear pain, ear ringing, eye pain, eye redness, hearing loss, mouth pain, mouth swelling, nasal discharge, nose bleeding, nose congestion, nose pain, photophobia, tearing, throat pain, throat swelling, voice changes, others Respiratory: denies: cough, hemoptysis, orthopnea, SOB at rest, shortness of breath, SOB with excertion, stridor, wheezing, others Cardiovascular: denies: chest pain, dizzy spells, diaphoresis, Dyspnea on exertion, edema, irregular heart beat, left arm pain, lightheadedness, palpitations, PND, syncope, others Gastrointestinal: reports: abdominal pain, nausea, vomiting; denies: abdomen distended, blood streaked bowels, constipated, diarrhea, dysphagia, difficulty swallowing, hematemesis, melena, poor appetite, poor fluid intake, rectal bleeding, rectal pain, others Genitourinary: denies: burning, dysuria, flank pain, frequency, hematuria, incontinence, penile discharge, penile sore, pain, testicle pain, testicle swelling, urgency, others Neurological: denies: dizziness, fainting, headache, left sided numbness, left sided weakness, numbness, paresthesia, pre-existing deficit, right sided numbness, right sided weakness, seizure, speech problems, tingling, tremors, weakness, others Musculoskeletal: denies: back pain, gout, joint pain, joint swelling, muscle pain, muscle stiffness, neck pain, others Integumetry: denies: bruises, change in color, change in hair/nails, dryness, laceration, lesions, lumps, rash, wounds, others Allergic/Immunocompromised: denies: Difficulty Healing, Frequent Infections, Hives, Itching, others Hematologic/Lymphatic: denies: anemia, blood clots, easy bleeding, easy bruising, swollen glands, others Endocrine: denies: excessive hunger, excessive sweating, excessive thirst, excessive urination, flushing, intolerance to cold, intolerance to heat, unexplained weight gain, unexplained weight loss, others Psychiatric: denies: anxiety, bipolar disorder, depression, hopeless, panic disorder, schizophrenia, sleepless, suicidal, others Physical Exam General Appearance: No Apparent Distress, Normal HEENT: Normal ENT Inspection, Pharynx Normal, TMs Normal Neck: Full Range of Motion, Non-Tender, Normal, Normal Inspection Respiratory: Chest Non-Tender, Lungs Clear, No Accessory Muscle Use, No Respiratory Distress, Normal Breath Sounds Cardiovascular: No Edema, No JVD, No Murmur, No Gallop, Normal Peripheral Pulses, Regular Rate/Rhythm Breast Exam: Deferred Gastrointestinal: No Organomegaly, Non Tender, No Pulsatile Mass, Normal Bowel Sounds, Soft Genitalia: Deferred Pelvic: Deferred Rectal: Deferred Extremities: No calf tenderness, Normal capillary refill, Normal inspection, Normal range of motion, Non-tender, No pedal edema Musculoskeletal : Apperance: Normal Neurologic: Alert, chicken sexer II-XII nml as Tested, No Motor Deficits, Normal Affect, Normal Mood, No Sensory Deficits Cerebellar Function: Normal Reflexes: Normal Skin: Dry, Normal Color, Warm Lymphatic: No Adenopathy Was a procedure done? Was a procedure done?: No GI differential Dx Differential Diagnosis: Diverticular disease, Gastritis/PUD, Gastroenteritis, Pancreatitis, UTI, Urolithiasis X-Ray, Labs, Meds, VS Vital Signs Date Time Temp Pulse Resp B/P (MAP) Pulse Ox O2 Delivery O2 Flow Rate FiO2 01/29/25 05:35 78 18 98 Room Air 01/29/25 05:19 98.1 78 18 110/76 (87) 98 98.1 01/29/25 04:41 66 01/29/25 02:37 99.0 89 18 126/85 97 99.0 Lab Test 01/29/25 02:52 Range/Units White Blood Count 4.1 L 4.4-10.8 10^3/uL Red Blood Count 4.26 L 4.5-5.90 10^6/uL Hemoglobin 12.6 L 13.5-17.5 g/dL Hematocrit 38.7 L 41.0-53.0 % Mean Corpuscular Volume 90.8 80.0-100.0 fL Mean Corpuscular Hemoglobin 29.6 28.0-32.0 pg Mean Corpuscular Hemoglobin Concent 32.6 32.0-36.0 g/dL Red Cell Distribution Width 13.9 11.8-14.3 % Platelet Count 232 140-450 10^3/uL Mean Platelet Volume 7.1 6.9-10.8 fL Neutrophils (%) (Auto) 59.7 37.0-80.0 % Lymphocytes (%) (Auto) 22.2 10.0-50.0 % Monocytes (%) (Auto) 6.7 0.0-12.0 % Eosinophils (%) (Auto) 10.6 H 0.0-7.0 % Basophils (%) (Auto) 0.8 0.0-2.0 % Neutrophils # (Auto) 2.5 1.6-8.6 10 ^3/uL Lymphocytes # (Auto) 0.9 0.4-5.4 10 ^3/uL Monocytes # (Auto) 0.3 0-1.3 10 ^3/uL Eosinophils # (Auto) 0.4 0-0.8 10 ^3/uL Basophils # (Auto) 0 0-0.2 10 ^3/uL Nucleated Red Blood Cells 0.1 % Sodium Level 143 136-145 mmol/L Potassium Level 3.3 L 3.5-5.1 mmol/L Chloride Level 112 H 98-107 mmol/L Carbon Dioxide Level 18 L 20-31 mmol/L Anion Gap 13 5-15 Blood Urea Nitrogen 16 9-23 mg/dL Creatinine 2.09 H 0.700-1.30 mg/dL Glomerular Filtration Rate Calc 39 >90 mL/min BUN/Creatinine Ratio 7.7 L 10.0-20.0 Serum Glucose 126 H 74-106 mg/dL Calcium Level 9.1 8.7-10.4 mg/dL Total Bilirubin 0.6 0.2-1.0 mg/dL Aspartate Amino Transferase (AST) 47 H 13-40 U/L Alanine Aminotransferase (ALT) 55 H 7-40 U/L Alkaline Phosphatase 118 H 46-116 U/L Total Protein 6.9 5.7-8.2 g/dL Albumin 4.2 3.2-4.8 g/dL Lipase 47 12-53 U/L Time of 1ST Reevaluation: 02:51 Reevaluation 1ST: Unchanged Patient Education/Counseling: Diagnosis, Treatment Family Education/Counseling: No Family Present SEPSIS Sepsis Screen Date sepsis recognized/suspect: Jan 29, 2025 Time Sepsis recognized/suspect: 0240 Recent Procedure: No On Antibiotic Therapy: No Respiratory Rate >20: No Heart Rate >90: No Temp<36 C (96.8 F) or >38.3 C: No SBP <90 or MAP <65 mmHG: No New Acute Mental Status Change: No Is the patient on CPAP, BIPAP,: No Physician Orders Electrocardigram (01/29/25 04:41) Vital Signs Date Time Temp Pulse Resp B/P (MAP) Pulse Ox O2 Delivery O2 Flow Rate FiO2 01/29/25 05:35 78 18 98 Room Air 01/29/25 05:19 98.1 78 18 110/76 (87) 98 98.1 01/29/25 04:41 66 01/29/25 02:37 99.0 89 18 126/85 97 99.0 Laboratory Tests Test 01/29/25 02:52 White Blood Count 4.1 10^3/uL (4.4-10.8) L Departure 1 Departure Time of Disposition: 06:00 Impression: Primary Impression: Abdominal pain Additional Impression: Total body pain Disposition: 01 HOME / SELF CARE / HOMELESS Condition: Stable Discharged With: Self Critical Care Note Critical Care Time?: No Stability Stability form required: No Heart Score Heart Score: Heart Score Response (Comments) Value History N/A 0 EKG N/A 0 Age N/A 0 Risk Factors N/A 0 Troponin N/A 0 Total 0 I personally scribed for JOANN NICE MD ([email or web address]) on 01/29/25 at 02:53. Electronically submitted by Mauro Rizo ([email or web address]). JOANN NICE MD Jan 29, 2025 02:53
[2025-01-29 03:22] LABS: Hematocrit 38.7 % (41.0-53.0); Hemoglobin 12.6 g/dL (13.5-17.5); Mean Corpuscular Hemoglobin 29.6 pg (28.0-32.0); Mean Corpuscular Volume 90.8 fL (80.0-100.0); Nucleated Red Blood Cells % 0.1 %
[2025-01-29 03:40] LABS: Albumin 4.2 g/dL (3.2-4.8); Anion Gap 13 (5-15); BUN/Creatinine Ratio 7.7 (10.0-20.0); Blood Urea Nitrogen 16 mg/dL (9-23); Calcium 9.1 mg/dL (8.7-10.4); Lipase 47 U/L (12-53); Sodium 143 mmol/L (136-145); Total Protein 6.9 g/dL (5.7-8.2)
[2025-01-29 03:41] LABS: Bilirubin, Total 0.6 mg/dL (0.2-1.0)
[2025-01-29 03:42] LABS: Alanine Aminotransferase 55 U/L (7-40); Alkaline Phosphatase 118 U/L (46-116); Carbon Dioxide 18 mmol/L (20-31); Chloride 112 mmol/L (98-107); Glucose 126 mg/dL (74-106); Potassium 3.3 mmol/L (3.5-5.1)
[2025-01-29 05:19] VITALS: BP 110/76; TEMP 98.1
[2025-01-29 05:35] VITALS: PULSE 78; RESP 18; O2SAT 98
[2025-01-29] MEDS: ONDANSETRON ODT 4 MG TAB PO ONE (05:36)
[2025-01-29] MEDS: HYDROcodone-ACET 10/325MG TAB PO ONE (05:36)
== END 2025-01-29 05:36 | disposition home or self-care (01) ==
LOC: ER 02:36
DX: R10.84 Generalized abdominal pain (principal); R11.2 Nausea with vomiting, unspecified; F41.9 Anxiety disorder, unspecified; N18.9 Chronic kidney disease, unspecified; F20.9 Schizophrenia, unspecified; Z79.899 Other long term (current) drug therapy; Z59.00 Homelessness unspecified; Z85.038 Personal history of other malignant neoplasm of large intestine; Z87.440 Personal history of urinary (tract) infections; Z87.442 Personal history of urinary calculi; Z90.49 Acquired absence of other specified parts of digestive tract
CPT/HCPCS: 36415; 80053; 83690; 85025